=== PATIENT | female | born 1955 | race Caucasian/White ===

== ENCOUNTER → 2016-05-13 | Outpatient (CLI) | payer OTHER ==
[~2016-05-13] MED LIST: /ATOR40TA OR; /ESOM40CA; /MOXI40TA; ACET65TA OR; ALBU0.63 INH; ALBU17IN INH; ALBU2TAB OR; ALBU83IN IN; ALBU83IN INH; AMIT10TA PO; AMIT10TA2 OR; AMIT25TA PO; ASPI1TAB PO; ASPI81TA85 PO; CEPA0.05 PO; CHOL4PW PO; DEXI30CA PO; DILA2TAB; FAMO40TA3 PO; FLAG250T; FLAG500T; IBUP600T; LIPI20TA PO; NICO21DI4 TD; OTC SINUS MED PO; PLAV75TA2 OR; PLAV75TA38 PO; PRED10TA PO; PREV15CA OR; RANI15TA PO; TYLE325T5 PO; XYZA5TAB2 PO; XYZASOL2; XYZASOL2 PO; ZOFR20TA PO; [UNRECOGNIZED DRUG - CODE] PO; [UNRECOGNIZED DRUG - CODE] XX; [UNRECOGNIZED DRUG - OTHER] PO; dexilant PO
--- NOTE | 2016-05-13 09:00 | REP ---
Chest x-ray: Two views. History: COPD. Comparison chest x-ray is from July 01, 2014. Findings: The lungs are slightly hyperinflated but clear. Pleural angles are sharp. Heart size is normal. There are degenerative changes in the thoracic spine. Pulmonary vasculature is not increased. Impression: Mild hyperinflation otherwise no acute disease. Signed by Gunnar Guillaume MD 05/13/2016 12:22 P
[2016-05-13 12:34] LABS: BASO % 0.4 % (0.0-1.0); EOS # 0.3 K/mm3 (0.0-0.50); EOS % 4.3 % (0.0-3.0); LARGE UNSTAINED CELL # 0.1 K/mm3 (0.0-0.4); LARGE UNSTAINED CELL % 1.3 % (0.0-4.0); LYMPH # 2.3 K/mm3 (1.5-4.5); LYMPH % 30.7 % (24.0-44.0); MEAN CORPUSCULAR HEMOGLOBIN 29.7 pg (27.0-33.0); MEAN CORPUSCULAR HGB CONC 32.3 g/dl (32.0-36.5); MEAN CORPUSCULAR VOLUME 91.9 fl (80.0-96.0); MONO # 0.4 K/mm3 (0.0-0.8); MONO % 6.1 % (0.0-5.0); NEUTROPHILS # 4.1 K/mm3 (1.8-7.7); NEUTROPHILS % 57.3 % (36.0-66.0); PLATELET COUNT, AUTOMATED 296 k/mm3 (150-450); RED CELL DISTRIBUTION WIDTH 13.3 % (11.5-14.5); WHITE BLOOD COUNT 7.2 K/mm3 (4.0-10.0)
[2016-05-13 12:58] LABS: VITAMIN B12 LEVEL 618 PG/ML
[2016-05-13 12:59] LABS: FOLATE 15.2 NG/ML
[2016-05-13 13:09] LABS: ALBUMIN 3.9 GM/DL (3.2-5.2); ALBUMIN/GLOBULIN RATIO 1.05 (1.00-1.93); ALKALINE PHOSPHATASE 204 U/L (45-117); ALT/SGPT 33 U/L (12-78); ANION GAP 9 MEQ/L (8-16); AST/SGOT 21 U/L (15-37); BILIRUBIN,TOTAL 0.4 MG/DL (0.2-1.0); BLOOD UREA NITROGEN 18 MG/DL (7-18); CARBON DIOXIDE LEVEL 29 MEQ/L (21-32); CHLORIDE LEVEL 107 MEQ/L (98-107); CHOLESTEROL LEVEL 170 MG/DL (<200); CREATININE FOR GFR 0.89 MG/DL (0.55-1.02); GLOMERULAR FILTRATION RATE > 60.0 (>45); GLUCOSE, FASTING 91 MG/DL (80-110); MAGNESIUM LEVEL 2.1 MG/DL (1.8-2.4); PHOSPHORUS LEVEL 3.8 MG/DL (2.5-4.9); POTASSIUM SERUM 4.3 MEQ/L (3.5-5.1); SODIUM LEVEL 145 MEQ/L (136-145); TOTAL PROTEIN 7.6 GM/DL (6.4-8.2); TRIGLYCERIDES LEVEL 132 MG/DL (<150)
== END ==
LOC: M ADAMS 08:05
PROVIDERS: ATTEND Physician Assistant Medical
DX: E78.2 Mixed hyperlipidemia (principal); R53.83 Other fatigue; J44.9 Chronic obstructive pulmonary disease, unspecified

== ENCOUNTER → 2016-05-24 | Outpatient (CLI) | payer OTHER ==
--- NOTE | 2016-05-24 11:10 | REP ---
MRI BRAIN WITHOUT CONTRAST: HISTORY: Left side weakness. COMPARISON: 11/12/2011. Areas of increased signal intensity on T2-weighted images are present in the periventricular and subcortical white matter and candis. This represents small vessel ischemic disease. There is no intraparenchymal hemorrhage, infarct, mass or midline shift. The ventricular system is normal in appearance. There is no extracerebral collection. Mucosal thickening is present in the ethmoid and right maxillary sinuses. IMPRESSION: Small vessel ischemic disease. Signed by José Thayer MD 05/24/2016 11:12 A
== END ==
LOC: M RAD 09:31
PROVIDERS: ATTEND Physician Assistant Medical
DX: I63.9 Cerebral infarction, unspecified (principal)

== ENCOUNTER → 2016-07-12 | Outpatient (REF) | payer OTHER ==
[2016-07-12 19:01] LABS: ANION GAP 8 MEQ/L (8-16); BLOOD UREA NITROGEN 13 MG/DL (7-18); CALCIUM LEVEL 8.8 MG/DL (8.8-10.2); CARBON DIOXIDE LEVEL 28 MEQ/L (21-32); CHLORIDE LEVEL 108 MEQ/L (98-107); CREATININE FOR GFR 0.83 MG/DL (0.55-1.02); GLOMERULAR FILTRATION RATE > 60.0 (>45); GLUCOSE, FASTING 99 MG/DL (80-110); POTASSIUM SERUM 4.6 MEQ/L (3.5-5.1); SODIUM LEVEL 144 MEQ/L (136-145)
== END ==
LOC: M LAB REF 16:02
PROVIDERS: ATTEND Physician Assistant Medical
DX: L04.0 Acute lymphadenitis of face, head and neck (principal)

== ENCOUNTER → 2016-07-20 | Outpatient (CLI) | payer OTHER ==
[~2016-07-20] MED LIST changes: +ISOVUE-370 76% 100ML VIAL (Q9967) As Ordered ONE
--- NOTE | 2016-07-20 09:19 | REP ---
CT NECK WITH CONTRAST: HISTORY: Acute lymphadenitis. CONTRAST: Isovue 370, 75 mL. COMPARISON: 05/03/2014 The naso-, mariela- and hypopharynx, larynx, and subglottic trachea are normal in appearance. The salivary glands are normal. A 7 mm calcification is present in the right thyroid lobe. The left thyroid lobe is normal in appearance. Small lymph nodes less than 1 cm in size are present in the internal jugular chains, posterior triangles, submandibular, submental and supraclavicular areas. Atherosclerotic calcification is present at the carotid bifurcations. Degenerative change is present in the cervical spine. The lung apices are clear. Mucosal thickening is present in the right ethmoid and maxillary sinuses. IMPRESSION: There is no neck mass or adenopathy. Signed by José Thayer MD 07/20/2016 09:23 A
== END ==
LOC: M RAD 07:34
PROVIDERS: ATTEND Physician Assistant Medical
DX: I88.9 Nonspecific lymphadenitis, unspecified (principal)

== ENCOUNTER → 2016-07-22 | Outpatient (CLI) | payer OTHER ==
[~2016-07-22] MED LIST changes: -ISOVUE-370 76% 100ML VIAL (Q9967) As Ordered ONE
--- NOTE | 2016-07-22 07:59 | REP ---
Clinical: Solitary thyroid nodule. Technique: Real time alex scale and color evaluation using linear high frequency transducer. Findings: The thyroid gland is relatively normal in contour, size, and parenchymal echogenicity. Right lobe measures 3.8 x 1.1 x 1.1 cm and includes 7 mm calcified nodule. Left lobe measures 3.3 x 1.4 x 1.2 cm without cyst or nodule. Impression: 7 mm calcified nodule in the right thyroid lobe. Signed by Jose Gonzalez MD 07/22/2016 07:50 A
== END ==
LOC: M RAD 07:01
PROVIDERS: ATTEND Physician Assistant Medical
DX: E04.1 Nontoxic single thyroid nodule (principal)

== ENCOUNTER → 2016-08-09 | Outpatient (REF) | payer OTHER | LOC: M LABDRAW1 13:10 | PROVIDERS: ATTEND Internal Medicine Endocrinology, Diabetes & Metabolism | DX: E04.1 Nontoxic single thyroid nodule (principal) ==

== ENCOUNTER → 2016-10-18 | Outpatient (CLI) | payer OTHER ==
[~2016-10-18] MED LIST changes: -DEXI30CA PO; +DEXI30CA2 PO; +PLAV1TAB2 PO; -PLAV75TA38 PO
--- NOTE | 2016-10-18 19:13 | REP ---
PA and lateral chest: Comparisons 07/01/2014. The lung garcia are clear. The cardiac size is normal The ken, mediastinum, and bony thorax are unremarkable. Impression: Negative PA and lateral chest. . There is no interval change. Signed by Harvey Zuluaga MD 10/18/2016 07:05 P
== END ==
LOC: M RAD 17:09
PROVIDERS: ATTEND Physician Assistant Medical
DX: J06.9 Acute upper respiratory infection, unspecified (principal)

== ENCOUNTER → 2017-07-30 | Outpatient (REF) | payer OTHER ==
[2017-07-30 17:41] LABS: ALBUMIN 3.8 GM/DL (3.2-5.2); ALBUMIN/GLOBULIN RATIO 1.12 (1.00-1.93); ALKALINE PHOSPHATASE 163 U/L (45-117); ALT/SGPT 30 U/L (12-78); ANION GAP 5 MEQ/L (8-16); AST/SGOT 13 U/L (7-37); BILIRUBIN,TOTAL 0.3 MG/DL (0.2-1.0); BLOOD UREA NITROGEN 22 MG/DL (7-18); C REACTIVE PROTEIN QUANTITATIV 1.12 MG/DL (0.00-0.30); CALCIUM LEVEL 9.1 MG/DL (8.8-10.2); CARBON DIOXIDE LEVEL 30 MEQ/L (21-32); CHLORIDE LEVEL 106 MEQ/L (98-107); CHOLESTEROL LEVEL 257 MG/DL (<200); CHOLESTEROL RISK RATIO 3.724 (<5); CPK CREATINE PHOSPHOKINASE 67 U/L (26-192); CREATININE FOR GFR 0.76 MG/DL (0.55-1.30); GLOMERULAR FILTRATION RATE > 60.0 (>45); GLUCOSE, FASTING 95 MG/DL (70-100); HDL CHOLESTEROL 69 MG/DL (>40); LDL CHOLESTEROL 161.8 MG/DL (<100); NON-HDL-C 188 MG/DL; POTASSIUM SERUM 4.6 MEQ/L (3.5-5.1); SODIUM LEVEL 141 MEQ/L (136-145); TOTAL PROTEIN 7.2 GM/DL (6.4-8.2); TRIGLYCERIDES LEVEL 131 MG/DL (<150)
[2017-07-30 18:30] LABS: ERYTHROCYTE SEDIMENTATION RATE 8 mm/hr (0-30)
== END ==
LOC: M LABDRWAD 14:44
DX: M62.82 Rhabdomyolysis (principal); Z72.0 Tobacco use
CPT/HCPCS: 82550

== ENCOUNTER → 2017-10-03 | Outpatient (REF) | payer OTHER ==
[2017-10-03 12:31] LABS: BASO # 0.1 10^3/uL (0.0-0.2); BASO % 0.9 % (0.0-1.0); EOS # 0.2 10^3/uL (0.0-0.50); EOS % 3.9 % (0.0-3.0); HEMATOCRIT 44.6 % (36.0-47.0); HEMOGLOBIN 14.7 g/dl (12.0-15.5); IMMATURE GRANULOCYTE % 0.2 % (0-3.0); LYMPH # 2.2 10^3/uL (1.5-4.5); LYMPH % 38.1 % (24.0-44.0); MEAN CORPUSCULAR HEMOGLOBIN 29.9 pg (27.0-33.0); MEAN CORPUSCULAR VOLUME 90.8 fl (80.0-96.0); MONO # 0.5 10^3/uL (0.0-0.8); MONO % 8.2 % (0.0-5.0); NEUTROPHILS # 2.9 10^3/uL (1.8-7.7); NEUTROPHILS % 48.7 % (36.0-66.0); PLATELET COUNT, AUTOMATED 292 10^3/uL (150-450); RED BLOOD COUNT 4.91 10^6/uL (4.00-5.40); RED CELL DISTRIBUTION WIDTH 14.4 % (11.5-14.5); WHITE BLOOD COUNT 5.9 10^3/uL (4.0-10.0)
[2017-10-03 12:45] LABS: ALBUMIN 3.8 GM/DL (3.2-5.2); ALBUMIN/GLOBULIN RATIO 1.23 (1.00-1.93); ALKALINE PHOSPHATASE 156 U/L (45-117); ALT/SGPT 31 U/L (12-78); ANION GAP 9 MEQ/L (8-16); AST/SGOT 18 U/L (7-37); BILIRUBIN,TOTAL 0.3 MG/DL (0.2-1.0); BLOOD UREA NITROGEN 18 MG/DL (7-18); CALCIUM LEVEL 8.9 MG/DL (8.8-10.2); CARBON DIOXIDE LEVEL 28 MEQ/L (21-32); CHLORIDE LEVEL 108 MEQ/L (98-107); CHOLESTEROL LEVEL 212 MG/DL (<200); CHOLESTEROL RISK RATIO 3.719 (<5); CPK CREATINE PHOSPHOKINASE 149 U/L (26-192); CREATININE FOR GFR 0.85 MG/DL (0.55-1.30); GLOMERULAR FILTRATION RATE > 60.0 (>45); GLUCOSE, FASTING 92 MG/DL (70-100); HDL CHOLESTEROL 57 MG/DL (>40); LDL CHOLESTEROL 130.8 MG/DL (<100); NON-HDL-C 155 MG/DL; POTASSIUM SERUM 4.1 MEQ/L (3.5-5.1); SODIUM LEVEL 145 MEQ/L (136-145); TOTAL PROTEIN 6.9 GM/DL (6.4-8.2); TRIGLYCERIDES LEVEL 121 MG/DL (<150)
== END ==
LOC: M LABDRWAD 12:12
DX: G45.9 Transient cerebral ischemic attack, unspecified (principal)

== ENCOUNTER → 2017-12-10 | Outpatient (REF) | payer OTHER ==
[2017-12-10 17:20] LABS: ALBUMIN 4.2 GM/DL (3.2-5.2); ALBUMIN/GLOBULIN RATIO 1.35 (1.00-1.93); ALKALINE PHOSPHATASE 162 U/L (45-117); ALT/SGPT 32 U/L (12-78); ANION GAP 8 MEQ/L (8-16); AST/SGOT 16 U/L (7-37); BILIRUBIN,TOTAL 0.4 MG/DL (0.2-1.0); BLOOD UREA NITROGEN 15 MG/DL (7-18); CALCIUM LEVEL 9.6 MG/DL (8.8-10.2); CARBON DIOXIDE LEVEL 30 MEQ/L (21-32); CHLORIDE LEVEL 105 MEQ/L (98-107); CHOLESTEROL LEVEL 227 MG/DL (<200); CHOLESTEROL RISK RATIO 4.053 (<5); CPK CREATINE PHOSPHOKINASE 294 U/L (26-192); CREATININE FOR GFR 0.78 MG/DL (0.55-1.30); GLOMERULAR FILTRATION RATE > 60.0 (>45); GLUCOSE, FASTING 94 MG/DL (70-100); HDL CHOLESTEROL 56 MG/DL (>40); LDL CHOLESTEROL 151.6 MG/DL (<100); NON-HDL-C 171 MG/DL; POTASSIUM SERUM 4.2 MEQ/L (3.5-5.1); SODIUM LEVEL 143 MEQ/L (136-145); TOTAL PROTEIN 7.3 GM/DL (6.4-8.2); TRIGLYCERIDES LEVEL 97 MG/DL (<150)
== END ==
LOC: M SFHCADAM 10:22
DX: R25.2 Cramp and spasm (principal); E78.5 Hyperlipidemia, unspecified

== ENCOUNTER → 2018-04-14 | Outpatient (REF) | payer OTHER ==
[~2018-04-14] MED LIST changes: +AZIT500T2 PO; +CETI10TA PO; +CLAR5TAB7 PO; +DEXI60CA2 PO; +PRED10TA2 PO; +ZITHTAB PO; -ZOFR20TA PO; +ZOFR4TAB16 PO
[2018-04-14 17:32] LABS: ALBUMIN 3.9 GM/DL (3.2-5.2); ALT/SGPT 27 U/L (12-78); BILIRUBIN,TOTAL 0.4 MG/DL (0.2-1.0); BLOOD UREA NITROGEN 9 MG/DL (7-18); C REACTIVE PROTEIN QUANTITATIV 7.57 MG/DL (0.00-0.30); CALCIUM LEVEL 9.3 MG/DL (8.8-10.2); CARBON DIOXIDE LEVEL 28 MEQ/L (21-32); CHLORIDE LEVEL 104 MEQ/L (98-107); CPK CREATINE PHOSPHOKINASE 301 U/L (26-192); CREATININE FOR GFR 0.64 MG/DL (0.55-1.30); GLOMERULAR FILTRATION RATE > 60.0 (>45); GLUCOSE, FASTING 88 MG/DL (70-100); POTASSIUM SERUM 4.6 MEQ/L (3.5-5.1); RHEUMATOID FACTOR QUANT < 10.0 IU/ML (<15.0); SODIUM LEVEL 140 MEQ/L (136-145); TOTAL PROTEIN 7.4 GM/DL (6.4-8.2)
== END ==
LOC: M SFHCADAM 11:03
PROVIDERS: ATTEND Family Medicine
DX: R74.8 Abnormal levels of other serum enzymes (principal)

== ENCOUNTER → 2018-04-17 | Outpatient (CLI) | payer OTHER ==
--- NOTE | 2018-04-17 09:51 | REP ---
Chest x-ray: Two views. History: Wheezing. Comparison study: July 12, 2017. Findings: The lungs are well inflated and clear. The pleural angles are sharp. Heart size is normal. There are degenerative changes in the thoracic spine. Pulmonary vasculature is not increased. Impression: No acute disease. Electronically Signed by Gunnar Guillaume MD 04/17/2018 09:43 A
== END ==
LOC: M ADAMS 09:14
PROVIDERS: ATTEND Family Medicine
DX: R06.2 Wheezing (principal)

== ENCOUNTER → 2018-05-20 | Outpatient (CLI) | payer MEDICARE, MEDICAID ==
[2018-05-20 18:59] LABS: BASO % 0.5 % (0.0-1.0); EOS # 0.3 10^3/uL (0.0-0.50); EOS % 3.7 % (0.0-3.0); HEMATOCRIT 50.7 % (36.0-47.0); HEMOGLOBIN 16.4 g/dl (12.0-15.5); LYMPH % 23.9 % (24.0-44.0); MEAN CORPUSCULAR HEMOGLOBIN 29.7 pg (27.0-33.0); MEAN CORPUSCULAR HGB CONC 32.3 g/dl (32.0-36.5); MEAN CORPUSCULAR VOLUME 91.7 fl (80.0-96.0); MONO # 0.6 10^3/uL (0.0-0.8); MONO % 7.6 % (0.0-5.0); NEUTROPHILS # 5.3 10^3/uL (1.8-7.7); NEUTROPHILS % 63.9 % (36.0-66.0); PLATELET COUNT, AUTOMATED 290 10^3/uL (150-450); RED BLOOD COUNT 5.53 10^6/uL (4.00-5.40); WHITE BLOOD COUNT 8.3 10^3/uL (4.0-10.0)
== END ==
LOC: M LABDRWAD 12:29
PROVIDERS: ATTEND Physician Assistant
DX: R59.0 Localized enlarged lymph nodes (principal); J02.9 Acute pharyngitis, unspecified

== ENCOUNTER 2018-07-30 03:26 | Inpatient (IN) | payer MEDICARE, MEDICAID ==
[~2018-07-30] VITALS: Ht 170.2 cm; Wt 70.9 kg
[~2018-07-30 03:26] MED LIST changes: -/ATOR40TA OR; -/ESOM40CA; -/MOXI40TA; -ASPI1TAB PO; +ASPI81TA26 PO; +AVEL1TAB2; +LIPI1TAB2 OR; +NEXI1CAP3; +PRED-351 PO; -PRED10TA PO; +[UNRECOGNIZED DRUG - CODE] PO; -[UNRECOGNIZED DRUG - CODE] PO; +[UNRECOGNIZED DRUG - CODE] XX; -[UNRECOGNIZED DRUG - CODE] XX
[2018-07-30 04:03] LABS: BASO % 0.3 % (0.0-1.0); EOS # 0.4 10^3/uL (0.0-0.50); EOS % 3.7 % (0.0-3.0); HEMATOCRIT 44.7 % (36.0-47.0); HEMOGLOBIN 14.3 g/dl (12.0-15.5); LYMPH # 1.9 10^3/uL (1.5-4.5); LYMPH % 18.5 % (24.0-44.0); MEAN CORPUSCULAR HEMOGLOBIN 29.3 pg (27.0-33.0); MEAN CORPUSCULAR VOLUME 91.6 fl (80.0-96.0); MONO # 0.7 10^3/uL (0.0-0.8); NEUTROPHILS # 7.3 10^3/uL (1.8-7.7); NEUTROPHILS % 70.1 % (36.0-66.0); PLATELET COUNT, AUTOMATED 265 10^3/uL (150-450); RED BLOOD COUNT 4.88 10^6/uL (4.00-5.40); WHITE BLOOD COUNT 10.4 10^3/uL (4.0-10.0)
[2018-07-30] MEDS ORDERED: dexameTHASONE 20 MG/5 ML VIAL (J1100) IV ONE ×2 (04:15→04:45)
[2018-07-30 04:24] LABS: BLOOD UREA NITROGEN 18 MG/DL (7-18); CALCIUM LEVEL 8.2 MG/DL (8.8-10.2); CARBON DIOXIDE LEVEL 28 MEQ/L (21-32); CHLORIDE LEVEL 109 MEQ/L (98-107); CREATININE FOR GFR 0.75 MG/DL (0.55-1.30); GLOMERULAR FILTRATION RATE > 60.0 (>45); GLUCOSE, FASTING 105 MG/DL (70-100); POTASSIUM SERUM 3.8 MEQ/L (3.5-5.1); SODIUM LEVEL 143 MEQ/L (136-145)
[2018-07-30] MEDS ORDERED: dexameTHASONE 20 MG/5 ML VIAL (J1100) As Ordered ONE (04:46)
[2018-07-30] MEDS: IPRATROPIUM 0.5MG/ALBUTEROL 2.5MG INH SOL UD 3ML (DUONEB)(J7620) NEB SCH ×6 (04:48→20:48)
[2018-07-30 05:08] LABS: ABG BASE EXCESS -0.5 (-2.0-2.0); ABG HCO3 25.3 MEQ/L (22.0-26.0); ABG O2 SATURATION 89.7 % (95.0-99.0); ABG PARTIAL PRESSURE CO2 46.2 mmHg (35.0-45.0); ABG PARTIAL PRESSURE O2 58.5 mmHg (75.0-100.0); ABG STANDARD HCO3 23.8 MEQ/L (22.0-26.0); ABG TOTAL CO2 26.8 MEQ/L (23.0-31.0); ABG pH (ARTERIAL) 7.357 UNITS (7.350-7.450)
[2018-07-30] MEDS ORDERED: ACET-683 PO (05:23)
[2018-07-30] MEDS ORDERED: VENTAER INH (05:23)
[2018-07-30] MEDS ORDERED: LIDO4PAD TOP (05:23)
[2018-07-30] MEDS ORDERED: ALBUTEROL SULFATE 2.5 MG/0.5 ML INH NEB SOLN NEB PRN (06:15)
[2018-07-30] MEDS ORDERED: AZITHROMYCIN 250 MG TAB PO SCH (06:15)
[2018-07-30] MEDS ORDERED: LIDOCAINE 5% OINT 30 GM TOP PRN (06:30)
--- NOTE | 2018-07-30 08:05 | REP ---
Chest one-view HISTORY: Cough Comparison: 04/17/2018 The lungs are clear. The heart is normal in size. The pulmonary vasculature is normal in appearance. Impression: No acute disease. Electronically Signed by José Thayer MD 07/30/2018 07:56 A
[2018-07-30] MEDS: PANTOPRAZOLE 40MG TAB (PROTONIX) PO SCH ×3 (08:33→09:00)
[2018-07-30] MEDS: HEPARIN SOD (PORCINE) 5000 UNITS/ML VIAL SC SCH ×3 (08:34→23:05)
[2018-07-30 10:00] VITALS: BP 108/61
--- NOTE | 2018-07-30 10:20 | ECGEPIP ---
Stationary ECG Study [facility] - ED Test Date: 2018-07-30 Pat Name: CINTIA HODGE Department: Room: [place] [address] Gender: F Set Decorator: BRITTA : 1955 Requested By: OSMIN RAMIREZ Order Number: [id number] Reading MD: Ashley Dhillon Measurements Intervals Haines Rate: 94 P: 84 OR: 128 QRS: 41 QRSD: 85 T: 57 QT: 356 QTc: 446 Interpretive Statements SINUS RHYTHM NSTTW ABNORMALITY Electronically Signed On 07-30-2018 10:20:36 EDT by Ashley Dhillon
[2018-07-30] MEDS: methylPREDNISolone INJ 125 MG/2 ML VIAL (J2930) IV SCH ×2 (12:59→20:01)
[2018-07-30 14:00] VITALS: BP 137/71
--- NOTE | 2018-07-30 14:56 | IPNPDOC ---
Subjective Date Seen The patient was seen on 07/30/18. N.B. I am writing this progress not without the benefit of an H&P available, nor any checkout from the admitting physician. I have reviewed her orders, and interviewed the patient for the information in this note. (traveling representative) Subjective Chief Complaint/HPI Difficulty breathing Events since last encounter Ana appears to be admitted for a COPD exacerbation. She reports she continues to be quite short of breath when she gets up and moves around, for example to go to the bathroom. She also reports that she gets significant lower extremity cramps at nighttime she has an albuterol nebulizer treatment. This is to whether she is at home or here. She reports that Lidoderm patches have seemed to help mitigate the symptoms in the past. General: Reports: Normal Appetite Constitutional: Denies: Chills, Fever Pulmonary: Reports: Dyspnea, Cough; Denies: Pleuritic Chest Pain Cardiovascular: Denies: Chest Pain, Palpitations Psych: Reports: Mood Normal Objective Physical Examination General Exam: Positive: Alert, Cooperative (sitting at the side of her bed talking to her daughter when I entered the room), No Acute Distress Eye Exam: Positive: Conjunctiva & lids normal; Negative: Sclera icteric ENT Exam: Positive: Mucous membr. moist/pink Neck Exam: Negative: JVD, Lymphadenopathy Chest Exam: Positive: Wheezing (mild but noted in all lung garcia), Diminished Heart Exam: Positive: Rate Normal, Normal S1, Normal S2; Negative: Murmurs Abdomen Exam: Positive: Normal bowel sounds, Soft; Negative: Tenderness Extremity Exam: Negative: Edema Psych Exam: Positive: Mood NL, Oriented x 3 A-FIB/CHADSVASC A-FIB History Current/History of A-Fib/PAF?: No Assessment /Plan Problems (1) COPD exacerbation Status: Acute Discussed With: Patient Problem Specific Plan: Monitor Clinically Problem Text: I reviewed the natural history of COPD exacerbations with her. I set the stage that she will not likely be ready for discharge until the end of the week. At this point I think she is on a reasonable regimen. The only thing I'll change is stopping the azithromycin, since I see no real evidence of a bacterial infection. I have ordered pro-calcitonin level to help clarify this. (2) Asthma Status: Acute Discussed With: Patient Problem Specific Plan: Monitor Clinically Problem Text: She has a known history of reactive airway disease. She reports that she has recently needed her home nebulized albuterol more than usual. I explained to her albuterol transiently lowers potassium levels; I strongly suspect this is the etiology of her lower extremity cramps. I will add on low- dose potassium supplementation to see if it mitigate this without making her hyperkalemic. Additionally I'll start Lidoderm patches his these have seemed to help in the past. (3) Seasonal allergies Status: Chronic Problem Text: Continue current regimen including Zyrtec. (4) GERD (gastroesophageal reflux disease) Status: Chronic Problem Specific Plan: Monitor Clinically Problem Text: Continue current dose of PPI. We will change this to IV in order to avoid the yellow dye in the tablets that we have as she has an allergy to yellow dye. Plan/VTE VTE Prophylaxis Ordered?: Yes (subcutaneous heparin) VS, I&O, 24H, Fishbone Vital Signs/I&O Vital Signs Date Time Temp Pulse Resp B/P (MAP) Pulse Ox O2 Delivery O2 Flow Rate FiO2 07/30/18 14:00 97.6 109 19 137/71 (93) 90 4.0 07/30/18 09:21 Nasal Cannula Laboratory Data 24H LABS Laboratory Tests 2 07/30/18 03:54: Immature Granulocyte % (Auto) 0.4, White Blood Count 10.4H, Red Blood Count 4.88, Hemoglobin 14.3, Hematocrit 44.7, Mean Corpuscular Volume 91.6, Mean Corpuscular Hemoglobin 29.3, Mean Corpuscular Hemoglobin Concent 32.0, Red Cell Distribution Width 14.1, Platelet Count 265, Neutrophils (%) (Auto) 70.1H, Lymphocytes (%) (Auto) 18.5L, Monocytes (%) (Auto) 7.0H, Eosinophils (%) (Auto) 3.7H, Basophils (%) (Auto) 0.3, Neutrophils # (Auto) 7.3, Lymphocytes # (Auto) 1.9, Monocytes # (Auto) 0.7, Eosinophils # (Auto) 0.4, Basophils # (Auto) 0.0, Nucleated Red Blood Cells % (auto) 0.0, Anion Gap 6L, Glomerular Filtration Rate > 60.0, Lactic Acid Level 1.0, Blood Urea Nitrogen 18, Creatinine 0.75, Sodium Level 143, Potassium Level 3.8, Chloride Level 109H, Carbon Dioxide Level 28, Calcium Level 8.2L 07/30/18 04:55: Blood Gas Bicarbonate Standard 23.8, Arterial Blood pH 7.357, Arterial Blood Partial Pressure CO2 46.2H, Arterial Blood Partial Pressure O2 58.5L, Arterial Blood Total CO2 26.8, Arterial Blood HCO3 25.3, Arterial Blood Base Excess -0.5, Arterial Blood Oxygen Saturation 89.7L CBC/BMP Laboratory Tests 07/30/18 03:54 Red Blood Count 4.88, Mean Corpuscular Volume 91.6, Mean Corpuscular Hemoglobin 29.3, Mean Corpuscular Hemoglobin Concent 32.0, Red Cell Distribution Width 14.1, Neutrophils (%) (Auto) 70.1 H, Lymphocytes (%) (Auto) 18.5 L, Monocytes (%) (Auto) 7.0 H, Eosinophils (%) (Auto) 3.7 H, Basophils (%) (Auto) 0.3, Neutrophils # (Auto) 7.3, Lymphocytes # (Auto) 1.9, Monocytes # (Auto) 0.7, E osinophils # (Auto) 0.4, Basophils # (Auto) 0.0, Calcium Level 8.2 L Microbiology Microbiology 07/30/18 Blood Culture, Received Pending 07/30/18 Blood Culture, Received Pending Dylan Patino MD Jul 30, 2018 14:56
[2018-07-30] MEDS: PANTOPRAZOLE 40MG INJ (PROTONIX) (C9113) IV SCH (16:14)
[2018-07-30] MEDS: CETIRIZINE (ZyrTEC) 10 MG TAB PO SCH (20:01)
[2018-07-30] MEDS: CLOPIDOGREL 75 MG TAB PO SCH (20:01)
[2018-07-30] MEDS: LIDOCAINE 5% (LIDODERM) PATCH TD PRN (21:12)
[2018-07-30] MEDS: guaiFENesin SYRUP 200 MG/10 ML UDC PO PRN (21:12)
[2018-07-30] MEDS: **NOTE PATIENT COMMENT** MISC XX SCH (21:12)
[2018-07-30 22:00] VITALS: BP 144/85
[2018-07-30] MEDS: ACETAMINOPHEN TAB 650MG DOSE (2X325MG) PO PRN (23:05)
[2018-07-31] MEDS: IPRATROPIUM 0.5MG/ALBUTEROL 2.5MG INH SOL UD 3ML (DUONEB)(J7620) NEB SCH ×4 (01:42→21:24)
[2018-07-31] MEDS: methylPREDNISolone INJ 125 MG/2 ML VIAL (J2930) IV SCH ×3 (04:34→20:50)
[2018-07-31] MEDS: guaiFENesin SYRUP 200 MG/10 ML UDC PO PRN ×2 (04:34→20:50)
[2018-07-31 06:00] VITALS: BP 127/56
[2018-07-31 06:07] LABS: HEMATOCRIT 42.9 % (36.0-47.0); HEMOGLOBIN 13.4 g/dl (12.0-15.5); MEAN CORPUSCULAR HEMOGLOBIN 28.8 pg (27.0-33.0); MEAN CORPUSCULAR HGB CONC 31.2 g/dl (32.0-36.5); MEAN CORPUSCULAR VOLUME 92.1 fl (80.0-96.0); PLATELET COUNT, AUTOMATED 280 10^3/uL (150-450); RED BLOOD COUNT 4.66 10^6/uL (4.00-5.40); WHITE BLOOD COUNT 12.5 10^3/uL (4.0-10.0)
[2018-07-31 06:30] LABS: ALBUMIN 3.6 GM/DL (3.2-5.2); ALT/SGPT 21 U/L (12-78); BILIRUBIN,TOTAL 0.2 MG/DL (0.2-1.0); BLOOD UREA NITROGEN 18 MG/DL (7-18); CALCIUM LEVEL 8.8 MG/DL (8.8-10.2); CARBON DIOXIDE LEVEL 29 MEQ/L (21-32); CHLORIDE LEVEL 109 MEQ/L (98-107); GLOMERULAR FILTRATION RATE > 60.0 (>45); GLUCOSE, FASTING 130 MG/DL (70-100); POTASSIUM SERUM 4.3 MEQ/L (3.5-5.1); SODIUM LEVEL 142 MEQ/L (136-145); TOTAL PROTEIN 6.9 GM/DL (6.4-8.2)
[2018-07-31] MEDS: PANTOPRAZOLE 40MG INJ (PROTONIX) (C9113) IV SCH (08:12)
[2018-07-31] MEDS: POTASSIUM CHLORIDE 10 MEQ SR TABLET PO SCH (08:12)
[2018-07-31] MEDS: HEPARIN SOD (PORCINE) 5000 UNITS/ML VIAL SC SCH ×3 (08:12→23:37)
[2018-07-31] MEDS: ACETAMINOPHEN TAB 650MG DOSE (2X325MG) PO PRN ×2 (08:22→23:37)
--- NOTE | 2018-07-31 08:51 | HPE ---
DATE OF ADMISSION: 07/30/2018 CHIEF COMPLAINT: Shortness of breath. HISTORY OF PRESENTING ILLNESS: A 63-year-old female with history of chronic obstructive pulmonary disease (COPD) was brought to emergency department complaining of worsening shortness of breath, cough, whitish sputum for the 2 days. No specific aggravating or relieving factor. In the emergency department, patient was found with vitals of temperature 98.6, heart rate 102, respiratory rate 20, blood pressure 118/66, saturating 85% on room air improved with 4 liters of supplemental oxygen to 94%. A chest x-ray did not show any acute pathology. Patient was given intravenous (IV) Decadron, three DuoNebs without any relief. Hospitalist service was consulted to admit the patient for further management. Patient was and examined at bedside. Family members at bedside. Patient was not able to speak in full sentences, using accessory muscles of respiration. Patient complained of shortness of breath, cough, and whitish sputum. PAST MEDICAL HISTORY: COPD, gastroesophageal reflux disease (GERD), seasonal allergies, hyperlipidemia, history of CVA with no residual deficit, history of Clostridium (C) difficile infection in past. PAST SURGICAL HISTORY: (C) section, left oophorectomy, left shoulder lipoma biopsy, esophageal/vocal cyst removal, appendectomy, right shoulder rotator cuff repair. ALLERGIES: Multiple allergies: PENICILLIN unknown reaction, CEPHALOSPORIN unknown reaction MORPHINE causes hives, CLINDAMYCIN causes throat closing, ERYTHROMYCIN unknown reaction, SULFA DRUGS unknown reaction, TETRACYCLINE unknown reaction. HOME MEDICATIONS: Reviewed. Please refer to permanent medical record. SOCIAL HISTORY: Active smoker, occasional alcohol intake, denied illicit drug abuse, independent for activities of daily living. FAMILY HISTORY: Reviewed. Noncontributory. REVIEW OF SYSTEMS: 10-point review of system was performed and it was negative except as per history of presenting illness (HPI). PHYSICAL EXAMINATION: GENERAL: Cooperative, in mild respiratory distress. HEENT: Head atraumtic. Bilateral pupils round, reacting to light and accommodation. Oral mucosa moist. NECK: Supple. RESPIRATORY SYSTEM: Bilaterally decreased breath sounds, diffuse rhonchi, not able to speak in full sentences, using accessory muscle of respiration. CARDIOVASCULAR SYSTEM: Regular rate and rhythm. EXTREMITIES: No peripheral edema. SKIN: No rash. ABDOMEN: Soft, nontender. Normal bowel sounds. CENTRAL NERVOUS SYSTEM: No focal deficit. PSYCHIATRIC: Mood normal. Labs and vital signs and imaging studies reviewed. White count 10.4, hemoglobin 14.3, platelets 265. BUN 18, creatinine 0.75. Chest x-ray: No acute pathology. ABG is pH 7.357, pCO2 46.2, pO2 58.5. ASSESSMENT: 63-year-old, active smoker, female complaining of worsening shortness of breath, cough, whitish sputum for past few days. Patient stated that she was exposed to cats at her daughter's house. IMPRESSION: Acute hypoxic respiratory failure secondary to COPD exacerbation. PLAN: 1. Acute hypoxic respiratory failure secondary to COPD exacerbation: IV Solu-Medrol, oral azithromycin, DuoNebs, supplemental oxygen. Will continue to monitor respiratory status closely. 2. COPD exacerbation: IV Solu-Medrol, oral azithromycin. 3. Nicotine dependence: Patient was counseled about smoking cessation. 4. History of CVA: We will continue home medication Plavix. 5. Seasonal allergies: We will continue oral cetirizine.
[2018-07-31] MEDS ORDERED: FLUBLOK(EGG FREE)(QUAD)INFLUENZA VACC 0.5ML SYRINGE (90682)18YRS&OLDER IM ONE (09:00)
--- NOTE | 2018-07-31 10:49 | IPNPDOC ---
Subjective Date Seen The patient was seen on 07/31/18. Subjective Chief Complaint/HPI Pt this morning without new concerns. She reports that she thinks her breathing is the same or worse than yesterday. + dry cough. Would like a nicotine patch. General: Denies: Fatigue Constitutional: Denies: Chills, Fever Pulmonary: Reports: Dyspnea, Cough Cardiovascular: Denies: Chest Pain, Palpitations Gastrointestinal: Denies: Nausea, Vomiting, Diarrhea Psych: Reports: Mood Normal Objective Physical Examination General Exam: Positive: Alert, No Acute Distress ENT Exam: Positive: Mucous membr. moist/pink Chest Exam: Positive: Wheezing (mild but noted in all lung garcia), Diminished Heart Exam: Positive: Rate Normal, Normal S1, Normal S2; Negative: Murmurs Abdomen Exam: Positive: Normal bowel sounds, Soft; Negative: Tenderness Extremity Exam: Negative: Edema Psych Exam: Positive: Mood NL, Oriented x 3 A-FIB/CHADSVASC A-FIB History Current/History of A-Fib/PAF?: No Assessment /Plan Assessment 07/31: She complains of irritability and insomnia; discussed that these were likely secondary to her steroids. She reports that she is breathing better than previously, and I decreased her Solumedrol. Offered a Benadryl, but she states that it doesn't help her sleep. -- CDT Problems (1) COPD exacerbation Status: Acute Discussed With: Patient Problem Specific Plan: Monitor Clinically Problem Text: 07/31 Cont with nebs, O2, Solumedrol 80 Q8H. 07/30 I reviewed the natural history of COPD exacerbations with her. I set the stage that she will not likely be ready for discharge until the end of the week. At this point I think she is on a reasonable regimen. The only thing I'll change is stopping the azithromycin, since I see no real evidence of a bacterial infection. I have ordered pro-calcitonin level to help clarify this. (2) Asthma Status: Acute Discussed With: Patient Problem Specific Plan: Monitor Clinically Problem Text: She has a known history of reactive airway disease. She reports that she has recently needed her home nebulized albuterol more than usual. I explained to her albuterol transiently lowers potassium levels; I strongly suspect this is the etiology of her lower extremity cramps. I will add on low- dose potassium supplementation to see if it mitigate this without making her hyperkalemic. Additionally I'll start Lidoderm patches his these have seemed to help in the past. (3) Seasonal allergies Status: Chronic Problem Text: Continue current regimen including Zyrtec. (4) GERD (gastroesophageal reflux disease) Status: Chronic Problem Specific Plan: Monitor Clinically Problem Text: Continue current dose of PPI. We will change this to IV in order to avoid the yellow dye in the tablets that we have as she has an allergy to yellow dye. Plan/VTE VTE Prophylaxis Ordered?: Yes (subcutaneous heparin) VS, I&O, 24H, Fishbone Vital Signs/I&O Vital Signs Date Time Temp Pulse Resp B/P (MAP) Pulse Ox O2 Delivery O2 Flow Rate FiO2 07/31/18 08:00 4.0 07/31/18 06:00 97.5 99 18 127/56 (79) 96 07/30/18 09:21 Nasal Cannula I&O- Last 24 Hours up to 6 AM 07/31/18 06:00 Intake Total 1920 ml Balance 1920 ml Laboratory Data 24H LABS Laboratory Tests 2 07/31/18 05:30: Nucleated Red Blood Cells % (auto) 0.0, Anion Gap 4L, Glomerular Filtration Rate > 60.0, Blood Urea Nitrogen 18, Creatinine 0.60, Sodium Level 142, Potassium Level 4.3, Chloride Level 109H, Carbon Dioxide Level 29, Calcium Level 8.8, As partate Amino Transf (AST/SGOT) 10, Alanine Aminotransferase (ALT/SGPT) 21, Alkaline Phosphatase 146H, Total Bilirubin 0.2, Total Protein 6.9, Albumin 3.6, Albumin/Globulin Ratio 1.09 CBC/BMP Laboratory Tests 07/31/18 05:30 Red Blood Count 4.66, Mean Corpuscular Volume 92.1, Mean Corpuscular Hemoglobin 28.8, Mean Corpuscular Hemoglobin Concent 31.2 L, Red Cell Distribution Width 14.5, Calcium Level 8.8, Aspartate Amino Transf (AST/SGOT) 10, Alanine Aminotransferase (ALT/SGPT) 21, Alkaline Phosphatase 146 H, Total Bilirubin 0.2, Total Protein 6.9, Albumin 3.6 Microbiology Microbiology 07/30/18 Blood Culture - Preliminary, Resulted No growth after 24 hours . All specim... 07/30/18 Blood Culture - Preliminary, Resulted No growth after 24 hours . All specim... KEHINDE FELTON PA-C Jul 31, 2018 10:49 BHAVIK HERNÁNDEZ DO Jul 31, 2018 22:55
[2018-07-31] MEDS: NICOTINE 14 MG/24 HR TRANSDERMAL TD SCH (11:02)
[2018-07-31 14:00] VITALS: BP 104/64
[2018-07-31] MEDS: CETIRIZINE (ZyrTEC) 10 MG TAB PO SCH (20:50)
[2018-07-31] MEDS: CLOPIDOGREL 75 MG TAB PO SCH (20:50)
[2018-07-31] MEDS: LIDOCAINE 5% (LIDODERM) PATCH TD PRN (20:50)
[2018-07-31] MEDS: **NOTE PATIENT COMMENT** MISC XX SCH (20:57)
[2018-07-31 22:00] VITALS: BP 135/79
[2018-08-01] MEDS: IPRATROPIUM 0.5MG/ALBUTEROL 2.5MG INH SOL UD 3ML (DUONEB)(J7620) NEB SCH ×4 (02:00→19:53)
[2018-08-01] MEDS: methylPREDNISolone INJ 125 MG/2 ML VIAL (J2930) IV SCH ×3 (03:56→20:40)
[2018-08-01 06:00] VITALS: BP 119/61
[2018-08-01 08:00] VITALS: BP 138/78
[2018-08-01] MEDS: PANTOPRAZOLE 40MG INJ (PROTONIX) (C9113) IV SCH (08:23)
[2018-08-01] MEDS: HEPARIN SOD (PORCINE) 5000 UNITS/ML VIAL SC SCH ×2 (08:23→15:50)
[2018-08-01] MEDS: NICOTINE 14 MG/24 HR TRANSDERMAL TD SCH (08:24)
[2018-08-01] MEDS: POTASSIUM CHLORIDE 10 MEQ SR TABLET PO SCH (08:24)
[2018-08-01] MEDS: guaiFENesin SYRUP 200 MG/10 ML UDC PO PRN ×2 (10:22→20:40)
[2018-08-01 14:00] VITALS: BP 123/57
[2018-08-01] MEDS: ACETAMINOPHEN TAB 650MG DOSE (2X325MG) PO PRN (15:51)
[2018-08-01] MEDS: CLOPIDOGREL 75 MG TAB PO SCH (20:40)
[2018-08-01] MEDS: LIDOCAINE 5% (LIDODERM) PATCH TD PRN (20:40)
[2018-08-01] MEDS: CETIRIZINE (ZyrTEC) 10 MG TAB PO SCH (20:40)
[2018-08-01] MEDS: **NOTE PATIENT COMMENT** MISC XX SCH (20:44)
[2018-08-01 22:00] VITALS: BP 110/64
[2018-08-02] MEDS: HEPARIN SOD (PORCINE) 5000 UNITS/ML VIAL SC SCH ×3 (00:01→15:29)
[2018-08-02] MEDS: IPRATROPIUM 0.5MG/ALBUTEROL 2.5MG INH SOL UD 3ML (DUONEB)(J7620) NEB SCH ×4 (01:47→20:08)
[2018-08-02] MEDS: methylPREDNISolone INJ 125 MG/2 ML VIAL (J2930) IV SCH (03:30)
[2018-08-02 06:00] VITALS: BP 116/66
[2018-08-02] MEDS: PANTOPRAZOLE 40MG INJ (PROTONIX) (C9113) IV SCH (08:31)
[2018-08-02] MEDS: POTASSIUM CHLORIDE 10 MEQ SR TABLET PO SCH (08:31)
[2018-08-02] MEDS: NICOTINE 14 MG/24 HR TRANSDERMAL TD SCH (08:32)
[2018-08-02] MEDS: guaiFENesin SYRUP 200 MG/10 ML UDC PO PRN (09:56)
--- NOTE | 2018-08-02 11:15 | IPNPDOC ---
Subjective Date Seen The patient was seen on 08/02/18. Subjective Chief Complaint/HPI Patient sitting comfortably as I entered the room. She states she is feeling much better. She has not needed her oxygen since this morning. Constitutional: Denies: Chills, Fever Pulmonary: Reports: Dyspnea (improving ); Denies: Cough, Pleuritic Chest Pain Cardiovascular: Denies: Chest Pain, Palpitations, Orthopnea Gastrointestinal: Denies: Nausea, Vomiting, Abdominal Pain Psych: Reports: Mood Normal Objective Physical Examination General Exam: Positive: Alert, No Acute Distress ENT Exam: Positive: Mucous membr. moist/pink Chest Exam: Positive: Diminished; Negative: Rhonchi, Wheezing Heart Exam: Positive: Rate Normal, Normal S1, Normal S2; Negative: Murmurs Abdomen Exam: Positive: Normal bowel sounds, Soft; Negative: Tenderness Extremity Exam: Negative: Edema Psych Exam: Positive: Mood NL, Oriented x 3 A-FIB/CHADSVASC A-FIB History Current/History of A-Fib/PAF?: No Assessment /Plan Assessment 08/02: Clinically improving, on PO steroids, anticipate that she may be dischargeable with a steroid taper tomorrow. -- CDT Problems (1) COPD exacerbation Status: Acute Discussed With: Patient Problem Specific Plan: Monitor Clinically Problem Text: 08/02/18: Patient improving. I will transition her from Solumedrol 60 mg IV q 8 hours to po Prednisone 60 mg po bid. If patient continues to do well we can d/c her tomorrow 07/31 Cont with nebs, O2, Solumedrol 80 Q8H. 07/30 I reviewed the natural history of COPD exacerbations with her. I set the stage that she will not likely be ready for discharge until the end of the week. At this point I think she is on a reasonable regimen. The only thing I'll change is stopping the azithromycin, since I see no real evidence of a bacterial infection. I have ordered pro-calcitonin level to help clarify this. (2) Asthma Status: Acute Discussed With: Patient Problem Specific Plan: Monitor Clinically Problem Text: She has a known history of reactive airway disease. She reports that she has recently needed her home nebulized albuterol more than usual. I explained to her albuterol transiently lowers potassium levels; I strongly suspect this is the etiology of her lower extremity cramps. I will add on low- dose potassium supplementation to see if it mitigate this without making her hyperkalemic. Additionally I'll start Lidoderm patches his these have seemed to help in the past. (3) Seasonal allergies Status: Chronic Problem Text: Continue current regimen including Zyrtec. (4) GERD (gastroesophageal reflux disease) Status: Chronic Problem Specific Plan: Monitor Clinically Problem Text: Continue current dose of PPI. We will change this to IV in order to avoid the yellow dye in the tablets that we have as she has an allergy to yellow dye. Plan/VTE VTE Prophylaxis Ordered?: Yes (subcutaneous heparin) VS, I&O, 24H, Fishbone Vital Signs/I&O Vital Signs Date Time Temp Pulse Resp B/P (MAP) Pulse Ox O2 Delivery O2 Flow Rate FiO2 08/02/18 06:00 97.4 80 18 116/66 (83) 91 08/01/18 22:00 2.0 07/30/18 09:21 Nasal Cannula I&O- Last 24 Hours up to 6 AM 08/02/18 06:00 Intake Total 1770 ml Output Total 0 ml Balance 1770 ml Laboratory Data Microbiology Microbiology 07/30/18 Blood Culture - Preliminary, Resulted No Growth after 72 hours. All specime... 07/30/18 Blood Culture - Preliminary, Resulted No Growth after 72 hours. All specime... WAYNE SHRESTHA August 02, 2018 11:15 BHAVIK HERNÁNDEZ DO August 03, 2018 00:52
[2018-08-02 11:35] LABS: BASO % 0.1 % (0.0-1.0); HEMATOCRIT 48.4 % (36.0-47.0); HEMOGLOBIN 15.7 g/dl (12.0-15.5); LYMPH # 0.9 10^3/uL (1.5-4.5); LYMPH % 8.6 % (24.0-44.0); MEAN CORPUSCULAR HEMOGLOBIN 29.7 pg (27.0-33.0); MEAN CORPUSCULAR HGB CONC 32.4 g/dl (32.0-36.5); MEAN CORPUSCULAR VOLUME 91.5 fl (80.0-96.0); MONO # 0.7 10^3/uL (0.0-0.8); MONO % 6.7 % (0.0-5.0); NEUTROPHILS # 9.2 10^3/uL (1.8-7.7); NEUTROPHILS % 83.7 % (36.0-66.0); PLATELET COUNT, AUTOMATED 325 10^3/uL (150-450); RED BLOOD COUNT 5.29 10^6/uL (4.00-5.40)
[2018-08-02 11:59] LABS: BLOOD UREA NITROGEN 20 MG/DL (7-18); CALCIUM LEVEL 8.7 MG/DL (8.8-10.2); CARBON DIOXIDE LEVEL 33 MEQ/L (21-32); CHLORIDE LEVEL 106 MEQ/L (98-107); CREATININE FOR GFR 0.95 MG/DL (0.55-1.30); GLOMERULAR FILTRATION RATE > 60.0 (>45); GLUCOSE, FASTING 97 MG/DL (70-100); POTASSIUM SERUM 4.3 MEQ/L (3.5-5.1); SODIUM LEVEL 142 MEQ/L (136-145)
[2018-08-02 14:00] VITALS: BP 124/60
[2018-08-02] MEDS: ACETAMINOPHEN TAB 650MG DOSE (2X325MG) PO PRN (14:49)
[2018-08-02] MEDS ORDERED: SODIUM CHLORIDE 0.9% NASAL GEL 15GM (AYR) PRN (18:15)
[2018-08-02] MEDS: CLOPIDOGREL 75 MG TAB PO SCH (20:26)
[2018-08-02] MEDS: CETIRIZINE (ZyrTEC) 10 MG TAB PO SCH (20:26)
[2018-08-02] MEDS: predniSONE 20 MG TAB PO SCH (20:26)
[2018-08-02] MEDS: LIDOCAINE 5% (LIDODERM) PATCH TD PRN (20:37)
[2018-08-02] MEDS: **NOTE PATIENT COMMENT** MISC XX SCH (21:00)
[2018-08-02 22:00] VITALS: BP 131/64
[2018-08-03] MEDS: HEPARIN SOD (PORCINE) 5000 UNITS/ML VIAL SC SCH ×2 (00:15→08:19)
[2018-08-03] MEDS: IPRATROPIUM 0.5MG/ALBUTEROL 2.5MG INH SOL UD 3ML (DUONEB)(J7620) NEB SCH ×2 (02:50→07:58)
[2018-08-03 06:00] VITALS: BP 131/64
[2018-08-03] MEDS: POTASSIUM CHLORIDE 10 MEQ SR TABLET PO SCH (08:18)
[2018-08-03] MEDS: predniSONE 20 MG TAB PO SCH (08:18)
[2018-08-03] MEDS: PANTOPRAZOLE 40MG INJ (PROTONIX) (C9113) IV SCH (08:19)
[2018-08-03] MEDS: NICOTINE 14 MG/24 HR TRANSDERMAL TD SCH (08:19)
[2018-08-03] MEDS ORDERED: PRED20TA PO (10:52)
[2018-08-03] MEDS ORDERED: IPRA0.00 NEB (10:52)
--- NOTE | 2018-08-03 13:33 | DS.PDOC ---
Discharge Summary General Date of Admission Jul 30, 2018 at 05:04 Date of Discharge 08/03/18 Primary Care Physician: BHAVIK HERNÁNDEZ DO Attending Physician: BHAVIK HERNÁNDEZ DO Discharge Summary PROCEDURES PERFORMED DURING STAY: [None]. ADMITTING DIAGNOSES: 1. COPD exacerbation 2. Asthma 3. Allergies 4. GERD COMPLICATIONS/CHIEF COMPLAINT: Copd Exacerbation. HISTORY OF PRESENT ILLNESS: A 63-year-old female with history of chronic obstructive pulmonary disease (COPD) was brought to emergency department complaining of worsening shortness of breath, cough, whitish sputum for 2 days. No specific aggravating or relieving factor. [facility] was found with vitals of temperature 98.6, heart rate 102, respiratory rate 20, blood pressure 118/66, saturating 85% on room air improved with 4 liters of supplemental oxygen to 94%. A chest x-ray did not show any acute pathology. Patient was given intravenous (IV) Decadron, three DuoNebs without any relief. Patient was admitted for further management HOSPITAL COURSE: (1) COPD exacerbation: Patient was started on IV Solu-Medrol, oral azithromycin, DuoNebs, supplemental oxygen. Azithromycin was discontinued on day two. She progressed well throughout her hospital course. She was d/c on home O2 and a taper dose or prednisone. She was maintained on her home nebs and discharged wi DuoNeb. (2) Asthma: She has a known history of reactive airway disease. Patient was treated with oral K+ d/t potential of albuterol causing transiently lowers potassium levels. She was also started Lidoderm patches for leg pain as it seemed to help her symptoms in the past. (3) Seasonal allergies: Maintained home allergy medications. (4) GERD (gastroesophageal reflux disease): Maintained on PPI. DISCHARGE MEDICATIONS: Please see below. ALLERGIES: Please see below. PHYSICAL EXAMINATION ON DISCHARGE: VITAL SIGNS: Please see below. GENERAL: AOx3, NAD HEENT: unremarkable NECK: soft, no lymphadenopathy CARDIOVASCULAR EXAMINATION:RRR RESPIRATORY EXAMINATION: CTA, no wheezing ABDOMINAL EXAMINATION: soft, non-tender, nondistended EXTREMITIES: no edema LABORATORY DATA: Please see below. IMAGING: Chest -Xary 07/30: The lungs are clear. The heart is normal in size. The pulmonary vasculature is normal in appearance. Impression: No acute disease. PROGNOSIS: Good ACTIVITY: As tolerated DIET: Regular DISCHARGE PLAN: Home DISCHARGE INSTRUCTIONS: 1. F/U with PCP in one week DISCHARGE CONDITION: Stable Vital Signs/I&Os Vital Signs Date Time Temp Pulse Resp B/P (MAP) Pulse Ox O2 Delivery O2 Flow Rate FiO2 08/03/18 06:00 97.4 99 20 131/64 (86) 08/02/18 22:00 90 08/02/18 09:00 1.0 07/30/18 09:21 Nasal Cannula I&O- Last 24 Hours up to 6 AM 08/03/18 06:00 Intake Total 1950 ml Output Total 0 ml Balance 1950 ml Laboratory Data Labs 24H Laboratory Tests 2 08/02/18 11:21: Immature Granulocyte % (Auto) 0.9, White Blood Count 11.0H, Red Blood Count 5.29, Hemoglobin 15.7H, Hematocrit 48.4H, Mean Corpuscular Volume 91.5, Mean Corpuscular Hemoglobin 29.7, Mean Corpuscular Hemoglobin Concent 32.4, Red Cell Distribution Width 14.5, Platelet Count 325, Neutrophils (%) (Auto) 83.7H, Lymphocytes (%) (Auto) 8.6L, Monocytes (%) (Auto) 6.7H, Eosinophils (%) (Auto) 0.0, Basophils (%) (Auto) 0.1, Neutrophils # (Auto) 9.2H, Lymphocytes # (Auto) 0.9L, Monocytes # (Auto) 0.7, Eosinophils # (Auto) 0.0, Basophils # (Auto) 0.0, Nucleated Red Blood Cells % (auto) 0.0, Anion Gap 3L, Glomerular Filtration Rate > 60.0, Blood Urea Nitrogen 20H, Creatinine 0.95#, Sodium Level 142, Potassium Level 4.3, Chloride Level 106, Carbon Dioxide Level 33H, Calcium Level 8.7L CBC/BMP Laboratory Tests 08/02/18 11:21 Red Blood Count 5.29, Mean Corpuscular Volume 91.5, Mean Corpuscular Hemoglobin 29.7, Mean Corpuscular Hemoglobin Concent 32.4, Red Cell Distribution Width 14.5, Neutrophils (%) (Auto) 83.7 H, Lymphocytes (%) (Auto) 8.6 L, Monocytes (%) (Auto) 6.7 H, Eosinophils (%) (Auto) 0.0, Basophils (%) (Auto) 0.1, Neutrophils # (Auto) 9.2 H, Lymphocytes # (Auto) 0.9 L, Monocytes # (Auto) 0.7, Eosinophils # (Auto) 0.0, Basophils # (Auto) 0.0, Calcium Level 8.7 L Microbiology Microbiology 07/30/18 Blood Culture - Preliminary, Resulted No Growth after 72 hours. All specime... 07/30/18 Blood Culture - Preliminary, Resulted No Growth after 72 hours. All specime... Discharge Medications Scheduled Amitriptyline HCl (Amitriptyline HCl) 10 Mg Tab, 20 MG PO QHS, (Reported) Cetirizine HCl (Cetirizine HCl) 10 Mg Tab, 10 MG PO QHS, (Reported) Clopidogrel Bisulfate (Plavix) 75 Mg Tab, 75 MG PO QHS, (Reported) Dexlansoprazole (Dexilant) 60 Mg Cap, 60 MG PO DAILY, (Reported) Ipratropium/Albuterol Sulfate (Iprat-Albut 0.5-3(2.5) mg/3 ml) 3 Ml Ampul.neb, 3 ML NEB RQ6H Prednisone (Prednisone) 20 Mg Tablet, 60 MG PO Q12H Taper 60 mg i po bid x 3 days, 40 mg po bid x 3 days, 20 mg po bid x 3 days, 10mg po bid x 3 days, 10mg i po qday x 3 days Scheduled PRN Acetaminophen (Acetaminophen) 500 Mg Tablet, 500 MG PO Q4H PRN for PAIN / FEVER, (Reported) Albuterol Sulf (Albuterol Sulfate) 2.5 Mg/3 Ml Nebu, 2.5 MG INH Q4H PRN for SHORTNESS OF BREATH, (Reported) Albuterol Sulfate (Ventolin Hfa) 18 Gm Hfa.aer.ad, 2 PUFF INH Q4H PRN for wheezing, (Reported) Lidocaine (Lidocare) 4% Adh..patch, 1 PATCH TOP QHS PRN for LEG CRAMPS, (Reported) APPLIES TO LEGS Allergies Coded Allergies: clindamycin (Verified Allergy, Severe, THROAT CLOSING, 07/30/18) codeine (Verified Allergy, Severe, COMA, 07/30/18) yellow dye (Verified Allergy, Severe, FACIAL AND THROAT SWELLING, 07/30/18) Aminoglycosides (Verified Allergy, Mild, HIVES AND SWELLING, 07/30/18) cyclobenzaprine (Verified Allergy, Mild, HIVES AND SOB, 07/30/18) hydrocortisone (Verified Allergy, Mild, HIVES AND SWELLING, 07/30/18) neomycin (Verified Allergy, Mild, HIVES AND SWELLING, 07/30/18) polymyxin B (Verified Allergy, Mild, HIVES AND SWELLING, 07/30/18) Cephalosporins (Verified Allergy, Unknown, 07/30/18) Penicillins (Verified Allergy, Unknown, 07/30/18) HIVES AND SWELLING Sulfa (Sulfonamide Antibiotics) (Verified Allergy, Unknown, 07/30/18) HIVES AND SWELLING erythromycin base (Verified Allergy, Unknown, 07/30/18) HIVES AND SHORTNESS OF BREATH morphine (Verified Allergy, Unknown, 07/30/18) tetracycline (Verified Allergy, Unknown, 07/30/18) aspirin (Verified Adverse Reaction, Unknown, UPSET STOMACHE, 07/30/18) WAYNE SHRESTHA AIR HOLE DRILLER August 03, 2018 10:53
== END 2018-08-03 14:00 | disposition home or self-care (01) | DRG 192 ==
LOC: M ED 03:26 → EDBD 03:26 → M ED INP 05:04 → M MSPAV 10:01
PROVIDERS: ADMIT Internal Medicine; ATTEND Family Medicine
DX: J44.1 Chronic obstructive pulmonary disease with (acute) exacerbation (principal); K21.9 Gastro-esophageal reflux disease without esophagitis; J45.909 Unspecified asthma, uncomplicated; F17.200 Nicotine dependence, unspecified, uncomplicated; E78.5 Hyperlipidemia, unspecified; Z86.73 Personal history of transient ischemic attack (TIA), and cerebral infarction without residual deficits; Z88.0 Allergy status to penicillin; Z88.1 Allergy status to other antibiotic agents; Z88.5 Allergy status to narcotic agent; Z88.2 Allergy status to sulfonamides; Z79.899 Other long term (current) drug therapy

== ENCOUNTER 2018-08-04 23:45 | Emergency (ER) | payer MEDICARE, MEDICAID ==
[~2018-08-04] VITALS: Ht 170.2 cm; Wt 69.1 kg
[~2018-08-04 23:45] MED LIST changes: +ACET-683 PO; +IPRA0.00 NEB; +LIDO4PAD TOP; +PRED20TA PO; +VENTAER INH
[2018-08-05 01:15] LABS: BASO % 0.2 % (0.0-1.0); HEMATOCRIT 45.8 % (36.0-47.0); HEMOGLOBIN 15.2 g/dl (12.0-15.5); LYMPH # 1.3 10^3/uL (1.5-4.5); LYMPH % 9.1 % (24.0-44.0); MEAN CORPUSCULAR HEMOGLOBIN 29.7 pg (27.0-33.0); MEAN CORPUSCULAR HGB CONC 33.2 g/dl (32.0-36.5); MEAN CORPUSCULAR VOLUME 89.5 fl (80.0-96.0); MONO # 1.2 10^3/uL (0.0-0.8); MONO % 8.2 % (0.0-5.0); NEUTROPHILS # 11.6 10^3/uL (1.8-7.7); NEUTROPHILS % 81.3 % (36.0-66.0); PLATELET COUNT, AUTOMATED 302 10^3/uL (150-450); RED BLOOD COUNT 5.12 10^6/uL (4.00-5.40); WHITE BLOOD COUNT 14.2 10^3/uL (4.0-10.0)
[2018-08-05 01:48] LABS: BLOOD UREA NITROGEN 32 MG/DL (7-18); CALCIUM LEVEL 8.8 MG/DL (8.8-10.2); CARBON DIOXIDE LEVEL 28 MEQ/L (21-32); CHLORIDE LEVEL 107 MEQ/L (98-107); CPK CREATINE PHOSPHOKINASE 71 U/L (26-192); GLOMERULAR FILTRATION RATE > 60.0 (>45); GLUCOSE, FASTING 125 MG/DL (70-100); MB/CK RELATIVE INDEX 4.37 (< OR =4); POTASSIUM SERUM 4.5 MEQ/L (3.5-5.1); SODIUM LEVEL 140 MEQ/L (136-145); TROPONIN I < 0.02 NG/ML (< 0.10)
[2018-08-05 05:55] LABS: CPK CREATINE PHOSPHOKINASE 86 U/L (26-192); MB/CK RELATIVE INDEX 3.37 (< OR =4); TROPONIN I < 0.02 NG/ML (< 0.10)
[2018-08-05 07:20] VITALS: BP 127/77
--- NOTE | 2018-08-06 06:31 | REP ---
CHEST, TWO VIEWS: Two views of the chest are performed and compared to a prior study of 07/30/2018. There is blurring of the left hemidiaphragm which may represent some mild atelectasis or infiltration. Right lung is clear. Heart is normal in size. There is calcification of the thoracic aorta. The mediastinal silhouette is unchanged. There are degenerative changes of the spine. IMPRESSION: Possible mild atelectasis or infiltrate along the left diaphragm. Electronically Signed by Harvey Phillips MD 08/06/2018 11:24 A
--- NOTE | 2018-08-06 20:55 | ECGEPIP ---
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
--- NOTE | 2018-08-06 20:58 | ECGEPIP ---
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
--- NOTE | 2018-08-07 15:02 | ED PDOC ---
Post-Departure Follow-Up dr ursula aguilar faxed formal report of cxr for fu Hunter Hernandez MD August 07, 2018 15:02
== END 2018-08-05 07:15 | disposition home or self-care (01) ==
LOC: EDBD 23:45 → M ED 23:45
DX: R07.89 Other chest pain (principal); I25.10 Atherosclerotic heart disease of native coronary artery without angina pectoris; E78.5 Hyperlipidemia, unspecified

== ENCOUNTER → 2018-08-23 | Outpatient (CLI) | payer MEDICARE, MEDICAID ==
--- NOTE | 2018-08-23 18:14 | REP ---
Clinical: Left shoulder pain. Technique: Internal rotation, external rotation, and Y view of the left shoulder. Findings: Age-related osteopenia. Subtle cortical irregularity and spurring at the acromioclavicular joint is appreciated. Glenohumeral joint appears relatively intact and normal for age. Subacromial space is normal. No acute fracture or dislocation. No periarticular calcifications or loose bodies identified. Impression: Age-related osteopenia and mild arthritic degenerative change at the acromioclavicular joint Electronically Signed by Jose Gonzalez MD 08/23/2018 06:06 P
== END ==
LOC: M ADAMS 17:55
PROVIDERS: ATTEND Family Medicine
DX: M19.012 Primary osteoarthritis, left shoulder (principal); M85.812 Other specified disorders of bone density and structure, left shoulder; M25.512 Pain in left shoulder
CPT/HCPCS: 73030; G0463

== ENCOUNTER → 2018-08-30 | Outpatient (CLI) | payer MEDICARE, MEDICAID ==
--- NOTE | 2018-08-30 15:54 | REP ---
Clinical: Left neck mass. Technique: Real time alex scale and color ultrasound examination using linear high frequency transducer. Findings: Directed ultrasound examination of the left supraclavicular region at the site of palpable mass demonstrates 3.8 x 1.0 x 6.7 cm avascular isoechoic lesion in the subcutaneous tissue possibly representing lipoma. Impression: Avascular lesion likely representing lipoma. Electronically Signed by Jose Gonzalez MD 08/30/2018 03:45 P
== END ==
LOC: M RAD 14:56
PROVIDERS: ATTEND Family Medicine
DX: R22.1 Localized swelling, mass and lump, neck (principal)

== ENCOUNTER 2019-01-09 10:09 | Emergency (ER) | payer MEDICARE, MEDICAID ==
[~2019-01-09] VITALS: Ht 170.2 cm; Wt 69.5 kg
[2019-01-09 10:10] VITALS: BP 117/76
== END 2019-01-09 10:53 | disposition home or self-care (01) ==
LOC: M ED 10:09
DX: S29.012A Strain of muscle and tendon of back wall of thorax, initial encounter (principal); Y93.E5 Activity, floor mopping and cleaning; X50.0XXA Overexertion from strenuous movement or load, initial encounter; F17.200 Nicotine dependence, unspecified, uncomplicated; Z79.51 Long term (current) use of inhaled steroids; Z79.899 Other long term (current) drug therapy; Z88.0 Allergy status to penicillin; Z88.1 Allergy status to other antibiotic agents; Z88.2 Allergy status to sulfonamides; Z88.5 Allergy status to narcotic agent; Z88.6 Allergy status to analgesic agent; Z88.8 Allergy status to other drugs, medicaments and biological substances

== ENCOUNTER → 2019-01-25 | Outpatient (CLI) | payer MEDICARE, MEDICAID ==
[~2019-01-25] MED LIST changes: -AZIT500T2 PO; +AZIT500T5 PO
--- NOTE | 2019-01-26 13:12 | REP ---
Clinical: Chronic obstructive pulmonary disease with acute exacerbation. Technique: PA and lateral. Comparison: 08/05/2018. Findings: Mediastinum and cardiac silhouette are normal. Lung garcia demonstrate chronic changes consistent with a history of COPD. No obvious focal consolidation, effusion, or pneumothorax. Skeletal structures intact. Impression: Chronic-appearing changes consistent with COPD. No obvious acute consolidation or effusion. Electronically Signed by Jose Gonzalez MD 01/26/2019 01:04 P
== END ==
LOC: M ADAMS 17:14
PROVIDERS: ATTEND Physician Assistant
DX: J44.1 Chronic obstructive pulmonary disease with (acute) exacerbation (principal)

== ENCOUNTER → 2019-04-18 | Outpatient (REF) | payer MEDICARE, MEDICAID ==
[2019-04-18 19:26] LABS: BASO % 0.5 % (0.0-1.0); EOS # 0.5 10^3/uL (0.0-0.5); EOS % 5.8 % (0.0-3.0); HEMATOCRIT 52.1 % (36.0-47.0); HEMOGLOBIN 16.1 g/dl (12.0-15.5); LYMPH # 3.2 10^3/uL (1.5-5.0); LYMPH % 37.4 % (24.0-44.0); MEAN CORPUSCULAR HGB CONC 30.9 g/dl (32.0-36.5); MEAN CORPUSCULAR VOLUME 93.7 fl (80.0-96.0); MONO # 0.6 10^3/uL (0.0-0.8); MONO % 7.6 % (0.0-5.0); NEUTROPHILS # 4.1 10^3/uL (1.5-8.5); NEUTROPHILS % 48.6 % (36.0-66.0); PLATELET COUNT, AUTOMATED 331 10^3/uL (150-450); RED BLOOD COUNT 5.56 10^6/uL (4.00-5.40); WHITE BLOOD COUNT 8.5 10^3/uL (4.0-10.0)
[2019-04-18 19:54] LABS: ALBUMIN 4.1 GM/DL (3.2-5.2); ALT/SGPT 28 U/L (12-78); BILIRUBIN,TOTAL 0.4 MG/DL (0.2-1.0); BLOOD UREA NITROGEN 12 MG/DL (7-18); CALCIUM LEVEL 9.6 MG/DL (8.8-10.2); CARBON DIOXIDE LEVEL 29 MEQ/L (21-32); CHLORIDE LEVEL 106 MEQ/L (98-107); CPK CREATINE PHOSPHOKINASE 749 U/L (26-192); CREATININE FOR GFR 0.75 MG/DL (0.55-1.30); GLOMERULAR FILTRATION RATE > 60.0 (>45); GLUCOSE, FASTING 104 MG/DL (70-100); POTASSIUM SERUM 4.7 MEQ/L (3.5-5.1); SODIUM LEVEL 143 MEQ/L (136-145); TOTAL PROTEIN 7.6 GM/DL (6.4-8.2)
== END ==
LOC: M SFHCADAM 18:00
PROVIDERS: ATTEND Family Medicine
DX: J01.10 Acute frontal sinusitis, unspecified (principal); M79.10 Myalgia, unspecified site; J44.9 Chronic obstructive pulmonary disease, unspecified
CPT/HCPCS: 80053; 82550; 85025; G0463

== ENCOUNTER → 2019-05-06 | Outpatient (REF) | payer MEDICARE, MEDICAID | LOC: M LAB REF 15:56 | PROVIDERS: ATTEND Physician Assistant | DX: J44.0 Chronic obstructive pulmonary disease with (acute) lower respiratory infection (principal) ==

== ENCOUNTER 2019-06-30 12:26 | Emergency (ER) | payer MEDICARE, MEDICAID ==
[2019-06-30] MEDS ORDERED: COMBIVENT RESPIMAT 100-20MCG INHALER 4GM INH SCH (12:45)
[2019-06-30 13:02] LABS: BASO % 0.1 % (0.0-1.0); EOS % 0.2 % (0.0-3.0); HEMATOCRIT 48.8 % (36.0-47.0); HEMOGLOBIN 15.5 g/dl (12.0-15.5); LYMPH # 1.3 10^3/uL (1.5-5.0); LYMPH % 14.1 % (24.0-44.0); MEAN CORPUSCULAR HEMOGLOBIN 28.9 pg (27.0-33.0); MEAN CORPUSCULAR HGB CONC 31.8 g/dl (32.0-36.5); MEAN CORPUSCULAR VOLUME 90.9 fl (80.0-96.0); MONO # 0.5 10^3/uL (0.0-0.8); MONO % 5.6 % (0.0-5.0); NEUTROPHILS # 7.5 10^3/uL (1.5-8.5); NEUTROPHILS % 79.5 % (36.0-66.0); PLATELET COUNT, AUTOMATED 311 10^3/uL (150-450); RED BLOOD COUNT 5.37 10^6/uL (4.00-5.40); WHITE BLOOD COUNT 9.4 10^3/uL (4.0-10.0)
[2019-06-30 13:12] LABS: ABG BASE EXCESS 3.9 (-2.0-2.0); ABG HCO3 29.9 MEQ/L (22.0-26.0); ABG O2 SATURATION 94.1 % (95.0-99.0); ABG PARTIAL PRESSURE CO2 49.9 mmHg (35.0-45.0); ABG PARTIAL PRESSURE O2 72.7 mmHg (75.0-100.0); ABG STANDARD HCO3 27.9 MEQ/L (22.0-26.0); ABG TOTAL CO2 31.5 MEQ/L (23.0-31.0); ABG pH (ARTERIAL) 7.396 UNITS (7.350-7.450)
[2019-06-30 13:26] LABS: BLOOD UREA NITROGEN 19 MG/DL (7-18); CARBON DIOXIDE LEVEL 32 MEQ/L (21-32); CHLORIDE LEVEL 108 MEQ/L (98-107); CK-MB VALUE MASS 3.1 NG/ML (<3.6); CPK CREATINE PHOSPHOKINASE 90 U/L (26-192); CREATININE FOR GFR 0.77 MG/DL (0.55-1.30); GLOMERULAR FILTRATION RATE > 60.0 (>45); GLUCOSE, FASTING 86 MG/DL (70-100); MB/CK RELATIVE INDEX 3.44 (< OR =4); NT-PRO BNP 86 PG/ML (<125); POTASSIUM SERUM 4.3 MEQ/L (3.5-5.1); SODIUM LEVEL 144 MEQ/L (136-145); TROPONIN I < 0.02 NG/ML (< 0.10)
[2019-06-30 13:42] LABS: MONO SCRN NEGATIVE (NEGATIVE)
--- NOTE | 2019-06-30 13:59 | REP ---
Clinical: Hypoxemia with history of COPD disease . Comparison: 01/25/2019 . Findings: The mediastinum and cardiac silhouette are stable and within normal limits for portable technique. The lung garcia demonstrate chronic-appearing stable changes without acute consolidation, effusion, or pneumothorax. Skeletal structures are intact. Impression: No acute cardiopulmonary process appreciated. Electronically Signed by Jose Gonzalez MD 06/30/2019 01:51 P
[2019-06-30] MEDS ORDERED: methylPREDNISolone INJ 125 MG/2 ML VIAL (J2930) IV ONE (14:45)
[2019-06-30] MEDS ORDERED: PRED20TA PO (14:52)
[2019-06-30] MEDS ORDERED: [UNRECOGNIZED DRUG - OTHER] ×2 (14:57→16:49)
[2019-06-30 15:07] VITALS: BP 149/69
--- NOTE | 2019-07-01 16:08 | ECGEPIP ---
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
== END 2019-06-30 15:08 | disposition home or self-care (01) ==
LOC: M ED 12:26
DX: J44.1 Chronic obstructive pulmonary disease with (acute) exacerbation (principal); B34.8 Other viral infections of unspecified site; J45.909 Unspecified asthma, uncomplicated; K21.9 Gastro-esophageal reflux disease without esophagitis; E78.5 Hyperlipidemia, unspecified; R91.1 Solitary pulmonary nodule; Z79.899 Other long term (current) drug therapy; Z79.01 Long term (current) use of anticoagulants; Z88.0 Allergy status to penicillin; Z88.1 Allergy status to other antibiotic agents; Z88.2 Allergy status to sulfonamides; Z88.5 Allergy status to narcotic agent; Z88.8 Allergy status to other drugs, medicaments and biological substances
CPT/HCPCS: 36415; 36600; 71045; 80048; 82550; 82553; 82803; 83880; 84484; 85025; 86308; 87486; 87581; 87633; 87798; 87880; 93005; 94640; 96374; 99284; J2930

== ENCOUNTER → 2019-10-03 | Outpatient (CLI) | payer MEDICARE, MEDICAID ==
[~2019-10-03] MED LIST changes: +[UNRECOGNIZED DRUG - OTHER]
--- NOTE | 2019-10-03 14:52 | REP ---
Clinical: Lung screening. History smoking. Comparison: 07/12/2017 Technique: Axial low-dose noncontrast images from the thoracic inlet to the upper abdomen using lung screening technique. Findings: The lung garcia are well-aerated. No consolidation, significant nodule or mass lesion is appreciated. No pleural effusion/reaction or pneumothorax. Tracheobronchial tree is patent. Mediastinum demonstrates mild atherosclerotic changes of the coronary arteries without cardiomegaly. Impression: Lung-RADS category I. No significant nodule or suspicious abnormality. Electronically Signed by Jose Gonzalez MD 10/03/2019 02:43 P
== END ==
LOC: M RAD 13:48
PROVIDERS: ATTEND Family Medicine
DX: Z12.2 Encounter for screening for malignant neoplasm of respiratory organs (principal)

== ENCOUNTER → 2019-10-05 | Outpatient (CLI) | payer MEDICARE, OTHER ==
[2019-10-05 16:38] LABS: BASO % 0.7 % (0.0-1.0); EOS # 0.2 10^3/uL (0.0-0.5); EOS % 3.9 % (0.0-3.0); HEMATOCRIT 47.3 % (36.0-47.0); LYMPH % 37.5 % (24.0-44.0); MEAN CORPUSCULAR HEMOGLOBIN 30.1 pg (27.0-33.0); MEAN CORPUSCULAR HGB CONC 31.7 g/dl (32.0-36.5); MONO # 0.4 10^3/uL (0.0-0.8); MONO % 8.1 % (0.0-5.0); NEUTROPHILS # 2.6 10^3/uL (1.5-8.5); NEUTROPHILS % 49.4 % (36.0-66.0); PLATELET COUNT, AUTOMATED 271 10^3/uL (150-450); RED BLOOD COUNT 4.98 10^6/uL (4.00-5.40); WHITE BLOOD COUNT 5.3 10^3/uL (4.0-10.0)
[2019-10-05 16:48] LABS: ALBUMIN 3.7 GM/DL (3.2-5.2); ALT/SGPT 30 U/L (12-78); BILIRUBIN,TOTAL 0.3 MG/DL (0.2-1.0); BLOOD UREA NITROGEN 17 MG/DL (7-18); CALCIUM LEVEL 9.3 MG/DL (8.8-10.2); CARBON DIOXIDE LEVEL 30 MEQ/L (21-32); CHLORIDE LEVEL 107 MEQ/L (98-107); CREATININE FOR GFR 0.73 MG/DL (0.55-1.30); GLOMERULAR FILTRATION RATE > 60.0 (>45); GLUCOSE, FASTING 81 MG/DL (70-100); IMMUNOGLOBULIN E 45.5 IU/ML (<100); IMMUNOGLOBULIN G 744 MG/DL (681-1648); IMMUNOGLOBULIN M 70.8 MG/DL (40-230); POTASSIUM SERUM 4.6 MEQ/L (3.5-5.1); SODIUM LEVEL 143 MEQ/L (136-145)
[2019-10-05 17:12] LABS: ERYTHROCYTE SEDIMENTATION RATE 7 mm/hr (0-30)
[2019-10-12 14:13] LABS: ANTI TETANUS ANTIBODY 1.51 IU/mL (<0.10); STREP PNEUMO TYPE 1 0.4 ug/mL (>1.3); STREP PNEUMO TYPE 12F <0.1 ug/mL (>1.3); STREP PNEUMO TYPE 14 0.7 ug/mL (>1.3); STREP PNEUMO TYPE 18C 0.4 ug/mL (>1.3); STREP PNEUMO TYPE 19A 2.1 ug/mL (>1.3); STREP PNEUMO TYPE 19F 0.5 ug/mL (>1.3); STREP PNEUMO TYPE 23F 0.1 ug/mL (>1.3); STREP PNEUMO TYPE 3 6.5 ug/mL (>1.3); STREP PNEUMO TYPE 4 <0.1 ug/mL (>1.3); STREP PNEUMO TYPE 6B 2.2 ug/mL (>1.3); STREP PNEUMO TYPE 7F <0.1 ug/mL (>1.3); STREP PNEUMO TYPE 8 0.3 ug/mL (>1.3); STREP PNEUMO TYPE 9N 0.1 ug/mL (>1.3); STREP PNEUMO TYPE 9V 0.3 ug/mL (>1.3)
== END ==
LOC: M LABDRWAD 09:14
PROVIDERS: ATTEND Allergy & Immunology Allergy
DX: D84.9 Immunodeficiency, unspecified (principal)

== ENCOUNTER → 2019-12-21 | Outpatient (REF) | payer MEDICARE ==
[~2019-12-21] MED LIST changes: -ASPI81TA85 PO; +ASPI81TA86 PO
[2019-12-27 17:07] LABS: STREP PNEUMO TYPE 12F 0.5 ug/mL (>1.3); STREP PNEUMO TYPE 14 12.5 ug/mL (>1.3); STREP PNEUMO TYPE 18C 15.9 ug/mL (>1.3); STREP PNEUMO TYPE 19A 12.4 ug/mL (>1.3); STREP PNEUMO TYPE 19F 2.9 ug/mL (>1.3); STREP PNEUMO TYPE 23F 2.3 ug/mL (>1.3); STREP PNEUMO TYPE 3 39.8 ug/mL (>1.3); STREP PNEUMO TYPE 4 0.7 ug/mL (>1.3); STREP PNEUMO TYPE 6B 24.3 ug/mL (>1.3); STREP PNEUMO TYPE 7F 0.7 ug/mL (>1.3); STREP PNEUMO TYPE 9N 5.8 ug/mL (>1.3); STREP PNEUMO TYPE 9V 9.5 ug/mL (>1.3)
== END ==
LOC: M LABDRWAD 12:36
PROVIDERS: ATTEND Allergy & Immunology Allergy
DX: D84.9 Immunodeficiency, unspecified (principal)

== ENCOUNTER 2020-04-15 01:58 | Emergency (ER) | payer MEDICARE, MEDICAID ==
[~2020-04-15] VITALS: Ht 170.2 cm; Wt 71.4 kg
[~2020-04-15 01:58] MED LIST changes: -AMIT25TA PO; +AMIT25TA17 PO
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
--- OUTSIDE RECORDS SUMMARY | 2020-04-15 02:03 | CCD | Continuity of Care Document ---
Author Author Ana HENLEY M.D. Organization Unknown Address [address] [place] [address] Phone [phone] Care Team Providers Care Accounts Receivable Coordinator Name Role Phone Naomei Branham DO AUTM Problems Active Problems Provider Date Ischemic stroke Britt Henley M.D. Onset: 04/19/2014 Transient cerebral ischemia Britt Henley M.D. Onset: 04/19 Migraine without aura Britt Henley M.D. Onset: 04/19/2014 Tension-type headache Britt Henley M.D. Onset: 04/19/2014 Insomnia Britt Henley M.D. Onset: 04/19/2014 Neck pain Britt Henley M.D. Onset: 04/19/2014 Chronic back pain Britt Henley M.D. Onset: 04/19/2014 Chronic tension-type headache Britt Henley M.D. Onset: Migraine without aura, not refractory Britt Henley M.D. On set: 03/19/2015 Carotid artery occlusion Britt Henley M.D. Onset: 03/19/20 15 Disorders of initiating and maintaining sleep Jeniffer Mckenzie Onset: 03/19/2015 History of cerebrovascular accident without residual deficit s Britt Henley M.D. Onset: 04/20/2016 Refractory migraine without aura Britt Henley M.D. Onset: 07/07/2016 Cervico-occipital neuralgia Britt Henley M.D. Onset: 01/16 Social History Type Date Description Comments Sex Unknown ETOH Use Denies alcohol use Tobacco Use Start: Unknown Patient has never smoked Recreational Drug Use Never Used Drugs Allergies, Adverse Reactions, Alerts Active Allergies Reaction Severity Comments Date Yellow Dye (non-tartrazine) 04/19/2014 Inactive Allergies NKDA 04/19/2014 Medications Active Medications SIG Qnty Indications Ordering Provide r Date Gabapentin 100mg Capsules 1 by mouth twice a day for 3 days, then 1 po qam and 2 po qhs 90soraya Henley M.D. 01/17/[address] Take One Capsule By Mouth Every Day 30soraya Henley M.D. 02/28/2018 Zyrtec Allergy 10mg Tablets take one tablet by mouth every day as needed for allergies 30wendy Henley M.D. 07/01/2017 Botox 200Unit Solution Rec inject 155 units intramuscularly into head,neck and shoulders for migraines every 3 months (discard unused portion after firs 1units G43.701 Anastasia Mckenzie 07/13/2016 Clopidogrel Bisulfate 75mg Tablets Take One Tablet By Mouth Every Day 30tashahana Henley M.D. 0 09/19/2015 Amitriptyline HCL 10mg Tablets Take Two Tablets By Mouth AT Bedtime 60wendy Henley M.D. Immunizations Description No Information Available Vital Signs Date Vital Result Comment 09/17/2014 8:59am BP Systolic 110 mmHg BP Diastolic 80 mmHg Heart Rate 74 /min Respiratory Rate 16 /min Height 67 inches 5'7" Weight 162.00 lb BMI (Body Mass Index) 25.4 kg/m2 [place] Body Weight 135 lb 04/19/2014 8:51am BP Systolic 125 mmHg BP Diastolic 80 mmHg Heart Rate 74 /min Respiratory Rate 16 /min Height 67 inches 5'7" Weight 162.00 lb BMI (Body Mass Index) 25.4 kg/m2 [place] Body Weight 135 lb Results Description No Information Available Procedures Date Code Description Status 11/23/2019 [address] [place] [facility] [place] ervated By Facial, Trigeminal, Cerv And Acces Completed Medical Devices Description No Information Available Encounters Type Date Location Provider Dx Diagnosis Office Visit 01/17/2020 11:45a [place] G43.719 Chronic migraine w/o aura, intractable, w/o stat migr G44.221 Chronic tension-type headach e, intractable F51.01 Primary insomnia Z86.73 Prsnl hx of TIA (TIA), and c ereb infrc w/o resid deficits I65.21 Occlusion and stenosis of ri ght carotid artery M54.81 Occipital neuralgia M54.2 Cervicalgia Assessments Date Code Description Provider 01/17/2020 G43.719 Chronic migraine wit hout aura, intractable, without status migrainosus Britt Henley M.D. 01/17/2020 G44.221 Chronic tension-type headache, i ntractable Britt Henley M.D. 01/17/2020 F51.01 Primary insomnia Gutierrez Mckenzie 01/17/2020 Z86.73 Personal history of transient is chemic attack (TIA), and cer Britt Henley M.D. 01/17/2020 I65.21 Occlusion and stenosis of right carotid artery Britt Henley M.D. 01/17/2020 M54.81 Occipital neuralgia Britt Henley M.D. 01/17/2020 M54.2 Cervicalgia Britt Henley M.D. 11/23/2019 G43.719 Chronic migraine wit hout aura, intractable, without status migrainosus Britt Henley M.D. Plan of Treatment No Information Available Functional Status Description No Information Available Mental Status Description No Information Available Referrals Description No Information Available
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
--- OUTSIDE RECORDS SUMMARY | 2020-04-15 02:03 | CCD ---
Author Author [employer] [facility] Organization [facility] [employer] ems Address Unknown Phone Unavailable Care Team Providers Care Lead Dental Assistant Name Role Phone Marjorie Bone Unavailable PROBLEMS Type Condition ICD9-CM Code [id number] Code Onset Dates Condition S tatus SNOMED Code Notes Problem History of CVA (cerebrovascular accident) V12.54 Active 321691395 Problem Lumbago 724.2 Active 573948737 Problem Chronic sinusitis 473.9 Active 26817138 Problem Tobacco abuse 305.1 Active 57114475 Problem COPD (chronic obstructive pulmonary disease) 496 Active 86783478 Problem Skin lesion 709.9 Active 25045321 Problem C. difficile colitis A04.7 Active 375182126 Problem Chronic obstructive pulmonary disease, unspecified COPD ty pe J44.9 Active 94404894 Problem Non-seasonal allergic rhinitis, unspecified trigger J30.89 Active 62993842 Problem GERD (gastroesophageal reflux disease) 530.81 A ctive 466816897 Problem Chronic sinusitis, unspecified location J32.9 Active 41299540 Problem Vitamin D insufficiency 268.9 Active 53717207 Problem Cigarette nicotine dependence without complication F17.210 Active 08658907 Problem Hyperlipidemia, unspecified hyperlipidemia type E7 8.5 Active 03766999 Problem Chronic obstructive pulmonary disease with (acute) exa cerbation J44.1 Active 9896729945107 Problem Cigarette nicotine dependence with other nicotin e-induced disorder F17.218 Active 23625643865041227 ALLERGIES Allergen (clinical drug ingredient) Drug/Non Drug Allergy do cumented on EMR Reaction Allergy Type Onset Date Status Sulfa (for allergy use only) Hives Drug Allergy Active tetracycline Tetracycline HCl([facility] Code:[address]-77) Hives Drug Allergy Active ipratropium Ipratropium [place]([facility] Code:[address]-61) trou ble breathing Drug Allergy Active aspirin Aspirin([facility] Code:[address]-16) stomach pain Drug Allergy Active Influenza Vac Recombinant COLMENARES Unknown Drug Allergy Active cephalexin Keflex([facility] Code:[address]-62) Hives Drug Allergy Active yellow dye Hives Non Drug Allergy Active montelukast Singulair([facility] Code:[address]-37) trouble breathing Drug Allergy Active fluticasone / salmeterol Advair Diskus([facility] Code:[address]-3 0) trouble breathing Drug Allergy Active strawberries Hives Non Drug Allergy Active Codeine Phosphate([facility] Code:[address]-54) coma Drug Allergy Active ENCOUNTERS from 1955 to 2020-02-16 Encounter Location Date Provider Diagnosis [facility] [address] [place] [address] Feb, Reg mercedez Bone Chronic obstructive pulmonary disease, unspecified COPD type J44.9 and Chronic sinusitis, unspecified location J32.9 IMMUNIZATIONS Vaccine Route Administration Date Status Pneumococcal [...] Education Language: Question Answer Notes Languages spoken: Russian Catholic: Question Answer Notes Catholic 03 Muslim Drug and Alcohol Question Answer Notes Total [...] FOR REFERRAL No Information VITAL SIGNS Weight 159.4 lbs Feb, Height 5'5 1/2" in Feb, BMI 26.12 kg/m2 Feb, Heart Rate 116 /min Feb, Respiratory Rate 18 /min Feb, Temperature 96.4 degrees Fahrenheit Feb, Oximetry 91 Feb, Blood pressure systolic 120 mm Hg Feb, Blood pressure diastolic 80 mm Hg Feb, MEDICATIONS Medication SIG (Take, Route, Frequency, Duration) [...] Information RESULTS No Results REASON FOR VISIT [phone]-facial swelling around nose from sinus infection dx last week MEDICAL (GENERAL) HISTORY Type Description Date Medical [...] Medical History Abnormal mammogram - followed in [facility] er q 6 months Medical History nicotine [...] No Information ASSESSMENTS Encounter Date Diagnosis Notes Feb, Chronic sinusitis, unspecified location (ICD-10 - J32.9) Feb, Chronic obstructive pulmonar y disease, unspecified COPD type (ICD- 10 - J44.9) PLAN OF TREATMENT Medication Medication Name Sig Start Date Stop Date PredniSONE 20 MG 2 tabs daily x 2 days then 1 tab daily x 2 days then 1/2 tab daily x 2 days Orally as directed for 6 days Feb, Next Appt Details prn Reason: Provider Name:Naomie Whitley, 2020-03-03 08:00:00 AM, [address], [place], [address], Insurance Providers Payer Name Payer Address Payer Phone Insured Name Patient Relati onship to Insured Coverage Start Date Coverage End Date [facility] [address] [facility] [id number] CINTIA HODGE MEDICAID [facility] [address] [facility] [address] CINTIA HODGE
--- OUTSIDE RECORDS SUMMARY | 2020-04-15 02:03 | CCD ---
Author Author [employer] Organization [employer] Address Unknown Phone Unavailable Care Team Providers Care Fish Net Stringer Name Role Phone Naomie Whitley Unavailable PROBLEMS Type Condition ICD9-CM Code [id number] Code Onset Dates Condition S tatus SNOMED Code Notes Problem History of CVA (cerebrovascular accident) V12.54 Active 441618891 Problem Lumbago 724.2 Active 851659562 Problem Chronic sinusitis 473.9 Active 94075445 Problem Tobacco abuse 305.1 Active 33751483 Problem COPD (chronic obstructive pulmonary disease) 496 Active 50548929 Problem Skin lesion 709.9 Active 12644767 Problem C. difficile colitis A04.7 Active 453631364 Problem Chronic obstructive pulmonary disease, unspecified COPD ty pe J44.9 Active 43632195 Problem Non-seasonal allergic rhinitis, unspecified trigger J30.89 Active 81417915 Problem GERD (gastroesophageal reflux disease) 530.81 A ctive 714793447 Problem Chronic sinusitis, unspecified location J32.9 Active 73850720 Problem Vitamin D insufficiency 268.9 Active 86112008 Problem Cigarette nicotine dependence without complication F17.210 Active 95327760 Problem Hyperlipidemia, unspecified hyperlipidemia type E7 8.5 Active 14247264 Problem Chronic obstructive pulmonary disease with (acute) exa cerbation J44.1 Active 7964412950218 Problem Cigarette nicotine dependence with other nicotin e-induced disorder F17.218 Active 26137646787806354 ALLERGIES Allergen (clinical drug ingredient) Drug/Non Drug Allergy do cumented on EMR Reaction Allergy Type Onset Date Status Sulfa (for allergy use only) Hives Drug Allergy Active tetracycline Tetracycline HCl([facility] Code:[address]-81) Hives Drug Allergy Active ipratropium Ipratropium [place]([facility] Code:[address]-64) trou ble breathing Drug Allergy Active aspirin Aspirin([facility] Code:[address]-23) stomach pain Drug Allergy Active Influenza Vac Recombinant COLMENARES Unknown Drug Allergy Active cephalexin Keflex([facility] Code:[address]-50) Hives Drug Allergy Active yellow dye Hives Non Drug Allergy Active montelukast Singulair([facility] Code:[address]-19) trouble breathing Drug Allergy Active fluticasone / salmeterol Advair Diskus([facility] Code:[address]-8 0) trouble breathing Drug Allergy Active strawberries Hives Non Drug Allergy Active Codeine Phosphate([facility] Code:[address]-32) coma Drug Allergy Active ENCOUNTERS from 1955 to 2020-03-05 Encounter Location Date Provider Diagnosis [facility] [address] [place] [address] Feb, Naomie Rufino-Tartell IMMUNIZATIONS Vaccine Route Administration [...] Education Language: Question Answer Notes Languages spoken: Chinese Yazdanism: Question Answer Notes Yazdanism 03 Confucianist Drug and Alcohol Question Answer Notes Total [...] Notes Start Da te End Date Status Claritin 10 MG 1 tablet Orally Once a day for 30 day(s) Active Plavix 75 MG 1 tablet Orally Once a day for 90 Active Nebulizer System All-In-One - as directed _Dx:J44.9 Daily for 30 days Dec, Active Amitriptyline HCl 10 mg 2 tablet at bedtime Orally Once a day Active Albuterol Sulfate (2.5 MG/3ML) 0.083% USE 1 VIAL IN NE BULIZER 4 TIMES DAILY - and as needed Active Tylenol 325 MG 1 tablet as needed Orally every 4 hrs Active Levofloxacin 500 MG 1 tablet Orally Once a day for 7 day(s) Feb, Active ProAir HFA 108 (90 Base) MCG/ACT as directed Inhalatio n four times daily as needed for 30 days Active PredniSONE 20 MG 2 tabs daily x 2 days then 1 tab daily x 2 days then 1/2 tab daily x 2 days Orally as directed for 6 days Feb, Active Dexilant 60 MG 1 capsule Orally Once a day for 30 Active PROCEDURES No Information RESULTS No Results REASON FOR VISIT needs [facility] MEDICAL (GENERAL) HISTORY Type Description Date Medical [...] Medical History Abnormal mammogram - followed in [facility] er q 6 months Medical History [...] Information ASSESSMENTS No Information PLAN OF TREATMENT No Information Insurance Providers Payer Name Payer Address Payer Phone Insured Name Patient Relati onship to Insured Coverage Start Date Coverage End Date MEDICAID [employer] [address] [facility] [id number] CINTIA HODGE [facility] [address] [facility] [id number] CINTIA HODGE self
--- OUTSIDE RECORDS SUMMARY | 2020-04-15 02:04 | CCD | Continuity of Care Document ---
Author Author Ana YANG Organization Unknown Address [address], [place] [address] Phone [phone] Care Team Providers Care Lan Administrator Name Role Phone Rufino-FabianWhitleynataly NGUYEN AUTM [phone] Marjorie Bone PA-C AUTM [phone] Problems Active Problems Provider Date Chronic obstructive lung disease Rian Yang M.D. O nset: 10/01/2019 Adverse effect of penicillins, initial encounter Rian mora M.D. Onset: 10/01/2019 Immunodeficiency disorder Rian Yang M.D. Onset: 0 10/01/2019 Chronic sinusitis Rian Yang M.D. Onset: 020 Allergic rhinitis due to animals Rian Yang M.D. O nset: 11/02/2019 Note: 3+ reaction to cat dander on intr adermal test. Completed 2019. Allergic rhinitis due to house dust mite Rian Yang M.D. Onset: 11/02/2019 Note: 2+ reaction to dust mites on intra dermal test. Completed 2019. Social History Type Date Description Comments Sex Unknown Tobacco Use Start: [birth year]/69 Light tobacco smoker (10 or fewe r cigarettes/day) 8 Cigarettes Per Day Smoking Status Reviewed: 02/04/20 Light tobacco smoker (10 or fewer cigarettes/day) 8 Cigarettes Per Day Allergies, Adverse Reactions, Alerts Active Allergies Reaction Severity Comments Date Sulfonamides 11/25/2018 Codeine Sulfate 11/25/2018 Penicillins 11/25/2018 Morphine 11/25/2018 Tetracyclines 11/25/2018 Yellow Dye Difficulty breathing, Facial swelling, Hives 10/01/2019 Polymyxin B Difficulty breathing, Facial swelling, Hives 10/01/2019 Medications Active Medications SIG Qnty Indications Ordering Provide r Date Symbicort 160-4.5mcg/Act Aerosol take 2 puffs by inhalation route twice per day 30.6gm J44.9 Rian Yang M.D. 02/04/2020 Flonase Allergy Relief 50mcg/Act Suspension 2 sprays each nostril every night 19.8ml J30.81 Rian Yang M.D. 11/02/2019 Amitriptyline HCL 10mg Tablets Take Two Tablets By Mouth AT Bedtime Unknown Dexilant 60mg Capsules DR Take One Capsule By Mouth Every Day Unknown Clopidogrel Bisulfate 75mg Tablets Take One Tablet By Mouth Every Day Unknown Albuterol Sulfate HFA 108(90Base) mcg/Act Aerosol Inhale One puff By Mouth Four Times A Day as Needed Unknown Acetaminophen 325mg Tablets Take 1-2 tablets prn Unknown Cetirizine HCL 10mg Tablets 1 tab by mouth every day as needed itching and sneezing Unknown Gabapentin 100mg Capsules Take 1 Capsule By Mouth Two Times A Day For 3 Days Then 1 Every Morning And 2 Caps AT Bedtime Unknown Immunizations Description No Information Available Vital Signs Date Vital Result Comment 02/04/2020 10:15am Weight 160.12 lb Height 67 inches 5'7" Heart Rate 94 /min Respiratory Rate 18 /min BP Systolic 111 mmHg BP Diastolic 76 mmHg BMI (Body Mass Index) 25.1 kg/m2 11/02/2019 10:36am Weight 150.00 lb Height 67 inches 5'7" Heart Rate 91 /min Respiratory Rate 20 /min BP Systolic 119 mmHg BP Diastolic 81 mmHg BMI (Body Mass Index) 23.5 kg/m2 Results Test Acquired Date Facility Test Result H/L Range Note Pneumococcal Antibody 14 Types (Beninese) 12/21/2019 [facility] Strep Pneumo Type 1 4.0 ug/mL Normal >1.3 Strep Pneumo Type 3 39.8 ug/mL Normal >1.3 Strep Pneumo Type 4 0.7 ug/mL Low >1.3 Strep Pneumo Type 8 3.0 ug/mL Normal >1.3 Strep Pneumo Type 9N 5.8 ug/mL Normal >1.3 Strep Pneumo Type 12F 0.5 ug/mL Low >1.3 Strep Pneumo Type 14 12.5 ug/mL Normal >1.3 Strep Pneumo Type 19F 2.9 ug/mL Normal >1.3 Strep Pneumo Type 23F 2.3 ug/mL Normal >1.3 Strep Pneumo Type 6B 24.3 ug/mL Normal >1.3 Strep Pneumo Type 7F 0.7 ug/mL Low >1.3 Strep Pneumo Type 18C 15.9 ug/mL Normal >1.3 Strep Pneumo Type 19A 12.4 ug/mL Normal >1.3 Strep Pneumo Type 9V 9.5 ug/mL Normal >1.3 1 CBC With Differential 10/05/2019 [facility] White Blood Count 5.3 10 Normal 4.0-10.0 Red Blood Count 4.98 10 Normal 4.00-5.40 Hemoglobin 15.0 g/dL Normal 12.0-15.5 Hematocrit 47.3 % High 36.0-47.0 Mean Corpuscular Volume 95.0 fl Normal 80.0-96.0 Mean Corpuscular Hemoglobin 30.1 pg Normal 27.0-33.0 Mean Corpuscular HGB Conc 31.7 g/dL Low 32.0-36.5 Red Cell Distribution Width 13.8 % Normal 11.5-14.5 Platelet Count, Automated 271 10 Normal 150-450 Neutrophils % 49.4 % Normal 36.0-66.0 Lymph % 37.5 % Normal 24.0-44.0 [place] % 8.1 % High 0.0-5.0 Eos % 3.9 % High 0.0-3.0 Baso % 0.7 % Normal 0.0-1.0 Immature Granulocyte % 0.4 % Normal 0-3.0 Nucleated Red Blood Cell % 0.0 % Normal 0-0 Neutrophils # 2.6 10 Normal 1.5-8.5 Lymph # 2.0 10 Normal 1.5-5.0 [place] # 0.4 10 Normal 0.0-0.8 Eos # 0.2 10 Normal 0.0-0.5 Baso # 0.0 10 Normal 0.0-0.2 Laboratory test finding 10/05/2019 [facility] Erythrocyte Sedimentation Rate 7 mm/hr Normal 0-30 Comprehensive Metabolic Profil 10/05/2019 [facility] Glucose, Fasting 81 mg/dL Normal 70-100 Blood Urea Nitrogen 17 mg/dL Normal 7-18 Creatinine For GFR 0.73 mg/dL Normal 0.55-1.30 Glomerular Filtration Rate > 60.0 Normal >45 2 Sodium Level 143 mEq/L Normal 136-145 Potassium Serum 4.6 mEq/L Normal 3.5-5.1 Chloride Level 107 mEq/L Normal 98-107 Carbon Dioxide Level 30 mEq/L Normal 21-32 Anion Gap 6 mEq/L Low 8-16 Calcium Level 9.3 mg/dL Normal 8.8-10.2 Ast/Sgot 23 U/L Normal 7-37 Alt/SGPT 30 U/L Normal 12-78 Alkaline Phosphatase 133 U/L High 45-117 Bilirubin,Total 0.3 mg/dL Normal 0.2-1.0 Total Protein 7.0 GM/DL Normal 6.4-8.2 Albumin 3.7 GM/DL Normal 3.2-5.2 Albumin/Globulin Ratio 1.1 Low 1.2-2.2 Immunoglobulin G,A,M 10/05/2019 [facility] Immunoglobulin A 172.0 mg/dL Normal 70-400 Immunoglobulin G 744 mg/dL Normal 681-1648 Immunoglobulin M 70.8 mg/dL Normal 40-230 Laboratory test finding 10/05/2019 [facility] Immunoglobulin E 45.5 IU/mL Normal <100 Anti Tetanus Antibody 1.51 IU/mL Normal <0.10 3 Rubella Immune Status IMMUNE Normal Immune 4 Pneumococcal Antibody 14 Types (Beninese) 10/05/2019 [facility] Strep Pneumo Type 1 0.4 ug/mL Low >1.3 Strep Pneumo Type 3 6.5 ug/mL Normal >1.3 Strep Pneumo Type 4 <0.1 ug/mL Low >1.3 Strep Pneumo Type 8 0.3 ug/mL Low >1.3 Strep Pneumo Type 9N 0.1 ug/mL Low >1.3 Strep Pneumo Type 12F <0.1 ug/mL Low >1.3 Strep Pneumo Type 14 0.7 ug/mL Low >1.3 Strep Pneumo Type 19F 0.5 ug/mL Low >1.3 Strep Pneumo Type 23F 0.1 ug/mL Low >1.3 Strep Pneumo Type 6B 2.2 ug/mL Normal >1.3 Strep Pneumo Type 7F <0.1 ug/mL Low >1.3 Strep Pneumo Type 18C 0.4 ug/mL Low >1.3 Strep Pneumo Type 19A 2.1 ug/mL Normal >1.3 Strep Pneumo Type 9V 0.3 ug/mL Low >1.3 5 1 *This test was developed and its performance characteristics determined by [facility]. It has not been cleared or approved by the U.S. Food and Drug Administration. Performed at: [facility], [facility] [id number] Fluid Designer: Jessica Nolan PhD, Phone: [phone] 2 Units are mL/min/1.73 m2 Chronic Kidney Disease Staging per NKF: Stage I & II GFR >=60 Normal to Mildly Decreased Stage III GFR 30-59 Moderately Decreased Stage IV GFR 15-29 Severely Decreased Stage V GFR <15 Very Little GFR Left ESRD GFR <15 on MAINTENANCE SHOP WELDER 3 Interpretation: Non-Protective <0.10 Protective >=0.10 Results for this test are for research purposes only by the assay's song and dance performer. The performance characteristics of this product have not been established. Results should not be used as a diagnostic procedure without confirmation of the diagnosis by another medically established diagnostic product or procedure. Performed at: [facility] [address] [facility] [address] [facility], [facility] [id number] Fluid Designer: Jessica Nolan PhD, Phone: [phone] Performed at: [address] [id number] Fluid Designer: Rickie Barker MD, Phone: [phone] 4 THE RUBELLA RESULT WAS OBTAI SANDRA WITH THE CENTAUR RUBELLA IGG ASSAY. IgG VALUES FROM ANOTHER MANUFACTURERS' METHOD MAY NOT BE USED INTERCHANGEABLY. MAGNITUDE OF LEVEL CANNOT BE CORRELATED TO AN ENDPOINT TITER. SUSCEPTIBLE 0.00-5.00 IU/ML EQUIVOCAL 5.01-9.99 IU/ML IMMUNE > 10.00 IU/ML 5 *This test was developed and its performance characteristics determined by [facility]. It has not been cleared or approved by the U.S. Food and Drug Administration. Procedures Date Code Description Status 02/04/2020 95679 Bronchodilation Resp onsiveness Spirometry Pre/Post Bronchodil Adm Completed 11/02/2019 69539 Allergy Tests Intrad ermal W/ Allergenic Extr Immediate Reaction Completed 11/02/2019 17659 Allergy Tests Percutaneous W/ Al lergenic Extracts Completed 10/01/2019 86917 Allergy Tests Intrad ermal W/ Allergenic Extr Immediate Reaction Completed 10/01/2019 74049 Allergy Tests Percutaneous W/ Al lergenic Extracts Completed Medical Devices Description No Information Available Encounters Type Date Location Provider Dx Diagnosis Office Visit 02/04/2020 10:15a Main Office Rian Yang M.D. J30.81 Allergic rhinitis due to animal (cat) (dog) hair and dander J30.89 Other allergic rhinitis J44.9 Chronic obstructive pulmonar y disease, unspecified Assessments Date Code Description Provider 02/04/2020 J30.81 Allergic rhinitis due to animals Rian Yang M.D. 02/04/2020 J30.89 Allergic rhinitis due to house d ust mite Rian Yang M.D. 02/04/2020 J44.9 Chronic obstructive pulmonary di sease, unspecified Rian Yang M.D. Plan of Treatment Future Appointment(s):* 08/04/2020 8:45 am - Rian Yang M.D. at Main Office 02/04/2020 - Rian Yang M.D.* J30.81 Allergic rhinitis due to animals * Recommendations:* Effective allergy avoidance measures in regards to allergy to pets were reviewed. I suggested that she should be more consistent with using Flonase Sensimist every night (skipping doses). The patient may use oral antihistamine when needed to suppress eye itching, itchy nose and sneezing. * J30.89 Allergic rhinitis due to house dust mite* Recommendations:* I reviewed effective allergy avoidance measures for dust mites. See recommendations above. * J44.9 Chronic obstructive pulmonary disease, unspecified* New Medication:* Symbicort 160-4.5 mcg/Act - take 2 puffs by inhalation route twice per day * Recommendations:* Sample of Symbicort was provided to her. Should report response to her primary care provider and to M1A1 Tank Crewman during consult. Should follow up with pulmonology as planned. * All * Follow up:* 6 months. Sooner if needed. Functional Status Description No Information Available Mental Status Description No Information Available Referrals Description No Information Available
--- OUTSIDE RECORDS SUMMARY | 2020-04-15 02:04 | CCD ---
Author Author [facility] Organization [facility] Address Unknown Phone Unavailable Care Team Providers Care Inside Sales Account Executive Name Role Phone Naomie Whitley Unavailable PROBLEMS Type Condition ICD9-CM Code VJJ37-ES Code Onset Dates Condition S tatus SNOMED Code Notes Problem Chronic sinusitis 473.9 Active 87056595 Problem History of CVA (cerebrovascular accident) V12.54 Active 223253945 Problem COPD (chronic obstructive pulmonary disease) 496 Active 04756525 Problem Lumbago 724.2 Active 853984967 Problem GERD (gastroesophageal reflux disease) 530.81 A ctive 053064084 Problem Skin lesion 709.9 Active 98196159 Problem C. difficile colitis A04.7 Active 139534985 Problem Cigarette nicotine dependence with other nicotin e-induced disorder F17.218 Active 69748390253712400 Problem Vitamin D insufficiency 268.9 Active 20104965 Problem Non-seasonal allergic rhinitis, unspecified trigger J30.89 Active 33941922 Problem Tobacco abuse 305.1 Active 40763676 Problem Chronic obstructive pulmonary disease, unspecified COPD ty pe J44.9 Active 35592480 Problem Cigarette nicotine dependence without complication F17.210 Active 35087326 Problem Hyperlipidemia, unspecified hyperlipidemia type E7 8.5 Active 53928649 Problem Chronic obstructive pulmonary disease with (acute) exa cerbation J44.1 Active 4851313627016 ALLERGIES Allergen (clinical drug ingredient) Drug/Non Drug Allergy do cumented on EMR Reaction Allergy Type Onset Date Status Sulfa (for allergy use only) Hives Drug Allergy Active tetracycline Tetracycline HCl([facility] Code:[address]-27) Hives Drug Allergy Active ipratropium Ipratropium [place]([facility] Code:[address]-74) trou ble breathing Drug Allergy Active aspirin Aspirin([facility] Code:[address]-27) stomach pain Drug Allergy Active Influenza Vac Recombinant COLMENARES Unknown Drug Allergy Active cephalexin Keflex([facility] Code:[address]-06) Hives Drug Allergy Active yellow dye Hives Non Drug Allergy Active montelukast Singulair([facility] Code:[address]-08) trouble breathing Drug Allergy Active fluticasone / salmeterol Advair Diskus([facility] Code:[address]-0 0) trouble breathing Drug Allergy Active strawberries Hives Non Drug Allergy Active Codeine Phosphate([facility] Code:[address]-57) coma Drug Allergy Active ENCOUNTERS from 1955 to 2020-02-02 Encounter Location Date Provider Diagnosis [address] [place] [address] 30 Jan Naomie Rufino-Tartell IMMUNIZATIONS Vaccine Route Administration Date [...] Education Language: Question Answer Notes Languages spoken: Armenian Synagogue: Question Answer Notes Synagogue 03 Zoroastrianism Drug and Alcohol Question Answer Notes Total [...] Daily fo r 30 days Dec, Active Claritin 10 MG 1 tablet Orally Once a day for 30 day(s) Active Tylenol 325 MG 1 tablet as needed Orally every 4 hrs Active Amitriptyline HCl 10 mg 2 tablet at bedtime Orally Once a day Active Plavix 75 MG 1 tablet Orally Once a day for 90 Active Albuterol Sulfate (2.5 MG/3ML) 0.083% USE 1 VIAL IN NE BULIZER 4 TIMES DAILY - and as needed Active PROCEDURES No Information RESULTS No Results REASON FOR VISIT Pulmonary Doctor MEDICAL (GENERAL) HISTORY Type Description Date Medical [...] Medical History Abnormal mammogram - followed in [facility] er q 6 months Medical [...] Information ASSESSMENTS No Information PLAN OF TREATMENT Next Appt Details Provider Name:Naomie Whitley, 2020-03-03 08:00:00 AM, [address], [place], [address], Insurance Providers Payer Name Payer Address Payer Phone Insured Name Patient Relati onship to Insured Coverage Start Date Coverage End Date [facility] [address] [facility] [id number] CINTIA HODGE [employer] MEDICAID [employer] [address] [facility] [id number] CINTIA HODGE self
--- OUTSIDE RECORDS SUMMARY | 2020-04-15 02:04 | CCD | Continuity of Care Document ---
Author Author Ana HENLEY M.D. Organization Unknown Address [address] [place] [address] Phone [phone] Care Team Providers Care Construction Laborer Name Role Phone Naomie Branham DO AUTM Problems Active Problems Provider [...] 1 po qam and 2 po qhs angela Henley M.D. 01/17/[address] 1 po qday 90soraya Henley M.D. 02/28/2018 Zyrtec Allergy 10mg Tablets take one tablet by mouth every day as needed for allergies 30tashahana Henley M.D. 07/01/2017 Botox 200Unit Solution Rec Inject 155 Units Intramuscularly Into Head,Neck And Shoulders For Migraines Every 3 Months (Discard Unused Portion After Firs 1units G43.701 Anastasia Mckenzie 07/13/2016 Clopidogrel Bisulfate 75mg Tablets Take One Tablet By Mouth Every Day 30tashahana Henley M.D. 0 09/19/2015 Amitriptyline HCL 10mg Tablets take two tablets by mouth at bedtime 60tashahana Henley M.D. Immunizations Description No Information Available Vital Signs Date Vital Result Comment 09/17/2014 8:59am BP Systolic 110 mmHg BP Diastolic 80 mmHg Heart Rate 74 /min Respiratory Rate 16 /min Height 67 inches 5'7" Weight 162.00 lb BMI (Body Mass Index) 25.4 kg/m2 [place] Body Weight 135 lb 04/19/2014 8:51am BP Systolic 125 mmHg BP Diastolic 80 mmHg Heart Rate 74 /min Respiratory Rate 16 /min Height 67 inches 5'7" Weight 162.00 lb BMI (Body Mass Index) 25.4 kg/m2 [place] Body Weight 135 lb Results Description No Information Available Procedures Date Code Description Status 11/23/2019 61417 [place] ervated By Facial, Trigeminal, Cerv And Acces Completed 08/23/2019 48622 [place] ervated By Facial, Trigeminal, Cerv And Acces Completed Medical Devices Description No Information Available Encounters Type Date Location Provider Dx Diagnosis Office Visit 01/17/2020 11:45a Main office - [place] Jeniffer Mckenzie G43.719 Chronic migraine w/o aura, intractable, w/o [...] intractable, without status migrainosus Britt Henley M.D. 08/23/2019 G43.719 Chronic migraine wit hout aura, intractable, without status migrainosus Britt Henley M.D. Plan of Treatment Future Appointment(s):* 02/22/2020 2:30 pm - Britt Henley M.D. at Main office - [place] Functional Status Description No Information Available Mental Status Description No Information Available Referrals Description No Information Available
--- OUTSIDE RECORDS SUMMARY | 2020-04-15 02:04 | CCD | Continuity of Care Document ---
Author Author Ana YANG Organization Unknown Address [address], [place] [address] Phone [phone] Care Team Providers Care Apprentice Electrician Name Role Phone Rufino-FabianWhitleynaatly NGUYEN AUTM Marjorie Bone PA-C AUTM [phone] Problems Active Problems Provider Date Chronic obstructive [...] SIG Qnty Indications Ordering Provide r Date Flonase Allergy Relief 50mcg/Act Suspension 2 sprays [...] Note Pneumococcal Antibody 14 Types (Beninese) 12/21/2019 [facility] Strep Pneumo Type 1 4.0 ug/mL Normal [...] Normal >1.3 1 CBC With Differential 10/05/2019 [facility] White Blood Count 5.3 10 Normal 4.0-10.0 [...] 36.0-66.0 Lymph % 37.5 % Normal 24.0-44.0 [place] % 8.1 % High 0.0-5.0 Eos % 3.9 % High 0.0-3.0 Baso % 0.7 % Normal 0.0-1.0 Immature Granulocyte % 0.4 % Normal 0-3.0 Nucleated Red Blood Cell % 0.0 % Normal 0-0 Neutrophils # 2.6 10 Normal 1.5-8.5 Lymph # 2.0 10 Normal 1.5-5.0 [place] # 0.4 10 Normal 0.0-0.8 Eos # 0.2 10 Normal 0.0-0.5 Baso # 0.0 10 Normal 0.0-0.2 Laboratory test finding 10/05/2019 [facility] Erythrocyte Sedimentation Rate 7 mm/hr Normal 0-30 Comprehensive Metabolic Profil 10/05/2019 [facility] Glucose, Fasting 81 mg/dL Normal 70-100 Blood [...] Ratio 1.1 Low 1.2-2.2 Immunoglobulin G,A,M 10/05/2019 [facility] Immunoglobulin A 172.0 mg/dL Normal 70-400 Immunoglobulin G 744 mg/dL Normal 681-1648 Immunoglobulin M 70.8 mg/dL Normal 40-230 Laboratory test finding 10/05/2019 [facility] Immunoglobulin E 45.5 IU/mL Normal <100 Anti Tetanus Antibody 1.51 IU/mL Normal <0.10 3 Rubella Immune Status IMMUNE Normal Immune 4 Pneumococcal Antibody 14 Types (Beninese) 10/05/2019 [facility] Strep Pneumo Type 1 0.4 ug/mL Low [...] developed and its performance characteristics determined by [employer]. It has not been cleared or approved by the U.S. Food and Drug Administration. Performed at: [facility] [address] [place] [address] [facility] [id number] Bottle Washer: Jessica Nolan PhD, Phone: [phone] 2 Units are mL/min/1.73 m2 Chronic Kidney Disease Staging per NKF: Stage I & II GFR >=60 Normal to Mildly Decreased Stage III GFR 30-59 Moderately Decreased Stage IV GFR 15-29 Severely Decreased Stage V GFR <15 Very Little GFR Left ESRD GFR <15 on SHOE IRONER 3 Interpretation: Non-Protective <0.10 Protective >=0.10 Results for this test are for research purposes only by the assay's stationary engineer apprentice. The performance characteristics of this product have not been established. Results should not be used as a diagnostic procedure without confirmation of the diagnosis by another medically established diagnostic product or procedure. Performed at: [facility] [address] [place] [address] [facility] [id number] Bottle Washer: Jessica Nolan PhD, Phone: [phone] Performed at: [address] [id number] Bottle Washer: Rickie Barker MD, Phone: [phone] 4 THE RUBELLA RESULT WAS OBTAI SANDRA WITH THE CENTAUR RUBELLA IGG ASSAY. IgG VALUES FROM ANOTHER MANUFACTURERS' METHOD MAY NOT BE USED INTERCHANGEABLY. MAGNITUDE OF LEVEL CANNOT BE CORRELATED TO AN ENDPOINT TITER. SUSCEPTIBLE 0.00-5.00 IU/ML EQUIVOCAL 5.01-9.99 IU/ML IMMUNE > 10.00 IU/ML 5 *This test was developed and its performance characteristics determined by [facility]. It has not been cleared or approved by the U.S. Food and Drug Administration. Procedures Date Code Description Status 02/04/2020 76845 Bronchodilation Resp onsiveness Spirometry Pre/Post Bronchodil Adm Completed 11/02/2019 53106 Allergy Tests Intrad ermal W/ Allergenic Extr Immediate Reaction Completed 11/02/2019 18479 Allergy Tests Percutaneous W/ Al lergenic Extracts Completed 10/01/2019 62114 Allergy Tests Intrad ermal W/ Allergenic Extr Immediate Reaction Completed 10/01/2019 79813 Allergy Tests Percutaneous W/ Al lergenic Extracts [...] unspecified Rian Yang M.D. Plan of Treatment 02/04/2020 - Rian Yang M.D.* J30.81 Allergic [...] * J44.9 Chronic obstructive pulmonary disease, unspecified* Recommendations:* Sample of Symbicort was provided to her. Should report response to her primary care provider and to Heavy Equipment Diesel Mechanic during consult. * All * Follow up:* 6 months. Sooner if needed. Functional Status Description No Information Available Mental Status Description No Information Available Referrals Description No Information Available
--- OUTSIDE RECORDS SUMMARY | 2020-04-15 02:05 | CCD ---
Author Author [facility] Organization [facility] Address Unknown Phone Unavailable Care Team Providers Care Helpdesk Specialist Name Role Phone NOEMI YANG MD Unavailable Unavailable NOEMI YANG MD Unavailable Unavailable NOEMI YANG MD Unavailable Unavailable NOEMI YANG MD Unavailable Unavailable NOEMI YANG MD Unavailable Unavailable NOEMI YANG MD Unavailable Unavailable NOEMI YANG MD Unavailable Unavailable NOEMI YANG MD Unavailable Unavailable NOEMI YANG MD Unavailable Unavailable NOEMI YANG MD Unavailable Unavailable NOEMI YANG MD Unavailable Unavailable NOEMI YANG MD Unavailable Unavailable NOEMI YANG MD Unavailable Unavailable NOEMI YANG MD Unavailable Unavailable NOEMI YANG MD Unavailable Unavailable NOEMI YANG MD Unavailable Unavailable NOEMI YANG MD Unavailable Unavailable NOEMI YANG MD Unavailable Unavailable NOEMI YANG MD Unavailable Unavailable NOEMI YANG MD Unavailable Unavailable NOEMI YANG MD Unavailable Unavailable NOEMI YANG MD Unavailable Unavailable NOEMI YANG MD Unavailable Unavailable NOEMI YANG MD Unavailable Unavailable CHROSTNOEMI SANTIAGO MD Unavailable Unavailable CHROSTOWSKI, NOEMI MD Unavailable Unavailable CHROSTOWSKI, NOEMI MD Unavailable Unavailable CHROSTOWSKI, NOEMI MD Unavailable Unavailable CHROSTOWSKI, NOEMI MD Unavailable Unavailable CHROSTOWSKI, NOEMI MD Unavailable Unavailable CHROSTOWSKI, NOEMI MD Unavailable Unavailable CHROSTOWSKI, NOEMI MD Unavailable Unavailable CHROSTOWSKI, NOEMI MD Unavailable Unavailable CHROSTOWSKI, NOEMI MD Unavailable Unavailable CHROSTOWSKI, NOEMI MD Unavailable Unavailable CHROSTOWSKI, NOEMI MD Unavailable Unavailable CHROSTOWSKI, NOEMI MD Unavailable Unavailable CHROSTOWSKI, NOEMI MD Unavailable Unavailable CHROSTOWSKI, NOEMI MD Unavailable Unavailable CHROSTOWSKI, NOEMI MD Unavailable Unavailable RING, K MARVA PA Unavailable Unavailable RING, K MARVA PA Unavailable Unavailable RING, K MARVA PA Unavailable Unavailable RING, K MARVA PA Unavailable Unavailable RING, K MARVA PA Unavailable Unavailable RING, K MARVA PA Unavailable Unavailable RING, K MARVA PA Unavailable Unavailable RING, K MARVA PA Unavailable Unavailable RING, K MARVA PA Unavailable Unavailable RING, K MARVA PA Unavailable Unavailable RING, K MARVA PA Unavailable Unavailable RING, K MARVA PA Unavailable Unavailable RING, K MARVA PA Unavailable Unavailable RING, K MARVA PA Unavailable Unavailable RING, K MARVA PA Unavailable Unavailable RING, K MARVA PA Unavailable Unavailable RING, K MARVA PA Unavailable Unavailable RING, K MARVA PA Unavailable Unavailable RING, K MARVA PA Unavailable Unavailable RING, K MARVA PA Unavailable Unavailable Britt Henley MD Unavailable Unavailable Britt Henley MD Unavailable Unavailable Britt Henley MD Unavailable Unavailable Britt Henley MD Unavailable Unavailable Britt Henley MD Unavailable Unavailable Britt Henley MD Unavailable Unavailable Britt Henley MD Unavailable Unavailable Britt Henley MD Unavailable Unavailable Britt Henley MD Unavailable Unavailable Britt Henley MD Unavailable Unavailable Britt Henley MD Unavailable Unavailable Britt Henley MD Unavailable Unavailable Britt Henley MD Unavailable Unavailable Britt Henley MD Unavailable Unavailable Britt Henley MD Unavailable Unavailable Britt Henley MD Unavailable Unavailable Britt Henley MD Unavailable Unavailable Britt Henley MD Unavailable Unavailable Britt Henley MD Unavailable Unavailable Britt Henley MD Unavailable Unavailable Britt Henley MD Unavailable Unavailable Britt Henley MD Unavailable Unavailable Ali, Britt MD Unavailable Unavailable Ali, Britt MD Unavailable Unavailable Ali, Britt MD Unavailable Unavailable Ali, Britt MD Unavailable Unavailable Ali, Britt MD Unavailable Unavailable Ali, Britt MD Unavailable Unavailable Ali, Britt MD Unavailable Unavailable Ali, Britt MD Unavailable Unavailable Ali, Britt MD Unavailable Unavailable Ali, Britt MD Unavailable Unavailable Ali, Britt MD Unavailable Unavailable Ali, Britt MD Unavailable Unavailable Ali, Britt MD Unavailable Unavailable Ali, Britt MD Unavailable Unavailable Ali, Britt MD Unavailable Unavailable Ali, Britt MD Unavailable Unavailable Ali, Britt MD Unavailable Unavailable Ali, Britt MD Unavailable Unavailable Ali, Britt MD Unavailable Unavailable Ali, Britt MD Unavailable Unavailable Ali, Britt MD Unavailable Unavailable Ali, Britt MD Unavailable Unavailable Ali, Britt MD Unavailable Unavailable Ali, Britt MD Unavailable Unavailable Ali, Britt MD Unavailable Unavailable Ali, Britt MD Unavailable Unavailable Ali, Britt MD Unavailable Unavailable Ali, Britt MD Unavailable Unavailable Ali, Britt MD Unavailable Unavailable Ali, Britt MD Unavailable Unavailable Truong, Dixie Loli PA Unavailable Unavailable Truong, Dixie Loli PA Unavailable Unavailable Truong, Dixie Loli PA Unavailable Unavailable Truong, Dixie Loli PA Unavailable Unavailable Truong, Dixie Loli PA Unavailable Unavailable Truong, Dixie Loli PA Unavailable Unavailable Truong, Dixie Loli PA Unavailable Unavailable Truong, Dixie Loli PA Unavailable Unavailable Truong, Dixie Loli PA Unavailable Unavailable Truong, Dixie Loli PA Unavailable Unavailable Re-disclosure Warning The records that you are about to access may contain information from federally-assisted alcohol or drug abuse programs. If such information is present, then the following federally mandated warning applies: This information has been disclosed to you from records protected by federal confidentiality rules (42 CFR part 2). The federal rules prohibit you from making any further disclosure of this information unless further disclosure is expressly permitted by the written consent of the person to whom it pertains or as otherwise permitted by 42 CFR part 2. A general authorization for the release of medical or other information is NOT sufficient for this purpose. The Federal rules restrict any use of the information to criminally investigate or prosecute any alcohol or drug abuse patient.The records that you are about to access may contain highly sensitive health information, the redisclosure of which is protected by Article 27-F of the [facility] Public Health law. If you continue you may have access to information: Regarding HIV / AIDS; Provided by facilities licensed or operated by the [facility] Office of Mental Health; or Provided by the [facility] Office for People With Developmental Disabilities. If such information is present, then the following [facility] mandated warning applies: This information has been disclosed to you from confidential records which are protected by state law. State law prohibits you from making any further disclosure of this information without the specific written consent of the person to whom it pertains, or as otherwise permitted by law. Any unauthorized further disclosure in violation of state law may result in a fine or fci sentence or both. A general authorization for the release of medical or other information is NOT sufficient authorization for further disc losure. Allergies and Adverse Reactions Type Description Substance Reaction Status Data Source(s ) Drug allergy Codeine Phosphate Drug allergy coma Active eCW 1 ([facility]) Drug allergy Singulair montelukast trouble breathing Active eCW 1 ([facility]) Drug allergy Keflex Cephalexin Hives Active eCW1 ([facility]) aspirin Aspirin Aspirin stomach pain Active eCW1 ([facility]) Drug allergy Ipratropium [place] Ipratropium trouble breathing Activ e eCW1 ([facility]) tetracycline Tetracycline HCl Tetracycline Hives Active eCW1 ([facility]) strawberries strawberries strawberries Hives Active eCW1 ([facility]) yellow dye yellow dye yellow dye Hives Active eCW1 ([facility]) strawberries strawberries strawberries Hives Active eCW1 ([facility]) yellow dye yellow dye yellow dye Hives Active eCW1 ([facility]) strawberries strawberries strawberries Hives Active eCW1 ([facility]) yellow dye yellow dye yellow dye Hives Active eCW1 ([facility]) strawberries strawberries strawberries Hives Active eCW1 ([facility]) yellow dye yellow dye yellow dye Hives Active eCW1 ([facility]) Family History Family Member Name Family Member Gender Family Member Status Date o f Status Description Data Source(s) Unknown Unknown Problem MEDENT ([facility]) Unknown Male Problem MEDENT ([facility]) () - at age 80 Unknown Unknown Problem MEDENT ([facility] ) Unknown Unknown Problem MEDENT ([facility] ) Unknown Unknown Problem MEDENT ([facility] ) 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 Unknown [address] [facility] [place] [address] 02/25/2020 12:00:00 AM EST [facility]CW1 [facility] Unknown [address] [facility] [place] [address] 02/22/2020 12:00:00 AM EST eCW1 [facility]) Unknown [address] [facility] [place] [address] 02/11/2020 12:00:00 AM EST eCW1 [facility]) Outpatient [address] [facility] [place] [address] 02/08/2020 12:00:00 AM EST [facility] Unknown [address] [facility] [place] [address] 02/07/2020 12:00:00 AM EST eCW1 [facility]) Outpatient Attender: NOEMI YANG MD Main Office 02/04/2020 09:15:00 AM EST MEDENT ([facility]) Unknown [address] [facility] [place] [address] 02/04/2020 12:00:00 AM EST [facility]CW1 [facility] Outpatient [address] [facility] [place] [address] 02/01/2020 12:00:00 AM EDT eCW1 [facility]) Unknown [address] [facility] [place] [address] 02/01/2020 12:00:00 AM EDT eCW1 ([facility]) Outpatient Attender: Britt Henley MD Main office - [place] 01/17/2020 11:45:00 AM EDT MEDENT ([facility]) Outpatient Attender: Loli Guzman devonte 01/04/2020 03:00:00 PM EDT MEDENT ([facility] [address] [facility] [place] [address] 11/14/2019 12:00:00 AM EDT eCW1 ([facility]) Outpatient Attender: NOEMI YANG MD Main Office 11/02/2019 10:30:00 AM EDT MEDENT ([facility]) Outpatient Attender: NOEMI YANG MD Main Office 10/29/2019 09:45:00 AM EDT MEDENT ([facility]) Outpatient Attender: NOEMI YANG MD Main Office 10/01/2019 08:45:00 AM EDT MEDENT ([facility]) Outpatient [address] [facility] [place] [address] 09/05/2019 12:00:00 AM EDT eCW1 ([facility]) [facility] [address] [facility] [place] [address] 08/29/2019 12:00:00 AM EDT eCW1 ([facility]) [facility] [address] [facility] [place] [address] 07/25/2019 12:00:00 AM EDT eCW1 ([facility]) [facility] [address] [facility] [place] [address] 07/19/2019 12:00:00 AM EDT eCW1 ([facility]) Outpatient Attender: Britt Henley MD Main office - [place] 07/18/2019 11:45:00 AM EDT MEDENT ([facility]) [facility] [address] [facility] [place] [address] 07/02/2019 12:00:00 AM EDT [facility]CW1 [facility] [place] [address] [place] [address], [place] [address] 06/29/2019 12:00:00 AM EDT eCW1 ([facility]) [facility] [place] [address] [place] [address], [place] [address] 06/14/2019 12:00:00 AM EDT eCW1 ([facility]) [facility] Rosen [address] [place] [address], [place] [address] 06/06/2019 12:00:00 AM EST eCW1 ([facility]) [facility] Rosen [address] [place] [address] [place] [address] 05/28/2019 12:00:00 AM EST eCW1 ([facility]) [facility] [place] [address] [place] [address] [place] [address] 05/09/2019 12:00:00 AM EST eCW1 ([facility]) Outpatient Attender: MARVA Waddell 05/05/2019 03:00:00 PM EST MEDENT ([facility]) [facility] [place] [address] [place] [address], [place] [address] 04/24/2019 12:00:00 AM EST eCW1 ([facility]) [facility] [place] [address] [place] [address] N [place] [address] 04/19/2019 12:00:00 AM EST eCW1 ([facility]) [facility] [place] [address] [place] [address] [place] [address] 04/18/2019 12:00:00 AM EST eCW1 ([facility]) [facility] Rosen [address] [place] [address] [place] [address] 03/23/2019 12:00:00 AM EST eCW1 ([facility]) [facility] [place] [address] [place] [address] [place] [address] 02/15/2019 12:00:00 AM EST eCW1 ([facility]) Immunizations Vaccine Date Status Description Data Source(s) pneumococcal polysaccharide PPV23 11/14/2019 10:14:00 AM EDT comple claudia eCW1 ([facility]) pneumococcal polysaccharide PPV23 11/14/2019 10:14:00 AM EDT comple claudia eCW1 ([facility]) pneumococcal polysaccharide PPV23 11/14/2019 10:14:00 AM EDT comple claudia eCW1 ([facility]) pneumococcal polysaccharide PPV23 11/14/2019 10:14:00 AM EDT comple claudia eCW1 ([facility]) pneumococcal polysaccharide PPV23 11/14/2019 10:14:00 AM EDT comple claudia eCW1 ([facility]) pneumococcal polysaccharide PPV23 11/14/2019 10:14:00 AM EDT comple claudia eCW1 ([facility]) pneumococcal polysaccharide PPV23 11/14/2019 10:14:00 AM EDT comple cluadia eCW1 ([facility]) pneumococcal polysaccharide PPV23 11/14/2019 10:14:00 AM EDT comple claudia eCW1 ([facility]) pneumococcal polysaccharide PPV23 11/14/2019 10:14:00 AM EDT comple claudia eCW1 ([facility]) Medications Medication Brand Name Start Date Product Form Dose Route Admi nistrative Instructions Pharmacy Instructions Status Indications Reaction Description Data Source(s) 160-4.5 mcg/actuation 03/06/2020 12:00:00 AM EST HFA aerosol inhaler 30 INHALE 2 PUFFS BY MOUTH TWO TIMES A DAY INHALE 2 PUFFS BY MOUTH TWO TIMES A DAY SOLD: 03/07/2020 [facility] Prednisone 20 MG Oral Tablet PredniSONE 20 MG PredniSONE 20 MG 02/08/2020 12:00:00 AM EST active PredniSO NE 20 MG eCW1 ([facility]) Prednisone 20 MG Oral Tablet PredniSONE 20 MG PredniSONE 20 MG 02/08/2020 12:00:00 AM EST active PredniSO NE 20 MG eCW1 ([facility]) Prednisone 20 MG Oral Tablet PredniSONE 20 MG PredniSONE 20 MG 02/08/2020 12:00:00 AM EST active PredniSO NE 20 MG eCW1 ([facility]) Prednisone 20 MG Oral Tablet PredniSONE 20 MG PredniSONE 20 MG 02/08/2020 12:00:00 AM EST active PredniSO NE 20 MG eCW1 ([facility]) Prednisone 20 MG Oral Tablet PredniSONE 20 MG PredniSONE 20 MG 02/08/2020 12:00:00 AM EST active PredniSO NE 20 MG eCW1 ([facility]) 20 mg 02/08/2020 12:00:00 AM EST tablet 7 TAKE 2 TABLETS BY MOUTH ONCE DAILY FOR 2 DAYS THEN 1 TABLET ONCE DAILY FOR 2 DAYS THEN 1/2 TABLET ONCE DAILY FOR 2 DAYS DIRECTED FOR 6 DAYS TAKE 2 TABLETS BY MOUTH ONCE DAILY FOR 2 DAYS THEN 1 TABLET ONCE DAILY FOR 2 DAYS THEN 1/2 TABLET ONCE DAILY FOR 2 DAYS DIRECTED FOR 6 DAYS SOLD: 02/08/2020 [facility] Prednisone 20 MG Oral Tablet PredniSONE 20 MG PredniSONE 20 MG 02/08/2020 12:00:00 AM EST active PredniSO NE 20 MG eCW1 ([facility]) 10 mg 02/07/2020 12:00:00 AM EST tablet 60 TAKE TWO TABLETS BY MOUTH AT BEDTIME TAKE TWO TABLETS BY MOUTH AT BEDTIME SOLD: 02/08/2020 [facility] 60 mg 02/07/2020 12:00:00 AM EST capsule,biphase delayed releas 30 TAKE ONE CAPSULE BY MOUTH EVERY DAY TAKE ONE CAPSULE BY MOUTH EVERY DAY SOLD: 03/07/2020 [facility] 60 mg 02/07/2020 12:00:00 AM EST capsule,biphase delayed releas 30 TAKE ONE CAPSULE BY MOUTH EVERY DAY TAKE ONE CAPSULE BY MOUTH EVERY DAY SOLD: 04/06/2020 [facility] 60 mg 02/07/2020 12:00:00 AM EST capsule,biphase delayed releas 30 TAKE ONE CAPSULE BY MOUTH EVERY DAY TAKE ONE CAPSULE BY MOUTH EVERY DAY SOLD: 02/08/2020 [facility] 10 mg 02/07/2020 12:00:00 AM EST tablet 60 TAKE TWO TABLETS BY MOUTH AT BEDTIME TAKE TWO TABLETS BY MOUTH AT BEDTIME SOLD: 04/06/2020 [facility] 10 mg 02/07/2020 12:00:00 AM EST tablet 60 TAKE TWO TABLETS BY MOUTH AT BEDTIME TAKE TWO TABLETS BY MOUTH AT BEDTIME SOLD: 03/07/2020 [facility] 60 ACTUAT Budesonide 0.16 MG/ACTUAT / fo rmoterol fumarate 0.0045 MG/ACTUAT Metered Dose Inhaler [Symbicort] Symbicort 02/04/2020 12:00:00 AM EST RESPIRATORY active MEDENT ( [facility]) Levofloxacin 500 MG Oral Tablet Levofloxacin 500 MG 02/04/2020 1 2:00:00 AM EST 1.0 {tablet} active Levofloxaci n 500 MG eCW1 ([facility]) Levofloxacin 500 MG Oral Tablet Levofloxacin 500 MG 02/04/2020 1 2:00:00 AM EST 1.0 {tablet} active Levofloxaci n 500 MG eCW1 ([facility]) Levofloxacin 500 MG Oral Tablet Levofloxacin 500 MG 02/04/2020 1 2:00:00 AM EST 1.0 {tablet} active Levofloxaci n 500 MG eCW1 ([facility]) Levofloxacin 500 MG Oral Tablet Levofloxacin 500 MG 02/04/2020 1 2:00:00 AM EST 1.0 {tablet} active Levofloxaci n 500 MG eCW1 ([facility]) Levofloxacin 500 MG Oral Tablet Levofloxacin 500 MG 02/04/2020 1 2:00:00 AM EST 1.0 {tablet} active Levofloxaci n 500 MG eCW1 ([facility]) 500 mg 02/04/2020 12:00:00 AM EST tablet 7 TAKE ONE TABLET BY MOUTH ONCE A DAY FOR 7 DAYS TAKE ONE TABLET BY MOUTH ONCE A DAY FOR 7 DAYS SOLD: 020 [facility] Levofloxacin 500 MG Oral Tablet Levofloxacin 500 MG 02/04/2020 1 2:00:00 AM EST 1.0 {tablet} active Levofloxaci n 500 MG eCW1 ([facility]) Levofloxacin 500 MG Oral Tablet Levofloxacin 500 MG 02/04/2020 1 2:00:00 AM EST 1.0 {tablet} active Levofloxaci n 500 MG eCW1 ([facility]) Levofloxacin 500 MG Oral Tablet Levofloxacin 500 MG 02/04/2020 1 2:00:00 AM EST 1.0 {tablet} active Levofloxaci n 500 MG eCW1 ([facility]) 100 mg 01/18/2020 12:00:00 AM EDT capsule 90 TAKE 1 CAPSULE BY MOUTH TWO TIMES A DAY FOR 3 DAYS THEN 1 EVERY MORNING AND 2 CAPS AT BEDTIME TAKE 1 CAPSULE BY MOUTH TWO TIMES A DAY FOR 3 DAYS THEN 1 EVERY MORNING AND 2 CAPS AT BEDTIME SOLD: 01/19/2020 [facility] 100 mg 01/18/2020 12:00:00 AM EDT capsule 90 TAKE 1 CAPSULE BY MOUTH TWO TIMES A DAY FOR 3 DAYS THEN 1 EVERY MORNING AND 2 CAPS AT BEDTIME TAKE 1 CAPSULE BY MOUTH TWO TIMES A DAY FOR 3 DAYS THEN 1 EVERY MORNING AND 2 CAPS AT BEDTIME SOLD: 03/07/2020 [facility] gabapentin 100 MG Oral Capsule Gabapentin 01/17/2020 12:00:00 AM EDT ORAL active MEDENT ([facility]) Tolnaftate 10 MG/ML Topical Cream Tolnaftate 01/04/2020 12:00:00 AM EDT active [facility] 0.02 % 12/17/2019 12:00:00 AM EDT solution 62 INHALE 1 VIAL VIA NEBULIZER EVERY 6 HOURS NEEDED INHALE 1 VIAL VIA NEBULIZER EVERY 6 HOURS NEEDED SOLD: 02/20/2020 [facility] 0.02 % 12/17/2019 12:00:00 AM EDT solution 62 INHALE 1 VIAL VIA NEBULIZER EVERY 6 HOURS NEEDED INHALE 1 VIAL VIA NEBULIZER EVERY 6 HOURS NEEDED SOLD: 02/20/2020 [facility] 0.02 % 12/17/2019 12:00:00 AM EDT solution 62 INHALE 1 VIAL VIA NEBULIZER EVERY 6 HOURS NEEDED INHALE 1 VIAL VIA NEBULIZER EVERY 6 HOURS NEEDED SOLD: 12/18/2019 [facility] 10 mg 12/10/2019 12:00:00 AM EDT tablet 60 TAKE TWO TABLETS BY MOUTH AT BEDTIME TAKE TWO TABLETS BY MOUTH AT BEDTIME SOLD: 01/12/2020 [facility] 10 mg 12/10/2019 12:00:00 AM EDT tablet 60 TAKE TWO TABLETS BY MOUTH AT BEDTIME TAKE TWO TABLETS BY MOUTH AT BEDTIME SOLD: 12/13/2019 [facility] 45-21 mcg/actuation 12/10/2019 12:00:00 AM EDT HFA aerosol i nhaler 12 INHALE 2 PUFFS BY MOUTH TWO TIMES A DAY INHALE 2 PUFFS BY MOUTH TWO TIMES A DAY SOLD: 12/13/2019 [facility] Flonase Allergy Relief Flonase Allergy Relief 11/02/2019 12:00:00 AM E DT active MEDENT ([facility] 75 mg 10/05/2019 12:00:00 AM EDT tablet 30 TAKE ONE TABLET BY MOUTH EVERY DAY TAKE ONE TABLET BY MOUTH EVERY DAY SOLD: 10/14/2019 [facility] 75 mg 10/05/2019 12:00:00 AM EDT tablet 30 TAKE ONE TABLET BY MOUTH EVERY DAY TAKE ONE TABLET BY MOUTH EVERY DAY SOLD: 11/14/2019 [facility] 75 mg 10/05/2019 12:00:00 AM EDT tablet 30 TAKE ONE TABLET BY MOUTH EVERY DAY TAKE ONE TABLET BY MOUTH EVERY DAY SOLD: 12/13/2019 [facility] 75 mg 09/08/2019 12:00:00 AM EDT tablet 30 TAKE ONE TABLET BY MOUTH EVERY DAY TAKE ONE TABLET BY MOUTH EVERY DAY SOLD: 09/09/2019 [facility] 75 mg 09/08/2019 12:00:00 AM EDT tablet 30 TAKE ONE TABLET BY MOUTH EVERY DAY TAKE ONE TABLET BY MOUTH EVERY DAY SOLD: 01/12/2020 [facility] 75 mg 09/08/2019 12:00:00 AM EDT tablet 30 TAKE ONE TABLET BY MOUTH EVERY DAY TAKE ONE TABLET BY MOUTH EVERY DAY SOLD: 02/08/2020 [facility] 75 mg 09/08/2019 12:00:00 AM EDT tablet 30 TAKE ONE TABLET BY MOUTH EVERY DAY TAKE ONE TABLET BY MOUTH EVERY DAY SOLD: 03/07/2020 [facility] 75 mg 09/08/2019 12:00:00 AM EDT tablet 30 TAKE ONE TABLET BY MOUTH EVERY DAY TAKE ONE TABLET BY MOUTH EVERY DAY SOLD: 04/06/2020 [facility] 90 mcg/actuation 09/05/2019 12:00:00 AM EDT HFA aerosol inha ler 8 INHALE ONE PUFF BY MOUTH FOUR TIMES A DAY NEEDED INHALE ONE PUFF BY MOUTH FOUR TIMES A DAY NEEDED SOLD: 09/09/2019 [facility] 750 mg 09/05/2019 12:00:00 AM EDT tablet 5 TAKE ONE TABLET BY MOUTH EVERY DAY FOR 5 DAYS TAKE ONE TABLET BY MOUTH EVERY DAY FOR 5 DAYS SOLD: 09/09/2019 [facility] 90 mcg/actuation 09/05/2019 12:00:00 AM EDT HFA aerosol inha ler 8 INHALE ONE PUFF BY MOUTH FOUR TIMES A DAY NEEDED INHALE ONE PUFF BY MOUTH FOUR TIMES A DAY NEEDED SOLD: 01/12/2020 [facility] 90 mcg/actuation 09/05/2019 12:00:00 AM EDT HFA aerosol inha ler 8 INHALE ONE PUFF BY MOUTH FOUR TIMES A DAY NEEDED INHALE ONE PUFF BY MOUTH FOUR TIMES A DAY NEEDED SOLD: 10/14/2019 [facility] 180 MG [facility] 180 MG 09/05/2019 12:00:00 A M EDT 1.0 {tablet_as_needed} active Natacha Aller gy 180 MG eCW1 ([facility]) 90 mcg/actuation 09/05/2019 12:00:00 AM EDT HFA aerosol inha ler 8 INHALE ONE PUFF BY MOUTH FOUR TIMES A DAY NEEDED INHALE ONE PUFF BY MOUTH FOUR TIMES A DAY NEEDED SOLD: 03/07/2020 [facility] 1 % 08/30/2019 12:00:00 AM EDT gel 100 APPLY TO BACK AND HIPS FOUR TIMES A DAY APPLY TO BACK AND HIPS FOUR TIMES A DAY SOLD: 09/02/2019 [facility] Diclofenac Sodium 0.01 MG/MG Topical Gel Diclofenac So dium 1 % Diclofenac Sodium 1 % 08/30/2019 12:00:00 AM EDT active Diclofenac Sodium 1 % eCW1 ([facility]) 137 mcg (0.1 %) 08/30/2019 12:00:00 AM EDT aerosol,spray 30 SPRAY ONE SPRAY IN EACH NOSTRIL TWICE A DAY SPRAY ONE SPRAY IN EACH NOSTRIL TWICE A DAY SOLD: 09/02/2019 [facility] Diclofenac Sodium 0.01 MG/MG Topical Gel Diclofenac So dium 1 % Diclofenac Sodium 1 % 08/30/2019 12:00:00 AM EDT active to back and hips eCW1 ([facility]) Azelastine HCl 0.1 % Azelastine HCl 0.1 % 08/29/2019 12:00:00 AM EDT active 1 puff in each nostril eCW1 ([facility] [facility] Azelastine HCl 0.1 % Azelastine HCl 0.1 % 08/29/2019 12:00:00 AM ED T 1.0 {puff_in_each_nostril} suspended Azelast ine HCl 0.1 % eCW1 ([facility]) 60 mg 08/08/2019 12:00:00 AM EDT capsule,biphase delayed releas 30 TAKE ONE CAPSULE BY MOUTH EVERY DAY TAKE ONE CAPSULE BY MOUTH EVERY DAY SOLD: 08/14/2019 [facility] 60 mg 08/08/2019 12:00:00 AM EDT capsule,biphase delayed releas 30 TAKE ONE CAPSULE BY MOUTH EVERY DAY TAKE ONE CAPSULE BY MOUTH EVERY DAY SOLD: 01/12/2020 [facility] 60 mg 08/08/2019 12:00:00 AM EDT capsule,biphase delayed releas 30 TAKE ONE CAPSULE BY MOUTH EVERY DAY TAKE ONE CAPSULE BY MOUTH EVERY DAY SOLD: 10/14/2019 [facility] 60 mg 08/08/2019 12:00:00 AM EDT capsule,biphase delayed releas 30 TAKE ONE CAPSULE BY MOUTH EVERY DAY TAKE ONE CAPSULE BY MOUTH EVERY DAY SOLD: 12/13/2019 [facility] 60 mg 08/08/2019 12:00:00 AM EDT capsule,biphase delayed releas 30 TAKE ONE CAPSULE BY MOUTH EVERY DAY TAKE ONE CAPSULE BY MOUTH EVERY DAY SOLD: 09/09/2019 [facility] 60 mg 08/08/2019 12:00:00 AM EDT capsule,biphase delayed releas 30 TAKE ONE CAPSULE BY MOUTH EVERY DAY TAKE ONE CAPSULE BY MOUTH EVERY DAY SOLD: 11/14/2019 [facility] Nicotine 2 MG Chewing Gum [Nicorette] Nicorette 2 MG Nicoret te 2 MG 07/19/2019 12:00:00 AM EDT active Nicorett e 2 MG eCW1 ([facility]) Nicotine 2 MG Chewing Gum [Nicorette] Nicorette 2 MG Nicoret te 2 MG 07/19/2019 12:00:00 AM EDT active 1 piece for 30 minute as needed eCW1 ([facility]) 20 mg 06/30/2019 12:00:00 AM EDT tablet 20 TAKE 3 TABLETS BY MOUTH DAILY ON DAYS 1-3, THEN TAKE 2 DAILY ON DAYS 4-7, THEN TAKE 1 DAILY ON DAYS 8-10 TAKE 3 TABLETS BY MOUTH DAILY ON DAYS 1-3, THEN TAKE 2 DAILY ON DAYS 4-7, THEN TAKE 1 DAILY ON DAYS 8-10 SOLD: 07/03/2019 [facility] 750 mg 06/20/2019 12:00:00 AM EDT tablet 14 TAKE ONE TABLET BY MOUTH EVERY DAY TAKE ONE TABLET BY MOUTH EVERY DAY SOLD: 06/20/2019 [facility] 5 mg 06/20/2019 12:00:00 AM EDT tablet 120 TAKE FOUR TABLETS BY MOUTH THREE TIMES A DAY WITH FOOD TAKE FOUR TABLETS BY MOUTH THREE TIMES A DAY WITH FOOD SOLD: 06/20/2019 [facility] 10 mg 06/09/2019 12:00:00 AM EST tablet 60 TAKE TWO TABLETS BY MOUTH AT BEDTIME TAKE TWO TABLETS BY MOUTH AT BEDTIME SOLD: 09/09/2019 [facility] 75 mg 06/09/2019 12:00:00 AM EST tablet 30 TAKE ONE TABLET BY MOUTH EVERY DAY TAKE ONE TABLET BY MOUTH EVERY DAY SOLD: 07/13/2019 [facility] 10 mg 06/09/2019 12:00:00 AM EST tablet 60 TAKE TWO TABLETS BY MOUTH AT BEDTIME TAKE TWO TABLETS BY MOUTH AT BEDTIME SOLD: 07/13/2019 [facility] 10 mg 06/09/2019 12:00:00 AM EST tablet 60 TAKE TWO TABLETS BY MOUTH AT BEDTIME TAKE TWO TABLETS BY MOUTH AT BEDTIME SOLD: 11/14/2019 [facility] 75 mg 06/09/2019 12:00:00 AM EST tablet 30 TAKE ONE TABLET BY MOUTH EVERY DAY TAKE ONE TABLET BY MOUTH EVERY DAY SOLD: 06/14/2019 [facility] 10 mg 06/09/2019 12:00:00 AM EST tablet 60 TAKE TWO TABLETS BY MOUTH AT BEDTIME TAKE TWO TABLETS BY MOUTH AT BEDTIME SOLD: 10/14/2019 [facility] 10 mg 06/09/2019 12:00:00 AM EST tablet 60 TAKE TWO TABLETS BY MOUTH AT BEDTIME TAKE TWO TABLETS BY MOUTH AT BEDTIME SOLD: 08/14/2019 [facility] 75 mg 06/09/2019 12:00:00 AM EST tablet 30 TAKE ONE TABLET BY MOUTH EVERY DAY TAKE ONE TABLET BY MOUTH EVERY DAY SOLD: 08/14/2019 [facility] 10 mg 06/09/2019 12:00:00 AM EST tablet 60 TAKE TWO TABLETS BY MOUTH AT BEDTIME TAKE TWO TABLETS BY MOUTH AT BEDTIME SOLD: 06/14/2019 [facility] 90 mcg/actuation 05/14/2019 12:00:00 AM EST HFA aerosol inha ler 8 INHALE FOUR TIMES A DAY NEEDED DIRECTED INHALE FOUR TIMES A DAY NEEDED DIRECTED SOLD: 05/27/2019 [facility] 750 mg 05/07/2019 12:00:00 AM EST tablet 5 TAKE ONE TABLET BY MOUTH EVERY DAY FOR 5 DAYS TAKE ONE TABLET BY MOUTH EVERY DAY FOR 5 DAYS SOLD: 05/07/2019 [facility] 10 mg 05/06/2019 12:00:00 AM EST tablet 16 TAKE FOUR TABLETS BY MOUTH EVERY DAY FOR 4 DAYS TAKE FOUR TABLETS BY MOUTH EVERY DAY FOR 4 DAYS SOLD: 2019 [facility] Prednisone 20 MG Oral Tablet Prednisone 05/05/2019 12:00:00 AM EST ORAL active MEDENT ([facility]) Clarithromycin 500 MG Oral Tablet Clarithromycin 05/05/2019 12:00:00 AM EST ORAL active MEDENT ([facility]) 20 mg 05/05/2019 12:00:00 AM EST tablet 8 TAKE ONE TABLET BY MOUTH TWO TIMES A DAY FOR 4 DAYS TAKE ONE TABLET BY MOUTH TWO TIMES A DAY FOR 4 DAYS SO LD: 05/06/2019 [facility] 500 mg 05/05/2019 12:00:00 AM EST tablet 14 TAKE ONE TABLET BY MOUTH EVERY 12 HOURS FOR 7 DAYS TAKE ONE TABLET BY MOUTH EVERY 12 HOURS FOR 7 DAYS ER[facility] 250-50 mcg/dose 04/20/2019 12:00:00 AM EST blister with jayla ce 60 INHALE ONE PUFF BY MOUTH TWICE A DAY INHALE ONE PUFF BY MOUTH TWICE A DAY SOLD: 04/25/2019 [facility] Levofloxacin 750 MG Oral Tablet [Levaquin] Levaquin 750 MG L evaquin 750 MG 04/18/2019 12:00:00 AM EST suspended 1 tablet eCW1 ([facility]) 60 ACTUAT Fluticasone propionate 0.25 MG /ACTUAT / salmeterol 0.05 MG/ACTUAT Dry Powder Inhaler [Advair] Advair Diskus 250-50 MCG/DOSE Advair Diskus 250-50 MCG/DOSE 04/18/2019 12:00:00 AM EST suspended 1 puff eCW1 ([facility]) 60 ACTUAT Fluticasone propionate 0.25 MG /ACTUAT / salmeterol 0.05 MG/ACTUAT Dry Powder Inhaler [Advair] Advair Diskus 250-50 MCG/DOSE Advair Diskus 250-50 MCG/DOSE 04/18/2019 12:00:00 AM EST 1.0 {puff} activ e Advair Diskus 250-50 MCG/DOSE eCW1 ([facility]) Levofloxacin 750 MG Oral Tablet [Levaquin] Levaquin 750 MG L evaquin 750 MG 04/18/2019 12:00:00 AM EST suspended 1 tablet eCW1 ([facility]) 60 ACTUAT Fluticasone propionate 0.25 MG /ACTUAT / salmeterol 0.05 MG/ACTUAT Dry Powder Inhaler [Advair] Advair Diskus 250-50 MCG/DOSE Advair Diskus 250-50 MCG/DOSE 04/18/2019 12:00:00 AM EST active 1 puff eCW1 ([facility]) Levofloxacin 750 MG Oral Tablet [Levaquin] Levaquin 750 MG L evaquin 750 MG 04/18/2019 12:00:00 AM EST active 1 tablet eCW1 ([facility]) 750 mg 04/18/2019 12:00:00 AM EST tablet 5 TAKE ONE TABLET BY MOUTH EVERY DAY FOR 5 DAYS TAKE ONE TABLET BY MOUTH EVERY DAY FOR 5 DAYS SOLD: 04/18/2019 [facility] Levofloxacin 750 MG Oral Tablet [Levaquin] Levaquin 750 MG L evaquin 750 MG 04/18/2019 12:00:00 AM EST 1.0 {tablet} active Levaquin 750 MG eCW1 ([facility]) 60 ACTUAT Fluticasone propionate 0.25 MG /ACTUAT / salmeterol 0.05 MG/ACTUAT Dry Powder Inhaler [Advair] Advair Diskus 250-50 MCG/DOSE Advair Diskus 250-50 MCG/DOSE 04/18/2019 12:00:00 AM EST suspended 1 puff eCW1 ([facility]) 10 mg 03/09/2019 12:00:00 AM EST tablet 60 TAKE TWO TABLETS BY MOUTH AT BEDTIME TAKE TWO TABLETS BY MOUTH AT BEDTIME SOLD: 04/14/2019 [facility] 10 mg 03/09/2019 12:00:00 AM EST tablet 60 TAKE TWO TABLETS BY MOUTH AT BEDTIME TAKE TWO TABLETS BY MOUTH AT BEDTIME SOLD: 05/14/2019 [facility] 75 mg 03/09/2019 12:00:00 AM EST tablet 30 TAKE ONE TABLET BY MOUTH EVERY DAY TAKE ONE TABLET BY MOUTH EVERY DAY SOLD: 05/14/2019 [facility] 75 mg 03/09/2019 12:00:00 AM EST tablet 30 TAKE ONE TABLET BY MOUTH EVERY DAY TAKE ONE TABLET BY MOUTH EVERY DAY SOLD: 03/14/2019 [facility] 75 mg 03/09/2019 12:00:00 AM EST tablet 30 TAKE ONE TABLET BY MOUTH EVERY DAY TAKE ONE TABLET BY MOUTH EVERY DAY SOLD: 04/14/2019 [facility] 10 mg 03/09/2019 12:00:00 AM EST tablet 60 TAKE TWO TABLETS BY MOUTH AT BEDTIME TAKE TWO TABLETS BY MOUTH AT BEDTIME SOLD: 03/14/2019 [facility] 60 mg 02/08/2019 12:00:00 AM EST capsule,biphase delayed releas 30 TAKE ONE CAPSULE BY MOUTH EVERY DAY TAKE ONE CAPSULE BY MOUTH EVERY DAY SOLD: 04/14/2019 [facility] 60 mg 02/08/2019 12:00:00 AM EST capsule,biphase delayed releas 30 TAKE ONE CAPSULE BY MOUTH EVERY DAY TAKE ONE CAPSULE BY MOUTH EVERY DAY SOLD: 06/14/2019 [facility] 60 mg 02/08/2019 12:00:00 AM EST capsule,biphase delayed releas 30 TAKE ONE CAPSULE BY MOUTH EVERY DAY TAKE ONE CAPSULE BY MOUTH EVERY DAY SOLD: 03/14/2019 [facility] 60 mg 02/08/2019 12:00:00 AM EST capsule,biphase delayed releas 30 TAKE ONE CAPSULE BY MOUTH EVERY DAY TAKE ONE CAPSULE BY MOUTH EVERY DAY SOLD: 02/12/2019 [facility] 60 mg 02/08/2019 12:00:00 AM EST capsule,biphase delayed releas 30 TAKE ONE CAPSULE BY MOUTH EVERY DAY TAKE ONE CAPSULE BY MOUTH EVERY DAY SOLD: 05/14/2019 [facility] 60 mg 02/08/2019 12:00:00 AM EST capsule,biphase delayed releas 30 TAKE ONE CAPSULE BY MOUTH EVERY DAY TAKE ONE CAPSULE BY MOUTH EVERY DAY SOLD: 07/13/2019 [facility] 75 mg 06/03/2018 12:00:00 AM EST tablet 30 TAKE ONE TABLET BY MOUTH EVERY DAY TAKE ONE TABLET BY MOUTH EVERY DAY SOLD: 02/12/2019 [facility] 10 mg 04/04/2018 12:00:00 AM EST tablet 60 TAKE TWO TABLETS BY MOUTH AT BEDTIME TAKE TWO TABLETS BY MOUTH AT BEDTIME SOLD: 02/12/2019 [facility] Insurance Providers Payer name Policy type / Coverage type Policy ID Covered libertarian ID Covered libertarian's relationship to samuel Policy Samuel Plan Information [facility] [id number] SP [id number] MEDICARE COMPLETE [id number] SP [id number] EMEDNY [id number] SP [id number] [facility](MCAID) O [id number] S [id number] MEDICAID M [id number] S [id number] [facility] [id number] SP [id number] MEDICARE [id number] SP [id number] MEDICAID [id number] SP [id number] MEDICARE C [id number] S [id number] [facility] [id number] [facility] [id number] [facility]-Medicaid [id number] [facility]-Medicaid [id number] [facility]-Medicaid [id number] [facility] [id number] [facility]-Medicaid [id number] ANSI-Medicaid [id number] ANSI-Medicare Part B [id number] ANSI-Medicare Part B [id number] ANSI-Medicaid [id number] ANSI-Medicaid [id number] ANSI-Medicare Part B [id number] ANSI-Medicare Part B [id number] ANSI-Medicaid [id number] ANSI-Medicare Part B [id number] ANSI-Medicaid [id number] ANSI-Medicaid [id number] ANSI-Medicaid [id number] ANSI-Medicaid [id number] ANSI-Medicaid [id number] [facility] [id number] ANSI-Medicaid [id number] ANSI-Medicaid [id number] ANSI-Medicaid [id number] ANSI-Medicaid [id number] ANSI-Medicaid [id number] Medicare Natl Gov't Servi Medicare Primary [id number] Self [id number] [facility] Health Maintenance Organization (HMO) [id number] Self [id number] Medicare Natl Gov't Servi Medicare Primary [id number] Self [id number] [facility] O [id number] S [id number] ANSI-Medicaid [id number] ANSI-Medicaid [id number] Medicaid [place] Medig[place] Part B [id number] Self [id number] o [facility]/Medicaid Health Maintenance Organization (HMO) [id number] Self [id number] [facility] Health Maintenance Organization (HMO) [id number] Self [id number] [facility] Health Maintenance Organization (O) [id number] Self [id number] ANSI-Medicaid [id number] ANSI-Medicaid [id number] ANSI-Medicaid [id number] ANSI-Medicaid [id number] ANSI-Medicaid [id number] [facility] [id number] SP [id number] [facility] Health Maintenance Organization (HMO) [id number] Self [id number] [place] Medig[place] Part [place] [id number] Self [id number] Hmo Blue Option/Medicaid Health Maintenance Organization (HMO) [id number] Self [id number] [place] [id number] Self [id number] Hmo Blue Option/Medicaid Health Maintenance Organization (HMO) [id number] Self [id number] [place] Medigap Part [place] [id number] Self [id number] Hmo Blue Option/Medicaid Health Maintenance Organization (HMO) [id number] Self [id number] UNHC COMMUNITY PLAN MCDHMO [id number] SP [id number] [facility] Community Plan Commercial [id number] Self [id number] United[employer] Care Hmo Commercial [id number] Self [id number] [facility] Commercial [id number] Self [id number] [facility] Hmo Commercial Self UNHC COMMUNITY PLAN MCDHMO [id number] SP [id number] [place] Medigap Part B Self Hmo Blue Option/Medicaid Health Maintenance Organization (HMO) [id number] Self [id number] [facility] Health Maintenance Organization (HMO) [facility] Organization (HMO) Self BLUE CROSS [employer] PLAN [id number] SP [id number] UNHC AMERICHOICE XIX HMO [id number] 18 [id number] BLUE CROSS BLUE SHIELD-O/P [id number] 18 [id number] [employer] BCBS P [id number] S [id number] BLUE CROSS BLUE SHIELD-CLINIC [id number] 18 [id number] EXCELLUS BCBS P UNAVAILABLE S UNAV AILABLE HMO BLUE [id number] SP [id number] P UNAVAILABLE UNAVAILA BLE Problems, Conditions, and Diagnoses Code Display Name Description Problem Type Effective Dates Data Source(s) J32.9 39356466 Chronic sinusitis, unspecified location P balbir 02/08/2020 12:00:00 AM EST eCW1 ([facility]) 94100560 Cervico-occipital neuralgia Cervico-occipital neuralgi a Problem 01/17/2020 12:00:00 AM EDT MEDABDIAS ([facility]) 062999843 Allergic rhinitis due to house dust mite Allergic rhinitis due to house dust mite Problem 11/02/2019 12:00:00 AM EDT MEDENT ([facility]) Note: 2+ reaction to dust mites on intra dermal test. Completed 2019. 76118976 Allergic rhinitis due to animals Allergic rhinit is due to animals Problem 11/02/2019 12:00:00 AM EDT MEDENT ([facility]) Note: 3+ reaction to cat dander on intr adermal test. Completed 2019. 20406678 Chronic sinusitis Chronic sinusitis Problem 10/01/2019 12:00:00 AM EDT MEDENT ([facility]) 926811855 Immunodeficiency disorder Immunodeficiency disorder Pr oblem 10/01/2019 12:00:00 AM EDT MEDENT ([facility] ) Adverse effect of penicillins, initial e ncounter Adverse effect of penicillins, initial encounter Problem 10/01/2019 12:00:00 AM EDT ME DENT ([facility]) 83450310 Chronic obstructive lung disease Chronic obstruc tive lung disease Problem 10/01/2019 12:00:00 AM EDT MED[facility] ([facility]) J30.89 11100789 Non-seasonal allergic rhinitis, unspecifi ed trigger Problem 09/05/2019 12:00:00 AM EDT eCW1 ([facility]) F17.218 [id number] Cigarette nicotine d ependence with other nicotine- induced disorder Problem 07/19/2019 12:00:00 AM EDT eCW1 ([facility]) F17.218 [id number] Cigarette nicotine d ependence with other nicotine- induced disorder Problem 07/19/2019 12:00:00 AM EDT eCW1 ([facility]) Surgeries/Procedures Procedure Description Date Indications Data Source(s) BRNCDILAT RSPSE SPMTRY PRE&POST-BRNCDILAT ADMN 020 12:00:00 AM EST MEDENT ([facility]) CHEMODNRVTJ [facility] INNERVATED FACIAL NRV 11/23/2019 12:00:00 AM EDT MEDENT ([facility]) PERCUTANEOUS TESTS W/ALLERGENIC EXTRACTS 11/02/2019 12 :00:00 AM EDT MEDENT ([facility]) INTRACUTANEOUS TESTS W/ALLERGENIC EXTRACTS 11/02/2019 12:00:00 AM EDT MED[facility] ([facility]) PERCUTANEOUS TESTS W/ALLERGENIC EXTRACTS 10/01/2019 12 :00:00 AM EDT MED[facility] ([facility]) INTRACUTANEOUS TESTS W/ALLERGENIC EXTRACTS 10/01/2019 12:00:00 AM EDT MEDENT ([facility]) CHEMODNRVTOK [facility] INNERVATED FACIAL NRV 08/23/2019 12:00:00 AM EDT MEDENT ([facility] ) Office Visit, Est Pt., Level 2 FC 07/19/2019 12:00:00 AM EDT eCW1 ([facility]) Office Visit, Est Pt., Level 4 PC 07/19/2019 12:00:00 AM EDT eCW1 ([facility]) Office Visit, Est Pt., Level 3 PC 05/28/2019 12:00:00 AM EST eCW1 ([facility]) [facility] 05/24/2019 12:00:00 AM EST MEDENT ([facility]) [facility] 02/16/2019 12:00:00 AM EST MEDENT ([facility] ) Results ID Date Data Source [id number] 12/21/2019 08:37:00 AM EDT [facility] ([facility] Name Value Range Interpretation Code Description Data Aby rce(s) Supporting Document(s) Laboratory test finding (navigational concept) 4.0 ug/mL Normal (applies to non-numeric results) [facility] ([facility]) Laboratory test finding (navigational concept) 0.7 ug/mL Below low normal [facility] ([facility]) Laboratory test finding (navigational concept) 39.8 ug/mL Normal (applies to non-numeric results) [facility] ([facility]) Laboratory test finding (navigational concept) 3.0 ug/mL Normal (applies to non-numeric results) [facility] ([facility]) Laboratory test finding (navigational concept) 5.8 ug/mL Normal (applies to non-numeric results) [facility] ([facility]) Laboratory test finding (navigational concept) 12.5 ug/mL Normal (applies to non-numeric results) [facility] ([facility]) Laboratory test finding (navigational concept) 0.5 ug/mL Below low normal [facility] ([facility]) Laboratory test finding (navigational concept) 2.9 ug/mL Normal (applies to non-numeric results) [facility] ([facility]) Laboratory test finding (navigational concept) 2.3 ug/mL Normal (applies to non-numeric results) [facility] ([facility]) Laboratory test finding (navigational concept) 0.7 ug/mL Below low normal [facility] ([facility]) Laboratory test finding (navigational concept) 24.3 ug/mL Normal (applies to non-numeric results) [facility]) Laboratory test finding (navigational concept) 9.5 ug/mL Normal (applies to non-numeric results) [facility] ([facility]) *This test was developed and its perform ance characteristics determined by [facility]. It has not been cleared or approved by the U.S. Food and Drug Administration. Performed at: [facility] [address] [id number] Food Service Worker: Jessica Nolan PhD, Phone: [phone] Laboratory test finding (navigational concept) 12.4 ug/mL Normal (applies to non-numeric results) [facility] ([facility]) Laboratory test finding (navigational concept) 15.9 ug/mL Normal (applies to non-numeric results) [facility] ([facility]) ID Date Data Source [id number] 10/05/2019 09:18:00 AM EDT MED[facility] ([facility]) Name Value Range Interpretation Code Description Data Aby rce(s) Supporting Document(s) Laboratory test finding (navigational concept) 0.4 ug/mL Below low normal [facility] ([facility]) Laboratory test finding (navigational concept) 0.3 ug/mL Below low normal [facility] ([facility]) Laboratory test finding (navigational concept) Laboratory test r esult Below low normal [facility] ([facility] ) Laboratory test finding (navigational concept) 6.5 ug/mL Normal (applies to non-numeric results) [facility]) Laboratory test finding (navigational concept) Laboratory test r esult Below low normal [facility] ([facility] ) Laboratory test finding (navigational concept) 0.1 ug/mL Below low normal [facility] ([facility]) Laboratory test finding (navigational concept) 0.7 ug/mL Below low normal [facility] ([facility]) Laboratory test finding (navigational concept) 0.5 ug/mL Below low normal [facility] ([facility]) Laboratory test finding (navigational concept) 2.2 ug/mL Normal (applies to non-numeric results) [facility]) Laboratory test finding (navigational concept) Laboratory test r esult Below low normal [facility] ([facility] ) Laboratory test finding (navigational concept) 0.1 ug/mL Below low normal [facility] ([facility]) Laboratory test finding (navigational concept) 0.3 ug/mL Below low normal [facility] ([facility]) *This test was developed and its perform ance characteristics determined by [facility]. It has not been cleared or approved by the U.S. Food and Drug Administration. Laboratory test finding (navigational concept) 2.1 ug/mL Normal (applies to non-numeric results) [facility] ([facility]) Laboratory test finding (navigational concept) 0.4 ug/mL Below low normal [facility] ([facility]) ID Date Data Source [id number] 10/05/2019 09:18:00 AM EDT [facility] ([facility]) Name Value Range Interpretation Code Description Data Aby rce(s) Supporting Document(s) IgE [Mass/volume] in Serum 45.5 IU/ml Normal (applie s to non-numeric results) [facility] ([facility]) Clostridium tetani toxin Ab [Presence] in Serum 1.51 IU/ml Normal (applies to non-numeric results) [facility] ([facility]) <content>Interpretation:</content>
< content>Non-Protective <0.10</content>
<content>Protective >=0.10</content>
<content>Results for this test are for research purposes</content>
<content>only by the assay's glue drier operator. The performance</content>
<content>characteristics of this product have not been</content>
<content>established. Results should not be used as a</c ontent>
<content>diagnostic procedure without confirmation of the</content>
<content>diagnosis by another medically established diagnostic</content>
<content>product or procedure.</content>
<content> Performed at: [facility]</content>
<content>[address], [place] [id number]</content>
<content>Food Service Worker: Jessica Nolan PhD, Phone: [phone]</content>
<content> Performed at: [facility]</content>
<content>[address] [place] [phone]</content>
<content>Food Service Worker: Rickie Barker MD, Phone: [phone]</content>
<content></content> Rubella virus IgG Ab [Units/volume] in Serum or Plasma by Immunoassay Laboratory test result Normal (applies to non-numeric results) [facility] ([facility]) THE RUBELLA RESULT WAS OBTAINED WITH THE CENTAUR RUBELLA IGG ASSAY. IgG VALUES FROM ANOTHER MANUFACTURERS' METHOD MAY NOT BE USED INTERCHANGEABLY. MAGNITUDE OF LEVEL CANNOT BE CORRELATED TO AN ENDPOINT TITER. SUSCEPTIBLE 0.00-5.00 IU/ML EQUIVOCAL 5.01-9.99 IU/ML IMMUNE > 10.00 IU/ML ID Date Data Source [id number] 10/05/2019 09:18:00 AM EDT [facility] ([facility]) Name Value Range Interpretation Code Description Data Aby rce(s) Supporting Document(s) Laboratory test finding (navigational concept) 70.8 mg/dL 4 0-230 Normal (applies to non-numeric results) [facility]) Laboratory test finding (navigational concept) 744 mg/dL 6 81-1648 Normal (applies to non-numeric results) [facility] Laboratory test finding (navigational concept) 172.0 mg/dL 7 0-400 Normal (applies to non-numeric results) [facility] ([facility] ID Date Data Source [id number] 10/05/2019 09:18:00 AM EDT [facility] ([facility]) Name Value Range Interpretation Code Description Data Aby rce(s) Supporting Document(s) Laboratory test finding (navigational concept) 81 mg/dL 7 0-100 Normal (applies to non-numeric results) [facility] ([facility]) Laboratory test finding (navigational concept) 17 mg/dL 7 -18 Normal (applies to non-numeric results) [facility] [place] Laboratory test finding (navigational concept) 0.73 mg/dL 0 .55-1.30 Normal (applies to non-numeric results) [facility] Laboratory test finding (navigational concept) Laboratory test r esult Normal (applies to non-numeric results) [facility] ([facility]) <content>Units are mL/min/1.73 m2</content>
<content></content>
<content>Chronic Kidney Disease Staging per [facility]:</content>
<content></content>
<content>Stage I & II GFR >=60 Normal to Mildly Decreased</content>
<content>Stage III GFR 30- 59 Moderately Decreased</content>
<content>Stage IV GFR 15-29 Severely Decreased</content>
<content>Stage V GFR <15 Very Little GFR Left</content>
<content>ESRD GFR <15 on FINAL INSPECTOR BALANCE WHEEL</content>
<content></content> Laboratory test finding (navigational concept) 4.6 meq/L 3 .5-5.1 Normal (applies to non-numeric results) [facility]) Laboratory test finding (navigational concept) 143 meq/L 1 36-145 Normal (applies to non-numeric results) [facility] Laboratory test finding (navigational concept) 30 meq/L 2 1-32 Normal (applies to non-numeric results) [facility] [place]) Laboratory test finding (navigational concept) 6 meq/L 8-16 Below low normal [facility] ([facility]) Laboratory test finding (navigational concept) 9.3 mg/dL 8 .8-10.2 Normal (applies to non-numeric results) [facility] Laboratory test finding (navigational concept) 107 meq/L 9 8-107 Normal (applies to non-numeric results) [facility] ([facility]) Laboratory test finding (navigational concept) 30 U/L 1 2-78 Normal (applies to non-numeric results) [facility] Laboratory test finding (navigational concept) 133 U/L 45-117 Above high normal [facility] ([facility]) Laboratory test finding (navigational concept) 23 U/L 7 -37 Normal (applies to non-numeric results) [facility] Laboratory test finding (navigational concept) 0.3 mg/dL 0 .2-1.0 Normal (applies to non-numeric results) [facility] Laboratory test finding (navigational concept) 3.7 GM/DL 3 .2-5.2 Normal (applies to non-numeric results) [facility] Laboratory test finding (navigational concept) 1.1 1.2-2.2 Below low normal [facility] ([facility]) Laboratory test finding (navigational concept) 7.0 GM/DL 6 .4-8.2 Normal (applies to non-numeric results) [facility] ID Date Data Source [id number] 10/05/2019 09:18:00 AM EDT [facility] ([facility]) Name Value Range Interpretation Code Description Data Aby rce(s) Supporting Document(s) Erythrocyte sedimentation rate by Westergren method 7 mm/hr 0-30 Normal (applies to non-numeric results) [facility]) ID Date Data Source [id number] 10/05/2019 09:18:00 AM EDT [facility] ([facility]) Name Value Range Interpretation Code Description Data Aby rce(s) Supporting Document(s) Laboratory test finding (navigational concept) 4.98 10 4 .00-5.40 Normal (applies to non-numeric results) [facility] Laboratory test finding (navigational concept) 5.3 10 4 .0-10.0 Normal (applies to non-numeric results) [facility] ([facility]) Laboratory test finding (navigational concept) 15.0 g/dL 1 2.0-15.5 Normal (applies to non-numeric results) [facility] Laboratory test finding (navigational concept) 30.1 pg 2 7.0-33.0 Normal (applies to non-numeric results) [facility] Laboratory test finding (navigational concept) 47.3 % 3 6.0-47.0 Above high normal [facility] ([facility] ) Laboratory test finding (navigational concept) 95.0 fl 8 0.0-96.0 Normal (applies to non-numeric results) [facility] Laboratory test finding (navigational concept) 13.8 % 1 1.5-14.5 Normal (applies to non-numeric results) [facility] ([facility]) Laboratory test finding (navigational concept) 31.7 g/dL 3 2.0-36.5 Below low normal [facility] ([facility] ) Laboratory test finding (navigational concept) 271 10 1 50-450 Normal (applies to non-numeric results) [facility] [place]) Laboratory test finding (navigational concept) 49.4 % 3 6.0-66.0 Normal (applies to non-numeric results) [facility] ([facility]) Laboratory test finding (navigational concept) 8.1 % 0.0-5.0 Above high normal [facility] ([facility]) Laboratory test finding (navigational concept) 3.9 % 0.0-3.0 Above high normal [facility] ([facility]) Laboratory test finding (navigational concept) 37.5 % 2 4.0-44.0 Normal (applies to non-numeric results) [facility] ([facility]) Laboratory test finding (navigational concept) 0.7 % 0 .0-1.0 Normal (applies to non-numeric results) [facility] Laboratory test finding (navigational concept) 0.4 % 0 -3.0 Normal (applies to non-numeric results) [facility] Laboratory test finding (navigational concept) 0.0 % 0 -0 Normal (applies to non- numeric results) [facility] ([facility] ) Laboratory test finding (navigational concept) 2.6 10 1 .5-8.5 Normal (applies to non-numeric results) [facility] [place] Laboratory test finding (navigational concept) 2.0 10 1 .5-5.0 Normal (applies to non-numeric results) [facility] [place] Laboratory test finding (navigational concept) 0.4 10 0 .0-0.8 Normal (applies to non-numeric results) [facility]) Laboratory test finding (navigational concept) 0.2 10 0 .0-0.5 Normal (applies to non-numeric results) [facility]) Laboratory test finding (navigational concept) 0.0 10 0 .0-0.2 Normal (applies to non-numeric results) [facility] [place] Procedure Social History Code Duration Value Status Description Data Source(s ) Smoking 03/03/2020 12:00:00 AM EST Current Smoker completed Curre nt Smoker eCW1 ([facility]) Smoking 02/08/2020 12:00:00 AM EST Current Smoker completed Curre nt Smoker eCW1 ([facility]) Smoking 02/08/2020 12:00:00 AM EST Current Smoker completed Curre nt Smoker eCW1 ([facility]) Smoking 02/08/2020 12:00:00 AM EST Current Smoker completed Curre nt Smoker eCW1 ([facility]) Smoking 02/08/2020 12:00:00 AM EST Current Smoker completed Curre nt Smoker eCW1 ([facility]) Smoking 02/08/2020 12:00:00 AM EST Current Smoker completed Curre nt Smoker eCW1 ([facility]) Smoking 02/01/2020 12:00:00 AM EDT Current Smoker completed Curre nt Smoker eCW1 ([facility]) Smoking 02/01/2020 12:00:00 AM EDT Current Smoker completed Curre nt Smoker eCW1 ([facility]) Smoking 02/01/2020 12:00:00 AM EDT Current Smoker completed Curre nt Smoker eCW1 ([facility]) Smoking 09/05/2019 12:00:00 AM EDT Current Smoker completed Curre nt Smoker eCW1 ([facility]) Vital Signs ID Date Data Source UNK Name Value Range Interpretation Code Description Data Source(s) Diastolic blood pressure 80 mm[Hg] 80 mm[Hg] eCW1 ([facility]) Systolic blood pressure 120 mm[Hg] 120 mm[Hg] e CW1 ([facility]) Body temperature 96.4 [degF] 96.4 [degF] eCW1 ( [facility]) Respiratory rate 18 /min 18 /min eCW1 ([facility]) Heart rate 116 /min 116 /min eCW1 ([facility]) Body mass index (BMI) [Ratio] 26.12 kg/m2 26.12 kg/m2 W1 ([facility]) Body height [in_i] eCW1 ([facility]) Body weight 159.4 [lb_av] 159.4 [lb_av] eCW1 ([facility]) Body mass index (BMI) [Ratio] 25.1 kg/m2 25.1 k g/m2 [facility] ([facility]) Diastolic blood pressure 76 mm[Hg] 76 mm[Hg] [facility] ([facility]) Systolic blood pressure 111 mm[Hg] 111 mm[Hg] M EDENT ([facility]) Respiratory rate 18 /min 18 /min [facility] ( [facility]) Heart rate 94 /min 94 /min [facility] ([facility] Body height 67 [in_i] 67 [in_i] [facility] ([facility] 5'7" Body weight 160.12 [lb_av] 160.12 [lb_av] [facility] Diastolic blood pressure 82 mm[Hg] 82 mm[Hg] eCW1 ([facility]) Systolic blood pressure 130 mm[Hg] 130 mm[Hg] e CW1 ([facility]) Body temperature 97.1 [degF] 97.1 [degF] eCW1 ( [facility]) Respiratory rate 18 /min 18 /min eCW1 ([facility]) Heart rate 102 /min 102 /min eCW1 ([facility]) Body mass index (BMI) [Ratio] 26.28 kg/m2 26.28 kg/m2 W1 ([facility]) Body height [in_i] eCW1 ([facility]) Body weight 160.4 [lb_av] 160.4 [lb_av] eCW1 ([facility]) Body mass index (BMI) [Ratio] 24.3 kg/m2 24.3 k g/m2 [facility] ([facility]) Body height 67 [in_i] 67 [in_i] [facility] ([facility]) 5'7" Body weight 155.00 [lb_av] 155.00 [lb_av] MEDEN T ([facility], [facility]) Body temperature 98.2 [degF] 98.2 [degF] [facility] ([facility]) Oxygen saturation in Arterial blood by Pulse oximetry 92 % 92 % [facility] ([facility], [facility]) Respiratory rate 18 /min 18 /min [facility] ( [facility], [facility]) Heart rate 101 /min 101 /min [facility] ([facility] [place], [facility]) Diastolic blood pressure 76 mm[Hg] 76 mm[Hg] [facility] ([facility] [place], [facility]) Systolic blood pressure 112 mm[Hg] 112 mm[Hg] M EDENT ([facility] [place], [facility]) Body mass index (BMI) [Ratio] 23.5 kg/m2 23.5 k g/m2 [facility] ([facility]) Diastolic blood pressure 81 mm[Hg] 81 mm[Hg] [facility] ([facility]) Systolic blood pressure 119 mm[Hg] 119 mm[Hg] EDENT ([facility]) Respiratory rate 20 /min 20 /min [facility] ( [facility]) Heart rate 91 /min 91 /min [facility] ([facility] Body height 67 [in_i] 67 [in_i] [facility] ([facility] 5'7" Body weight 150.00 [lb_av] 150.00 [lb_av] MED[facility] T ([facility]) Body mass index (BMI) [Ratio] 23.4 kg/m2 23.4 k g/m2 [facility] ([facility]) Diastolic blood pressure 86 mm[Hg] 86 mm[Hg] [facility] ([facility]) Systolic blood pressure 140 mm[Hg] 140 mm[Hg] [facility] ([facility]) Respiratory rate 18 /min 18 /min [facility] ( [facility]) Heart rate 87 /min 87 /min [facility] ([facility] Body height 67 [in_i] 67 [in_i] [facility] ([facility] 5'7" Body weight 149.38 [lb_av] 149.38 [lb_av] [facility] T ([facility]) Body mass index (BMI) [Ratio] 25.7 kg/m2 25.7 k g/m2 [facility] ([facility]) Diastolic blood pressure 82 mm[Hg] 82 mm[Hg] [facility] ([facility]) Systolic blood pressure 139 mm[Hg] 139 mm[Hg] M EDENT ([facility]) Respiratory rate 20 /min 20 /min [facility] ( [facility]) Heart rate 101 /min 101 /min [facility] ([facility] Body height 64.5 [in_i] 64.5 [in_i] [facility] 5'4.50" Body weight 152.00 [lb_av] 152.00 [lb_av] [facility] T ([facility]) Diastolic blood pressure 68 mm[Hg] 68 mm[Hg] eCW1 ([facility]) Systolic blood pressure 108 mm[Hg] 108 mm[Hg] e CW1 ([facility]) Body temperature 97.5 [degF] 97.5 [degF] eCW1 ( [facility]) Respiratory rate 18 /min 18 /min eCW1 ([facility]) Heart rate 106 /min 106 /min eCW1 ([facility]) Body mass index (BMI) [Ratio] 24.61 kg/m2 24.61 kg/m2 W1 ([facility]) Body height [in_i] eCW1 ([facility]) Body weight 150.2 [lb_av] 150.2 [lb_av] eCW1 ([facility]) Diastolic blood pressure 74 mm[Hg] 74 mm[Hg] eCW1 ([facility]) Systolic blood pressure 118 mm[Hg] 118 mm[Hg] e CW1 ([facility]) Body temperature 97.7 [degF] 97.7 [degF] eCW1 ( [facility]) Respiratory rate 18 /min 18 /min eCW1 ([facility]) Heart rate 114 /min 114 /min eCW1 ([facility]) Body mass index (BMI) [Ratio] 23.89 kg/m2 23.89 kg/m2 eCW ([facility]) Body height [in_us] eCW1 ([facility]) Body weight Measured 145.8 [lb_av] 145.8 [lb_av ] eCW1 ([facility]) Diastolic blood pressure 72 mm[Hg] 72 mm[Hg] eCW1 ([facility]) Systolic blood pressure 118 mm[Hg] 118 mm[Hg] e CW1 ([facility]) Body temperature 96.2 [degF] 96.2 [degF] eCW1 ( [facility]) Respiratory rate 18 /min 18 /min eCW1 ([facility]) Heart rate 101 /min 101 /min eCW1 ([facility]) Body mass index (BMI) [Ratio] 24.22 kg/m2 24.22 kg/m2 eCW1 ([facility]) Body height [in_us] eCW1 ([facility]) Body weight Measured 147.8 [lb_av] 147.8 [lb_av ] eCW1 ([facility]) Body mass index (BMI) [Ratio] 24.7 kg/m2 24.7 k g/m2 [facility] ([facility], [facility]) Body height 67 [in_i] 67 [in_i] [facility] ([facility]) 5'7" Body weight 158.00 [lb_av] 158.00 [lb_av] MEDEN T ([facility], [facility]) Body temperature 98.5 [degF] 98.5 [degF] [facility] ([facility]) Oxygen saturation in Arterial blood by Pulse oximetry 92 % 92 % [facility] ([facility], [facility]) Respiratory rate 16 /min 16 /min [facility] ( [facility], [facility]) Heart rate 100 /min 100 /min [facility] ([facility], [facility]) Diastolic blood pressure 98 mm[Hg] 98 mm[Hg] [facility] ([facility], [facility]) Systolic blood pressure 130 mm[Hg] 130 mm[Hg] M EDENT ([facility], [facility]) Diastolic blood pressure 82 mm[Hg] 82 mm[Hg] eCW1 ([facility]) Systolic blood pressure 120 mm[Hg] 120 mm[Hg] e CW1 ([facility]) Body temperature 97.3 [degF] 97.3 [degF] eCW1 ( [facility]) Respiratory rate 18 /min 18 /min eCW1 ([facility]) Heart rate 107 /min 107 /min eCW1 ([facility]) Body mass index (BMI) [Ratio] 24.50 kg/m2 24.50 kg/m2 eCW1 ([facility]) Body height [in_us] eCW1 ([facility]) Body weight Measured 149.5 [lb_av] 149.5 [lb_av ] eCW1 ([facility]) Diastolic blood pressure 70 mm[Hg] 70 mm[Hg] eCW1 ([facility]) Systolic blood pressure 114 mm[Hg] 114 mm[Hg] e CW1 ([facility]) Body temperature 97.5 [degF] 97.5 [degF] eCW1 ( [facility]) Respiratory rate 18 /min 18 /min eCW1 ([facility]) Heart rate 106 /min 106 /min eCW1 ([facility]) Body mass index (BMI) [Ratio] 25.33 kg/m2 25.33 kg/m2 eCW1 ([facility]) Body height [in_us] eCW1 ([facility]) Body weight Measured 154.6 [lb_av] 154.6 [lb_av ] eCW1 ([facility]) Patient Treatment Plan of Care Planned Activity Planned Date Details Description Data Source (s) Prednisone 20 MG Oral Tablet 02/08/2020 12:00:00 AM EST eCW1 ([facility]) Prednisone 20 MG Oral Tablet 02/08/2020 12:00:00 AM EST eCW1 ([facility]) Prednisone 20 MG Oral Tablet 02/08/2020 12:00:00 AM EST eCW1 ([facility]) Prednisone 20 MG Oral Tablet 02/08/2020 12:00:00 AM EST eCW1 ([facility]) Prednisone 20 MG Oral Tablet 02/08/2020 12:00:00 AM EST eCW1 ([facility]) Levofloxacin 500 MG Oral Tablet 02/04/2020 12:00:00 AM EST eCW1 ([facility]) Levofloxacin 500 MG Oral Tablet 02/04/2020 12:00:00 AM EST eCW1 ([facility]) Natacha Allergy 180 MG 09/05/2019 12:00:00 AM EDT eCW1 ([facility]) Diclofenac Sodium 0.01 MG/MG Topical Gel 08/30/2019 12:00:00 AM EDT eCW1 ([facility]) Azelastine HCl 0.1 % 08/29/2019 12:00:00 AM EDT eCW1 ([facility]) Nicotine 2 MG Chewing Gum [Nicorette] 07/19/2019 12:00:00 AM EDT eCW1 ([facility]) Levofloxacin 750 MG Oral Tablet [Levaquin] 04/18/2019 12:00:[address] eCW1 ([facility]) 60 ACTUAT Fluticasone propionate 0.25 MG /ACTUAT / salmeterol 0.05 MG/ACTUAT Dry Powder Inhaler [Advair] 04/18/2019 12:00:00 AM EST eCW1 ([facility]) 60 ACTUAT Fluticasone propionate 0.25 MG /ACTUAT / salmeterol 0.05 MG/ACTUAT Dry Powder Inhaler [Advair] 04/18/2019 12:00:00 AM EST eCW1 ([facility]) Levofloxacin 750 MG Oral Tablet [Levaquin] 04/18/2019 12:00:[address] eCW1 ([facility])
[2020-04-15 02:50] LABS: BASO % 0.4 % (0.0-1.0); EOS # 0.2 10^3/uL (0.0-0.5); EOS % 2.5 % (0.0-3.0); HEMATOCRIT 44.9 % (36.0-47.0); HEMOGLOBIN 13.7 g/dl (12.0-15.5); LYMPH # 2.7 10^3/uL (1.5-5.0); LYMPH % 32.6 % (24.0-44.0); MEAN CORPUSCULAR HEMOGLOBIN 28.9 pg (27.0-33.0); MEAN CORPUSCULAR HGB CONC 30.5 g/dl (32.0-36.5); MEAN CORPUSCULAR VOLUME 94.7 fl (80.0-96.0); MONO # 0.7 10^3/uL (0.0-0.8); NEUTROPHILS # 4.7 10^3/uL (1.5-8.5); NEUTROPHILS % 56.4 % (36.0-66.0); PLATELET COUNT, AUTOMATED 263 10^3/uL (150-450); RED BLOOD COUNT 4.74 10^6/uL (4.00-5.40); WHITE BLOOD COUNT 8.3 10^3/uL (4.0-10.0)
[2020-04-15] MEDS ORDERED: methylPREDNISolone 125MG 2ML VIAL IV ONE (03:00)
[2020-04-15] MEDS ORDERED: COMBIVENT RESPIMAT 100-20MCG INHALER 4GM INH ONE (03:00)
--- OUTSIDE RECORDS SUMMARY | 2020-04-15 03:06 | CCD ---
Author Author [facility] Organization [facility] Address Unknown Phone Unavailable Care Team Providers Care Medicine Man Name Role Phone NOEMI YANG MD Unavailable [...] Unavailable Unavailable NOEMI YANG MD Unavailable Unavailable CHROSTOWSKI, NOEMI MD Unavailable [...] is protected by Article 27-F of the [facility] Public Health law. If you continue you may have access to information: Regarding HIV / AIDS; Provided by facilities licensed or operated by the [facility] Office of Mental Health; or Provided by the [facility] Office for People With Developmental Disabilities. If such information is present, then the following [facility] mandated warning applies: This information has [...] law may result in a fine or long-term sentence or both. A general authorization for the release of medical or other information is NOT sufficient authorization for further disc losure. Allergies and Adverse Reactions Type Description Substance Reaction Status Data Source(s ) Drug allergy Codeine Phosphate Drug allergy coma Active eCW 1 ([facility]) Drug allergy Singulair montelukast trouble breathing Active eCW 1 ([facility]) Drug allergy Keflex Cephalexin Hives Active eCW1 ([facility]) aspirin Aspirin Aspirin stomach pain Active eCW1 ([facility]) Drug allergy Ipratropium Hooker Ipratropium trouble breathing Activ e eCW1 ([facility]) tetracycline Tetracycline HCl Tetracycline Hives Active eCW1 ([facility]) strawberries strawberries strawberries Hives Active eCW1 ([facility]) yellow dye yellow dye yellow dye Hives Active eCW1 ([facility]) strawberries strawberries strawberries Hives Active eCW1 ([facility]) yellow dye yellow dye yellow dye Hives Active eCW1 ([facility]) strawberries strawberries strawberries Hives Active eCW1 ([facility]) yellow dye yellow dye yellow dye Hives Active eCW1 ([facility]) strawberries strawberries strawberries Hives Active eCW1 ([facility]) yellow dye yellow dye yellow dye Hives Active eCW1 ([facility]) Family History Family Member Name Family Member Gender Family Member Status Date o f Status Description Data Source(s) Unknown Unknown Problem MEDENT ([facility]) Unknown Male Problem MEDENT ([facility]) () - at age 80 Unknown Unknown Problem MEDENT ([facility] ) Unknown Unknown Problem MEDENT ([facility] ) Unknown Unknown Problem MEDENT ([facility] ) MGM colon ca-Dx in her 60's Encounters Encounter Providers Location Date Indications Data Source(s ) [place] [address] [facility] [address] 03/03/2020 12:00:00 AM EST eCW1 ([facility]) Unknown [address] [facility] [place] [address] 02/25/2020 12:00:00 AM EST eCW1 ([facility]) Unknown [address] [facility] [place] [address] 02/22/2020 12:00:00 AM EST eCW1 ([facility]) Unknown [address] [facility] [place] [address] 02/11/2020 12:00:00 AM EST eCW1 ([facility]) Outpatient [address] [facility] [place] [address] 02/08/2020 12:00:00 AM EST eCW1 ([facility]) Unknown [address] [facility] [place] [address] 02/07/2020 12:00:00 AM EST eCW1 ([facility]) Outpatient Attender: NOEMI YANG MD Main Office 02/04/2020 09:15:00 AM EST MEDENT ([facility]) Unknown [address] [facility] [address] [address] 02/04/2020 12:00:00 AM EST eCW1 ([facility]) Outpatient [address] [facility] [address] [address] 02/01/2020 12:00:00 AM EDT eCW1 ([facility]) Unknown [address] [facility] [place] [address] 02/01/2020 12:00:00 AM EDT eCW1 ([facility]) Outpatient Attender: Britt Henley MD Main office - [place] 01/17/2020 11:45:00 AM EDT MEDENT ([facility]) Outpatient Attender: Loli whitney 01/04/2020 03:00:00 PM EDT MEDENT ([facility] [place] [address] [facility] [address] 11/14/2019 12:00:00 AM EDT eCW1 ([facility]) Outpatient Attender: NOEMI YANG MD Main Office 11/02/2019 10:30:00 AM EDT MED[facility] ([facility]) Outpatient Attender: NOEMI YANG MD Main Office 10/29/2019 09:45:00 AM EDT MEDENT ([facility]) Outpatient Attender: NOEMI YANG MD Main Office 10/01/2019 08:45:00 AM EDT MEDENT ([facility]) [place] [address] [facility] [address] 09/05/2019 12:00:00 AM EDT eCW1 ([facility]) [facility] [place] [address] [facility] [address] 08/29/2019 12:00:00 AM EDT eCW1 ([facility]) [facility] [place] [address] [facility] [address] 07/25/2019 12:00:00 AM EDT eCW1 ([facility]) [facility] [place] [address] [facility] [address] 07/19/2019 12:00:00 AM EDT eCW1 ([facility]) Outpatient Attender: Britt Henley MD Main office - [place] 07/18/2019 11:45:00 AM EDT MEDENT ([facility]) [facility] [place] [address] [facility] [address] 07/02/2019 12:00:00 AM EDT eCW1 [facility] [address] [place] [address] [place] [address] 06/29/2019 12:00:00 AM EDT eCW1 [facility]) [facility] [address] [place] [address] Y [address] 06/14/2019 12:00:00 AM EDT [facility]CW1 [facility] [place] [address] [place] [address], [place] [address] 06/06/2019 12:00:00 AM EST eCW1 ([facility]) [facility] [place] [address] [place] [address] N [place] [address] 05/28/2019 12:00:00 AM EST eCW1 [facility]) [facility] [place] [address] [place] [address] N [place] [address] 05/09/2019 12:00:00 AM EST eCW1 [facility]) Outpatient Attender: MARVA Waddell 05/05/2019 03:00:00 PM EST MEDENT ([facility]) [facility] [place] [address] [place] [address], [place] [address] 04/24/2019 12:00:00 AM EST eCW1 [facility]) [facility] [place] [address] [place] [address] N [place] [address] 04/19/2019 12:00:00 AM EST eCW1 ([facility]) [facility] [place] [address] [place] [address] N [place] [address] 04/18/2019 12:00:00 AM EST eCW1 ([facility]) [facility] [place] [address] [place] [address] N [place] [address] 03/23/2019 12:00:00 AM EST eCW1 [facility] [place] [address] [place] [address] N [place] [address] 02/15/2019 12:00:00 AM EST eCW1 ([facility]) Immunizations Vaccine Date Status Description Data Source(s) pneumococcal polysaccharide PPV23 11/14/2019 10:14:00 AM EDT comple claudia eCW1 ([facility]) pneumococcal polysaccharide PPV23 11/14/2019 10:14:00 AM EDT comple claudia eCW1 ([facility]) pneumococcal polysaccharide PPV23 11/14/2019 10:14:00 AM EDT comple claudia eCW1 ([facility]) pneumococcal polysaccharide PPV23 11/14/2019 10:14:00 AM EDT comple claudia eCW1 ([facility]) pneumococcal polysaccharide PPV23 11/14/2019 10:14:00 AM EDT comple claudia eCW1 ([facility]) pneumococcal polysaccharide PPV23 11/14/2019 10:14:00 AM EDT comple claudia eCW1 ([facility]) pneumococcal polysaccharide PPV23 11/14/2019 10:14:00 AM EDT comple claudia eCW1 ([facility]) pneumococcal polysaccharide PPV23 11/14/2019 10:14:00 AM EDT comple claudia eCW1 ([facility]) pneumococcal polysaccharide PPV23 11/14/2019 10:14:00 AM EDT comple claudia eCW1 ([facility]) Medications Medication Brand Name Start Date Product [...] EST active PredniSO NE 20 MG eCW1 ([facility]) Prednisone 20 MG Oral Tablet PredniSONE 20 MG PredniSONE 20 MG 02/08/2020 12:00:00 AM EST active PredniSO NE 20 MG eCW1 ([facility]) Prednisone 20 MG Oral Tablet PredniSONE 20 MG PredniSONE 20 MG 02/08/2020 12:00:00 AM EST active PredniSO NE 20 MG eCW1 ([facility]) Prednisone 20 MG Oral Tablet PredniSONE 20 MG PredniSONE 20 MG 02/08/2020 12:00:00 AM EST active PredniSO NE 20 MG eCW1 ([facility]) Prednisone 20 MG Oral Tablet PredniSONE 20 MG PredniSONE 20 MG 02/08/2020 12:00:00 AM EST active PredniSO NE 20 MG eCW1 ([facility]) 20 mg 02/08/2020 12:00:00 AM EST tablet [...] EST active PredniSO NE 20 MG eCW1 ([facility]) 10 mg 02/07/2020 12:00:00 AM EST tablet [...] MEDENT ( [facility]) Levofloxacin 500 MG Oral Tablet Levofloxacin 500 MG 02/04/2020 1 2:00:00 AM EST 1.0 {tablet} active Levofloxaci n 500 MG eCW1 ([facility]) Levofloxacin 500 MG Oral Tablet Levofloxacin 500 MG 02/04/2020 1 2:00:00 AM EST 1.0 {tablet} active Levofloxaci n 500 MG eCW1 ([facility]) Levofloxacin 500 MG Oral Tablet Levofloxacin 500 MG 02/04/2020 1 2:00:00 AM EST 1.0 {tablet} active Levofloxaci n 500 MG eCW1 ([facility]) Levofloxacin 500 MG Oral Tablet Levofloxacin 500 MG 02/04/2020 1 2:00:00 AM EST 1.0 {tablet} active Levofloxaci n 500 MG eCW1 ([facility]) Levofloxacin 500 MG Oral Tablet Levofloxacin 500 MG 02/04/2020 1 2:00:00 AM EST 1.0 {tablet} active Levofloxaci n 500 MG eCW1 ([facility]) 500 mg 02/04/2020 12:00:00 AM EST tablet 7 TAKE ONE TABLET BY MOUTH ONCE A DAY FOR 7 DAYS TAKE ONE TABLET BY MOUTH ONCE A DAY FOR 7 DAYS SOLD: 020 [facility] Levofloxacin 500 MG Oral Tablet Levofloxacin 500 MG 02/04/2020 1 2:00:00 AM EST 1.0 {tablet} active Levofloxaci n 500 MG eCW1 ([facility]) Levofloxacin 500 MG Oral Tablet Levofloxacin 500 MG 02/04/2020 1 2:00:00 AM EST 1.0 {tablet} active Levofloxaci n 500 MG eCW1 ([facility]) Levofloxacin 500 MG Oral Tablet Levofloxacin 500 MG 02/04/2020 1 2:00:00 AM EST 1.0 {tablet} active Levofloxaci n 500 MG eCW1 ([facility]) 100 mg 01/18/2020 12:00:00 AM EDT capsule [...] 12:00:00 AM EDT ORAL active MEDENT ([facility]) Tolnaftate 10 MG/ML Topical Cream Tolnaftate 01/04/2020 12:00:00 AM EDT active MEDENT ([facility]) 0.02 % 12/17/2019 12:00:00 AM EDT solution [...] MEDENT ([facility]) 75 mg 10/05/2019 12:00:00 AM EDT [...] TIMES A DAY NEEDED SOLD: 10/14/2019 [facility] 180 MG [facility] 180 MG 09/05/2019 12:00:00 A M EDT 1.0 {tablet_as_needed} active Natacha Aller gy 180 MG eCW1 ([facility]) 90 mcg/actuation 09/05/2019 12:00:00 AM EDT HFA [...] FOUR TIMES A DAY SOLD: 09/02/2019 [facility] Diclofenac Sodium 0.01 MG/MG Topical Gel Diclofenac So dium 1 % Diclofenac Sodium 1 % 08/30/2019 12:00:00 AM EDT active Diclofenac Sodium 1 % eCW1 ([facility]) 137 mcg (0.1 %) 08/30/2019 12:00:00 AM EDT aerosol,spray 30 SPRAY ONE SPRAY IN EACH NOSTRIL TWICE A DAY SPRAY ONE SPRAY IN EACH NOSTRIL TWICE A DAY SOLD: 09/02/2019 [facility] Diclofenac Sodium 0.01 MG/MG Topical Gel Diclofenac So dium 1 % Diclofenac Sodium 1 % 08/30/2019 12:00:00 AM EDT active to back and hips eCW1 ([facility]) Azelastine HCl 0.1 % Azelastine HCl 0.1 % 08/29/2019 12:00:00 AM EDT active 1 puff in each nostril eCW1 ([facility]) Azelastine HCl 0.1 % Azelastine HCl 0.1 % 08/29/2019 12:00:00 AM ED T 1.0 {puff_in_each_nostril} suspended Azelast ine HCl 0.1 % eCW1 ([facility]) 60 mg 08/08/2019 12:00:00 AM EDT capsule,biphase [...] EDT active Nicorett e 2 MG eCW1 ([facility]) Nicotine 2 MG Chewing Gum [Nicorette] Nicorette 2 MG Nicoret te 2 MG 07/19/2019 12:00:00 AM EDT active 1 piece for 30 minute as needed eCW1 ([facility]) 20 mg 06/30/2019 12:00:00 AM EDT tablet 20 TAKE 3 TABLETS BY MOUTH DAILY ON DAYS 1-3, THEN TAKE 2 DAILY ON DAYS 4-7, THEN TAKE 1 DAILY ON DAYS 8-10 TAKE 3 TABLETS BY MOUTH DAILY ON DAYS 1-3, THEN TAKE 2 DAILY ON DAYS 4-7, THEN TAKE 1 DAILY ON DAYS 8-10 SOLD: 07/03/2019 [facility] 750 mg 06/20/2019 12:00:00 AM EDT [...] ORAL active MEDENT ([facility]) Clarithromycin 500 MG Oral Tablet Clarithromycin 05/05/2019 12:00:00 AM EST ORAL active MEDENT ([facility]) 20 mg 05/05/2019 12:00:00 AM EST tablet 8 TAKE ONE TABLET BY MOUTH TWO TIMES A DAY FOR 4 DAYS TAKE ONE TABLET BY MOUTH TWO TIMES A DAY FOR 4 DAYS SO LD: 05/06/2019 [facility] 500 mg 05/05/2019 12:00:00 AM EST tablet 14 TAKE ONE TABLET BY MOUTH EVERY 12 HOURS FOR 7 DAYS TAKE ONE TABLET BY MOUTH EVERY 12 HOURS FOR 7 DAYS ERIN [facility] 250-50 mcg/dose 04/20/2019 12:00:00 AM EST blister with jayla ce 60 INHALE ONE PUFF BY MOUTH TWICE A DAY INHALE ONE PUFF BY MOUTH TWICE A DAY SOLD: 04/25/2019 [facility] Levofloxacin 750 MG Oral Tablet [Levaquin] Levaquin 750 MG L evaquin 750 MG 04/18/2019 12:00:00 AM EST suspended 1 tablet eCW1 ([facility]) 60 ACTUAT Fluticasone propionate 0.25 MG /ACTUAT / salmeterol 0.05 MG/ACTUAT Dry Powder Inhaler [Advair] Advair Diskus 250-50 MCG/DOSE Advair Diskus 250-50 MCG/DOSE 04/18/2019 12:00:00 AM EST suspended 1 puff eCW1 ([facility]) 60 ACTUAT Fluticasone propionate 0.25 MG /ACTUAT / salmeterol 0.05 MG/ACTUAT Dry Powder Inhaler [Advair] Advair Diskus 250-50 MCG/DOSE Advair Diskus 250-50 MCG/DOSE 04/18/2019 12:00:00 AM EST 1.0 {puff} activ e Advair Diskus 250-50 MCG/DOSE eCW1 ([facility]) Levofloxacin 750 MG Oral Tablet [Levaquin] Levaquin 750 MG L evaquin 750 MG 04/18/2019 12:00:00 AM EST suspended 1 tablet eCW1 ([facility]) 60 ACTUAT Fluticasone propionate 0.25 MG /ACTUAT / salmeterol 0.05 MG/ACTUAT Dry Powder Inhaler [Advair] Advair Diskus 250-50 MCG/DOSE Advair Diskus 250-50 MCG/DOSE 04/18/2019 12:00:00 AM EST active 1 puff eCW1 ([facility]) Levofloxacin 750 MG Oral Tablet [Levaquin] Levaquin 750 MG L evaquin 750 MG 04/18/2019 12:00:00 AM EST active 1 tablet eCW1 ([facility]) 750 mg 04/18/2019 12:00:00 AM EST tablet 5 TAKE ONE TABLET BY MOUTH EVERY DAY FOR 5 DAYS TAKE ONE TABLET BY MOUTH EVERY DAY FOR 5 DAYS SOLD: 04/18/2019 [facility] Levofloxacin 750 MG Oral Tablet [Levaquin] Levaquin 750 MG L evaquin 750 MG 04/18/2019 12:00:00 AM EST 1.0 {tablet} active Levaquin 750 MG eCW1 ([facility]) 60 ACTUAT Fluticasone propionate 0.25 MG /ACTUAT / salmeterol 0.05 MG/ACTUAT Dry Powder Inhaler [Advair] Advair Diskus 250-50 MCG/DOSE Advair Diskus 250-50 MCG/DOSE 04/18/2019 12:00:00 AM EST suspended 1 puff eCW1 ([facility]) 10 mg 03/09/2019 12:00:00 AM EST tablet [...] type / Coverage type Policy ID Covered democrat ID Covered democrat's relationship to king Policy King Plan Information [facility] [id number] SP [id number] EMEDNY [id number] SP [id number] MEDICARE COMPLETE [id number] SP [id number] [facility](MCAID) O [id number] S [id number] MEDICAID M [id number] S [id number] UNHC COMMUNITY PLAN MCDO [id number] SP [id number] MEDICARE [id number] SP [id number] MEDICAID [id number] SP [id number] MEDICARE C [id number] S [id number] ANS-Medicaid [id number] ANS-Medicare Part B [id number] ANS-Medicaid [id number] ANS-Medicaid [id number] ANS-Medicaid [id number] ANS-Medicare Part B [id number] ANS-Medicaid [id number] ANSI-Medicaid [id number] ANSI-Medicare Part B [id number] ANSI-Medicare Part B [id number] ANSI-Medicaid [id number] ANSI-Medicaid [id number] ANSI-Medicare Part B [id number] ANSI-Medicare Part B [id number] ANSI-Medicaid [id number] ANSI-Medicare Part B [id number] ANSI-Medicaid [id number] ANSI-Medicaid [id number] ANSI-Medicaid [id number] ANSI-Medicaid [id number] ANSI-Medicaid [id number] [facility] [id number] ANSI-Medicaid [id number] ANSI-Medicaid [id number] ANSI-Medicaid [id number] ANSI-Medicaid [id number] ANSI-Medicaid [id number] Medicare Natl Gov't Servi Medicare Primary [id number] Self [id number] [facility] Health Maintenance Organization (O) [id number] Self [id number] Medicare Natl Gov't Servi Medicare Primary [id number] Self [id number] [facility] O [id number] S [id number] ANSI-Medicaid [id number] ANSI-Medicaid [id number] Medicaid [place] Medigap Part B [id number] Self [id number] Blue [facility]/Medicaid Health Maintenance Organization (HMO) [id number] Self [id number] [facility] Health Maintenance Organization (HMO) [id number] [facility] Health Maintenance Organization (O) [id number] Self [id number] ANSI-Medicaid [id number] ANSI-Medicaid [id number] ANSI-Medicaid [id number] ANSI-Medicaid [id number] ANSI-Medicaid [id number] [facility] [id number] SP [id number] [facility] Health Maintenance Organization (O) [id number] Self [id number] [place] Med[place] Part [place] [id number] Self [id number] Hmo Blue Option/Medicaid Health Maintenance Organization (HMO) [id number] Self [id number] [place] Med[place]ap Part [place] [id number] Self [id number] Hmo Blue Option/Medicaid Health Maintenance Organization (HMO) [id number] Self [id number] [place] Medigap Part B [id number] Self [id number] Hmo Blue Option/Medicaid Health Maintenance Organization (HMO) [id number] Self [id number] UNHC COMMUNITY PLAN MCDO [id number] SP [id number] [facility] Community Plan Commercial [id number] Self [id number] United[employer] Care Hmo Commercial [id number] Self [id number] [facility] Hmo Commercial [id number] Self [id number] [facility] Hmo Commercial Self UNHC COMMUNITY PLAN MCDO [id number] SP [id number] [place] Med[place]ap Part B Self Hmo Blue Option/Medicaid Health Maintenance Organization (HMO) 302/802 Self [id number] [facility] Health Maintenance Organization (HMO) [facility] (HMO) Self BLUE CROSS ALCANTARA PLAN [id number] SP [id number] UNHC AMERICHOICE XIX HMO [id number] 18 [id number] BLUE CROSS BLUE SHIELD-O/P [id number] 18 [id number] [employer]BS P [id number] S [id number] BLUE CROSS BLUE SHIELD-CLINIC [id number] 18 [id number] [employer]BS P UNAVAILABLE S UNAV AILABLE HMO BLUE [id number] SP [id number] P UNAVAILABLE UNAVAILA BLE Problems, Conditions, and Diagnoses Code Display Name Description Problem Type Effective Dates Data Source(s) J32.9 24139861 Chronic sinusitis, unspecified location P balbir 02/08/2020 12:00:00 AM EST eCW1 ([facility]) 32429000 Cervico-occipital neuralgia Cervico-occipital neuralgi a Problem 01/17/2020 12:00:00 AM EDT MEDENT ([facility] ) [id number] Allergic rhinitis due to house dust mite Allergic rhinitis due to house dust mite Problem 11/02/2019 12:00:00 AM EDT MEDENT ([facility]) Note: 2+ reaction to dust mites on intra dermal test. Completed 2019. 82489861 Allergic rhinitis due to animals Allergic rhinit is due to animals Problem 11/02/2019 12:00:00 AM EDT [facility] ([facility]) Note: 3+ reaction to cat dander on intr adermal test. Completed 2019. [id number] Chronic sinusitis Chronic sinusitis Problem 10/01/2019 12:00:00 AM EDT [facility] ([facility]) [id number] Immunodeficiency disorder Immunodeficiency disorder Pr oblem 10/01/2019 12:00:00 AM EDT [facility] ([facility] ) Adverse effect of penicillins, initial e ncounter Adverse effect of penicillins, initial encounter Problem 10/01/2019 12:00:00 AM EDT ME D[facility] ([facility]) [id number] Chronic obstructive lung disease Chronic obstruc tive lung disease Problem 10/01/2019 12:00:00 AM EDT [facility] ([facility]) J30.89 [id number] Non-seasonal allergic rhinitis, unspecifi ed trigger Problem 09/05/2019 12:00:00 AM EDT eCW1 ([facility]) F17.218 [id number] Cigarette nicotine d ependence with other nicotine- induced disorder Problem 07/19/2019 12:00:00 AM EDT [facility] F17.218 [id number] Cigarette nicotine d ependence with other nicotine- induced disorder Problem 07/19/2019 12:00:00 AM EDT [facility] Surgeries/Procedures Procedure Description Date Indications Data Source(s) BRNCDILAT RSPSE SPMTRY PRE&POST-BRNCDILAT ADMN 020 12:00:00 AM EST [facility] ([facility]) CHEMODNRVTJ MUSC MUSC INNERVATED FACIAL NRV 11/23/2019 12:00:00 AM EDT [facility] ([facility]) PERCUTANEOUS TESTS W/ALLERGENIC EXTRACTS 11/02/2019 [...] [facility] ([facility] [place] [facility] NRV 08/23/2019 12:00:00 AM EDT [facility] ([facility], ) Office Visit, Est Pt., Level 2 FC 07/19/2019 12:00:00 AM EDT eCW1 ([facility]) Office Visit, Est Pt., Level 4 PC 07/19/2019 12:00:00 AM EDT eCW1 ([facility]) Office Visit, Est Pt., Level 3 PC 05/28/2019 12:00:00 AM EST eCW1 ([facility]) [facility] INNERV[facility] FACIAL NRV 05/24/2019 12:00:00 AM EST MEDENT ([facility], ) [facility] INNERVATED FACIAL NRV 02/16/2019 12:00:00 AM EST MEDENT ([facility], ) Results ID Date Data Source [id number] 12/21/2019 08:37:00 AM EDT MEDENT ([facility] [...] and its perform ance characteristics determined by [facility]. It has not been cleared or approved by the U.S. Food and Drug Administration. Performed at: [facility] [address] [place] [address] [id number] Velvet Cutter: Jessica Nolan PhD, Phone: [phone] Laboratory test finding (navigational concept) 12.4 ug/mL Normal (applies to non-numeric results) MEDENT ([facility]) Laboratory test finding (navigational concept) 15.9 ug/mL Normal (applies to non-numeric results) MED[facility] ([facility]) ID Date Data Source [id number] 10/05/2019 09:18:00 AM EDT MEDENT ([facility] [...] and its perform ance characteristics determined by [employer]. It has not been cleared or approved by the U.S. Food and Drug Administration. Laboratory test finding (navigational concept) 2.1 ug/mL Normal (applies to non-numeric results) MED[facility] ([facility]) Laboratory test finding (navigational concept) 0.4 ug/mL Below low normal MED[facility] ([facility]) ID Date Data Source [id number] 10/05/2019 09:18:00 AM EDT MEDENT ([facility]van n[facility] [...] for research purposes</content>
<content>only by the assay's distributor publications. The performance</content>
<content>characteristics of this product have not been</content>
<content>established. Results should not be used as a</c ontent>
<content>diagnostic procedure without confirmation of the</content>
<content>diagnosis by another medically established diagnostic</content>
<content>product or procedure.</content>
<content> Performed at: [email or web address]</content>
<content>[address] [place], [place] [id number]</content>
<content>Velvet Cutter: Jessica Nolan PhD, Phone: [phone]</content>
<content> Performed at: [facility]</content>
<content>[address] [place] [phone]</content>
<content>Velvet Cutter: Rickie Barker MD, Phone: [phone]</content>
<content></content> Rubella virus IgG Ab [Units/volume] in [...] > 10.00 IU/ML ID Date Data Source [id number] 10/05/2019 09:18:00 AM EDT MEDENT ([facility] [...] llergy of [place]) ID Date Data Source [id number] 10/05/2019 09:18:00 AM EDT MEDENT ([facility] n[facility] [...] Little GFR Left</content>
<content>ESRD GFR <15 on VAT OVERHAULER</content>
<content></content> Laboratory test finding (navigational concept) 4.6 [...] [place]) Laboratory test finding (navigational concept) 6 meq/L [...] o f [place]) ID Date Data Source [id number] 10/05/2019 09:18:00 AM EDT MEDENT ([facility]) Name Value Range Interpretation Code Description Data Aby rce(s) Supporting Document(s) Erythrocyte sedimentation rate by Westergren method 7 mm/hr 0-30 Normal (applies to non-numeric results) [facility] ([facility] [place]) ID Date Data Source [id number] 10/05/2019 09:18:00 AM EDT MEDENT ([facility] [...] [place]) Laboratory test finding (navigational concept) 0.4 10 0 .0-0.8 Normal (applies to non-numeric results) [facility] ([facility]) Laboratory test finding (navigational concept) 0.2 10 0 .0-0.5 Normal (applies to non-numeric results) [facility] ([facility]) Laboratory test finding (navigational concept) 0.0 10 0 .0-0.2 Normal (applies to non-numeric results) [facility] ([facility]) Procedure Social History Code Duration Value Status Description Data Source(s ) Smoking 03/03/2020 12:00:00 AM EST Current Smoker completed [place] Smoker eCW1 ([facility]) Smoking 02/08/2020 12:00:00 AM EST Current Smoker completed Curre nt Smoker eCW1 ([facility]) Smoking 02/08/2020 12:00:00 AM EST Current Smoker completed Curre nt Smoker eCW1 ([facility]) Smoking 02/08/2020 12:00:00 AM EST Current Smoker completed Curre nt Smoker eCW1 ([facility]) Smoking 02/08/2020 12:00:00 AM EST Current Smoker completed Curre nt Smoker eCW1 ([facility]) Smoking 02/08/2020 12:00:00 AM EST Current Smoker completed Curre nt Smoker eCW1 ([facility]) Smoking 02/01/2020 12:00:00 AM EDT Current Smoker completed Curre nt Smoker eCW1 ([facility]) Smoking 02/01/2020 12:00:00 AM EDT Current Smoker completed Curre nt Smoker eCW1 ([facility]) Smoking 02/01/2020 12:00:00 AM EDT Current Smoker completed Curre nt Smoker eCW1 ([facility]) Smoking 09/05/2019 12:00:00 AM EDT Current Smoker completed Curre nt Smoker eCW1 ([facility]) Vital Signs ID Date Data Source UNK Name Value Range Interpretation Code Description Data Source(s) Diastolic blood pressure 80 mm[Hg] 80 mm[Hg] eCW1 ([facility]) Systolic blood pressure 120 mm[Hg] 120 mm[Hg] e CW1 ([facility]) Body temperature 96.4 [degF] 96.4 [degF] eCW1 ( [facility]) Respiratory rate 18 /min 18 /min eCW1 ([facility]) Heart rate 116 /min 116 /min eCW1 ([facility]) Body mass index (BMI) [Ratio] 26.12 kg/m2 26.12 kg/m2 W1 ([facility]) Body height [in_i] [facility] Body weight 159.4 [lb_av] 159.4 [lb_av] eCW1 ([facility]) Body mass index (BMI) [Ratio] 25.1 kg/m2 [...] blood pressure 82 mm[Hg] 82 mm[Hg] eCW1 ([facility]) Systolic blood pressure 130 mm[Hg] 130 mm[Hg] e CW1 ([facility]) Body temperature 97.1 [degF] 97.1 [degF] eCW1 ( [facility]) Respiratory rate 18 /min 18 /min eCW1 ([facility]) Heart rate 102 /min 102 /min eCW1 ([facility]) Body mass index (BMI) [Ratio] 26.28 kg/m2 26.28 kg/m2 W1 ([facility]) Body height [in_i] eCW[facility] Body weight 160.4 [lb_av] 160.4 [lb_av] eCW1 ([facility]) Body mass index (BMI) [Ratio] 24.3 kg/m2 24.3 k g/m2 MEDENT ([facility]) Body height 67 [in_i] 67 [in_i] MEDENT ([facility]) 5'7" Body weight 155.00 [lb_av] 155.00 [lb_av] MEDEN T ([facility]) Body temperature 98.2 [degF] 98.2 [degF] MEDENT ([facility]) Oxygen saturation in Arterial blood by Pulse oximetry 92 % 92 % MEDENT ([facility], [facility]) Respiratory rate 18 /min 18 /min MEDENT ( [facility]) Heart rate 101 /min 101 /min MEDENT ([facility]) Diastolic blood pressure 76 mm[Hg] 76 mm[Hg] MEDENT ([facility]) Systolic blood pressure 112 mm[Hg] 112 mm[Hg] M EDENT ([facility], [facility]) Body mass index (BMI) [Ratio] 23.5 kg/m2 23.5 k g/m2 MED[facility] ([facility]) Diastolic blood pressure 81 mm[Hg] 81 mm[Hg] MEDENT ([facility]) Systolic blood pressure 119 mm[Hg] 119 mm[Hg] M EDENT ([facility] [...] Systolic blood pressure 140 mm[Hg] 140 mm[Hg] M EDENT ([facility]) Diastolic blood pressure 68 mm[Hg] 68 mm[Hg] eCW1 ([facility]) Systolic blood pressure 108 mm[Hg] 108 mm[Hg] e CW1 ([facility]) Body temperature 97.5 [degF] 97.5 [degF] eCW1 ( [facility]) Respiratory rate 18 /min 18 /min eCW1 ([facility]) Heart rate 106 /min 106 /min eCW1 ([facility]) Body mass index (BMI) [Ratio] 24.61 kg/m2 24.61 kg/m2 W1 ([facility]) Body height [in_i] [facility]CW[facility] Body weight 150.2 [lb_av] 150.2 [lb_av] eCW1 ([facility]) Diastolic blood pressure 74 mm[Hg] 74 mm[Hg] eCW1 ([facility]) Systolic blood pressure 118 mm[Hg] 118 mm[Hg] e CW1 ([facility]) Body temperature 97.7 [degF] 97.7 [degF] eCW1 ( [facility]) Respiratory rate 18 /min 18 /min eCW1 ([facility]) Heart rate 114 /min 114 /min eCW1 ([facility]) Body mass index (BMI) [Ratio] 23.89 kg/m2 23.89 kg/m2 eCW1 ([facility]) Body height [in_us] [facility]CW[facility] Body weight Measured 145.8 [lb_av] 145.8 [lb_av ] eCW1 ([facility]) Diastolic blood pressure 72 mm[Hg] 72 mm[Hg] eCW1 ([facility]) Systolic blood pressure 118 mm[Hg] 118 mm[Hg] e CW1 ([facility]) Body temperature 96.2 [degF] 96.2 [degF] eCW1 ( [facility]) Respiratory rate 18 /min 18 /min eCW1 ([facility]) Heart rate 101 /min 101 /min eCW1 ([facility]) Body mass index (BMI) [Ratio] 24.22 kg/m2 24.22 kg/m2 eCW1 ([facility]) Body height [in_us] [facility]CW[facility] Body weight Measured 147.8 [lb_av] 147.8 [lb_av ] eCW1 ([facility]) Body mass index (BMI) [Ratio] 24.7 kg/m2 24.7 k g/m2 MEDENT ([facility]) Body height 67 [in_i] 67 [in_i] MEDENT ([facility]) 5'7" Body weight 158.00 [lb_av] 158.00 [lb_av] MEDEN T ([facility], [facility]) Body temperature 98.5 [degF] 98.5 [degF] MEDENT ([facility]) Oxygen saturation in Arterial blood by Pulse oximetry 92 % 92 % MEDENT ([facility]) Respiratory rate 16 /min 16 /min MEDENT ( [facility]) Heart rate 100 /min 100 /min MEDENT ([facility], [facility]) Diastolic blood pressure 98 mm[Hg] 98 mm[Hg] MEDENT ([facility]) Systolic blood pressure 130 mm[Hg] 130 mm[Hg] M EDENT ([facility]) Diastolic blood pressure 82 mm[Hg] 82 mm[Hg] eCW1 ([facility]) Systolic blood pressure 120 mm[Hg] 120 mm[Hg] e CW1 ([facility]) Body temperature 97.3 [degF] 97.3 [degF] eCW1 ( [facility]) Respiratory rate 18 /min 18 /min eCW1 ([facility]) Heart rate 107 /min 107 /min eCW1 ([facility]) Body mass index (BMI) [Ratio] 24.50 kg/m2 24.50 kg/m2 eCW1 ([facility]) Body height [in_us] [facility]CW[facility] Body weight Measured 149.5 [lb_av] 149.5 [lb_av ] eCW1 ([facility]) Diastolic blood pressure 70 mm[Hg] 70 mm[Hg] eCW1 ([facility]) Systolic blood pressure 114 mm[Hg] 114 mm[Hg] e CW1 ([facility]) Body temperature 97.5 [degF] 97.5 [degF] eCW1 ( [facility]) Respiratory rate 18 /min 18 /min eCW1 ([facility]) Heart rate 106 /min 106 /min eCW1 ([facility]) Body mass index (BMI) [Ratio] 25.33 kg/m2 25.33 kg/m2 eCW1 ([facility]) Body height [in_us] [facility]CW[facility] Body weight Measured 154.6 [lb_av] 154.6 [lb_av ] eCW1 ([facility]) Patient Treatment Plan of Care Planned Activity Planned Date Details Description Data Source (s) Prednisone 20 MG Oral Tablet 02/08/2020 12:00:00 AM EST eCW1 ([facility]) Prednisone 20 MG Oral Tablet 02/08/2020 12:00:00 AM EST eCW1 ([facility]) Prednisone 20 MG Oral Tablet 02/08/2020 12:00:00 AM EST eCW1 ([facility]) Prednisone 20 MG Oral Tablet 02/08/2020 12:00:00 AM EST eCW1 ([facility]) Prednisone 20 MG Oral Tablet 02/08/2020 12:00:00 AM EST eCW1 ([facility]) Levofloxacin 500 MG Oral Tablet 02/04/2020 12:00:00 AM EST eCW1 ([facility]) Levofloxacin 500 MG Oral Tablet 02/04/2020 12:00:00 AM EST eCW1 ([facility]) Natacha Allergy 180 MG 09/05/2019 12:00:00 AM EDT eCW1 ([facility]) Diclofenac Sodium 0.01 MG/MG Topical Gel 08/30/2019 12:00:00 AM EDT eCW1 ([facility]) Azelastine HCl 0.1 % 08/29/2019 12:00:00 AM EDT eCW1 ([facility]) Nicotine 2 MG Chewing Gum [Nicorette] 07/19/2019 12:00:00 AM EDT eCW1 ([facility]) Levofloxacin 750 MG Oral Tablet [Levaquin] 04/18/2019 12:00:[address] eCW1 ([facility]) 60 ACTUAT Fluticasone propionate 0.25 MG /ACTUAT / salmeterol 0.05 MG/ACTUAT Dry Powder Inhaler [Advair] 04/18/2019 12:00:00 AM EST eCW1 ([facility]) 60 ACTUAT Fluticasone propionate 0.25 MG /ACTUAT / salmeterol 0.05 MG/ACTUAT Dry Powder Inhaler [Advair] 04/18/2019 12:00:00 AM EST eCW1 ([facility]) Levofloxacin 750 MG Oral Tablet [Levaquin] 04/18/2019 12:00:[address] eCW1 ([facility])
[2020-04-15 03:07] LABS: INR 0.95; PROTHROMBIN TIME 12.9 SECONDS (12.5-14.3)
[2020-04-15 03:26] LABS: ALBUMIN 3.1 GM/DL (3.2-5.2); ALT/SGPT 35 U/L (12-78); BILIRUBIN,DIRECT < 0.1 MG/DL (0.0-0.2); BILIRUBIN,TOTAL 0.3 MG/DL (0.2-1.0); BLOOD UREA NITROGEN 14 MG/DL (7-18); CALCIUM LEVEL 7.2 MG/DL (8.8-10.2); CARBON DIOXIDE LEVEL 27 MEQ/L (21-32); CHLORIDE LEVEL 113 MEQ/L (98-107); CK-MB VALUE MASS 4.2 NG/ML (<3.6); CPK CREATINE PHOSPHOKINASE 183 U/L (26-192); CREATININE FOR GFR 0.68 MG/DL (0.55-1.30); GLOMERULAR FILTRATION RATE > 60.0 (>45); GLUCOSE, FASTING 92 MG/DL (70-100); NT-PRO BNP 22 PG/ML (<125); POTASSIUM SERUM 3.4 MEQ/L (3.5-5.1); SODIUM LEVEL 146 MEQ/L (136-145); TOTAL PROTEIN 5.4 GM/DL (6.4-8.2); TROPONIN I < 0.02 NG/ML (< 0.10)
[2020-04-15] MEDS ORDERED: POTASSIUM CHLORIDE 10 MEQ SR TABLET PO ONE (03:30)
[2020-04-15] MEDS ORDERED: IPRATROPIUM 0.5MG/ALBUTEROL 2.5MG INH SOL UD 3ML (DUONEB) NEB ONE ×3 (03:30→06:30)
--- NOTE | 2020-04-15 04:23 | REPVR ---
PROCEDURE INFORMATION: Exam: XR Chest, 2 Views Exam date and time: 04/15/2020 3:54 AM Age: 64 years old Clinical indication: Shortness of breath; Additional info: SOB TECHNIQUE: Imaging protocol: XR of the chest Views: 2 views. COMPARISON: CR PORTABLE CHEST X-RAY 06/30/2019 1:09 PM FINDINGS: Lungs: There are bilateral lower lung zones linear atelectatic lung changes. Pleural space: Unremarkable. No pleural effusion. No pneumothorax. Heart/Mediastinum: There is mild aortic knob calcifications. No cardiomegaly. Bones/joints: Unremarkable. IMPRESSION: 1. No focal consolidation. 2. Bilateral lower lung zone linear atelectatic changes. Electronically signed by: Joe Carrillo On 04/15/2020 04:23:48 AM
[2020-04-15] MEDS ORDERED: ACETAMINOPHEN TAB 650MG DOSE (2X325MG) PO ONE (05:15)
[2020-04-15] MEDS ORDERED: ISOVUE-370 76% 100ML VIAL As Ordered ONE (05:24)
--- NOTE | 2020-04-15 05:53 | REPVR ---
PROCEDURE INFORMATION: Exam: CT Angiography Chest With Contrast Exam date and time: 04/15/2020 5:11 AM Age: 64 years old Clinical indication: Shortness of breath; Additional info: SOB TECHNIQUE: Imaging protocol: Computed tomographic angiography of the chest with intravenous contrast. 3D rendering (Not supervised by radiologist): MIP and/or 3D reconstructed images were created by the technologist. Radiation optimization: All CT scans at this facility use at least one of these dose optimization techniques: automated exposure control; mA and/or kV adjustment per patient size (includes targeted exams where dose is matched to clinical indication); or iterative reconstruction. Contrast material: ISO; Contrast volume: 75 ml; Contrast route: INTRAVENOUS (IV); COMPARISON: CT Chest without contrast 07/12/2017 1:50 PM FINDINGS: Pulmonary arteries: Normal. No pulmonary emboli. Aorta: Unremarkable. No aortic aneurysm. No aortic dissection. Lungs: There are severe centrilobular emphysematous lung changes. There is a 5 mm right upper lobe lung nodule on axial image 34. There is 6-7 mm subpleural nodule posteriorly in the right upper lobe on axial image 55. There is a 3-4 mm left upper lobe subpleural nodule on axial image 37. There is 9 mm right upper lobe bleb. There is right middle lobe discoid atelectasis. Linear atelectasis is also seen in the right lung base. Pleural space: Unremarkable. No pneumothorax. No pleural effusion. Heart: Unremarkable. No cardiomegaly. No pericardial effusion. Lymph nodes: Unremarkable. No enlarged lymph nodes. Bones/joints: Unremarkable. No acute fracture. Soft tissues: Unremarkable. IMPRESSION: 1. No CT evidence of pulmonary embolism or right heart strain. 2. Severe centrilobular emphysematous lung changes. 3. Few scattered lung nodules the largest measuring 6-7 mm.For patients at low risk (minimal or absent history of smoking and of other known risk factors), recommend CT Chest at 3-6 months, then consider CT Chest at 18-24 months. For patients at high risk (history of smoking or of other known risk factors), recommend CT Chest at 3-6 months, then CT Chest at 18-24 months. (Reference: Shea). 4. Right middle lobe discoid atelectases and right lung base linear atelectatic changes. REFERENCES: MacMahon H, et al. Guidelines for Management of Incidental Pulmonary Nodules Detected on CT Images: From the Fleischner Society 2017. Radiology. 2017;284(1):228-243. Electronically signed by: Joe Carrillo On 04/15/2020 05:53:22 AM
[2020-04-15 09:03] LABS: CK-MB VALUE MASS 4.9 NG/ML (<3.6); CPK CREATINE PHOSPHOKINASE 224 U/L (26-192); MB/CK RELATIVE INDEX 2.19 (< OR =4); TROPONIN I < 0.02 NG/ML (< 0.10)
--- NOTE | 2020-04-15 09:05 | ECGEPIP ---
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
--- NOTE | 2020-04-15 09:08 | ECGEPIP ---
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
[2020-04-15] MEDS ORDERED: PRED10TA2 PO (09:55)
[2020-04-15 10:07] VITALS: O2SAT 89
[2020-04-15 10:17] VITALS: BP 148/69
--- NOTE | 2020-04-16 14:43 | ED PDOC ---
Post-Departure Follow-Up cta chest faxed to dr aguilar for fu Hunter Peña MD Apr 16, 2020 14:43
== END 2020-04-15 10:22 | disposition home or self-care (01) ==
LOC: M ED 01:58
DX: J44.1 Chronic obstructive pulmonary disease with (acute) exacerbation (principal); R91.8 Other nonspecific abnormal finding of lung field; J45.909 Unspecified asthma, uncomplicated; Z86.73 Personal history of transient ischemic attack (TIA), and cerebral infarction without residual deficits; K21.9 Gastro-esophageal reflux disease without esophagitis; F17.200 Nicotine dependence, unspecified, uncomplicated; Z79.899 Other long term (current) drug therapy; Z88.0 Allergy status to penicillin; Z88.2 Allergy status to sulfonamides; Z88.1 Allergy status to other antibiotic agents; Z88.5 Allergy status to narcotic agent; Z88.8 Allergy status to other drugs, medicaments and biological substances; Z91.02 Food additives allergy status
CPT/HCPCS: 71046; 71275; 80048; 80076; 82550; 82553; 83880; 84443; 84484; 85025; 85610; 87486; 87581; 87633; 87798; 93005; 93041; 94640; 94760; 96374; 99285; J2930; Q9967

== ENCOUNTER → 2020-04-30 | Outpatient (REF) | payer MEDICARE, MEDICAID ==
[2020-04-30 14:48] LABS: BLOOD UREA NITROGEN 20 MG/DL (7-18); GLUCOSE, FASTING 80 MG/DL (70-100)
[2020-04-30 14:49] LABS: CALCIUM LEVEL 9.2 MG/DL (8.8-10.2); CARBON DIOXIDE LEVEL 32 MEQ/L (21-32); CHLORIDE LEVEL 105 MEQ/L (98-107); GLOMERULAR FILTRATION RATE > 60.0 (>45); POTASSIUM SERUM 4.3 MEQ/L (3.5-5.1); SODIUM LEVEL 144 MEQ/L (136-145)
== END ==
LOC: M LAB REF 13:18
PROVIDERS: ATTEND Family Medicine
DX: E87.6 Hypokalemia (principal)

== ENCOUNTER → 2020-10-23 | Outpatient (CLI) | payer MEDICARE, MEDICAID ==
[~2020-10-23] MED LIST changes: -AMIT10TA PO; +AMIT10TA7 PO
--- NOTE | 2020-10-23 09:56 | REP ---
INDICATION: ABN FINDINGS OF LUNG FIELD. COMPARISON: 04/15/2020 TECHNIQUE: Noncontrast imaging through the chest with coronal and sagittal reconstructions. FINDINGS: The lung garcia show some patchy areas of dependent atelectasis deep sulcus in right lower lobe greater than left. There are few scattered 2-5 mm nodules in the right lung which are unchanged or smaller than the previous study. No new nodule identified. No left lung nodule identified. No calcified pleural plaque, pleural thickening, pneumothorax and only some minor apical scarring. The aorta has some calcifications at the arch and descending portion as well as its root. There is no pathologic sized mediastinal or hilar adenopathy. Sub cm nodes are seen throughout. No hilar mass. Bone windows show marginal osteophytes throughout the mid and lower thoracic spine. Sternum, manubrium, medial clavicles, ribs, shoulders scapulae grossly intact. No hiatal hernia. Visualized portion of upper abdomen shows acute abnormality. IMPRESSION: 1. Few scattered 2-5 mm nodules in the right mid and upper lung zone without new nodules. These are the same or smaller than on 04/15/2020. 2. Left lung without acute finding. Some right middle lobe linear fibrotic change and dependent atelectatic changes are seen. Underlying COPD again seen. No other significant or new finding. <Electronically signed by Patel Gutierrez > 10/23/20 [id number]
== END ==
LOC: M PLAIMG 08:49
PROVIDERS: ATTEND Physician Assistant
DX: R91.8 Other nonspecific abnormal finding of lung field (principal); J44.9 Chronic obstructive pulmonary disease, unspecified

== ENCOUNTER → 2020-11-04 | Outpatient (REF) | payer MEDICARE, MEDICAID ==
[2020-11-04 15:30] LABS: ALT/SGPT 41 U/L (12-78); BILIRUBIN,TOTAL 0.3 MG/DL (0.2-1.0); BLOOD UREA NITROGEN 14 MG/DL (7-18); CALCIUM LEVEL 9.4 MG/DL (8.8-10.2); CARBON DIOXIDE LEVEL 30 MEQ/L (21-32); CHLORIDE LEVEL 106 MEQ/L (98-107); CHOLESTEROL LEVEL 245 MG/DL (<200); CHOLESTEROL RISK RATIO 4.016 (<5); CREATININE FOR GFR 0.75 MG/DL (0.55-1.30); GLOMERULAR FILTRATION RATE > 60.0 (>45); GLUCOSE, FASTING 87 MG/DL (70-100); HDL CHOLESTEROL 61 MG/DL (>40); LDL CHOLESTEROL 164 MG/DL (<100); NON-HDL-C 184 MG/DL; POTASSIUM SERUM 4.4 MEQ/L (3.5-5.1); SODIUM LEVEL 143 MEQ/L (136-145); TOTAL PROTEIN 7.1 GM/DL (6.4-8.2); TRIGLYCERIDES LEVEL 101 MG/DL (<150)
== END ==
LOC: M SFHCADAM 08:07
PROVIDERS: ATTEND Family Medicine
DX: E78.5 Hyperlipidemia, unspecified (principal)

== ENCOUNTER → 2020-12-19 | Outpatient (REF) | payer MEDICARE, MEDICAID ==
[2020-12-19 14:20] LABS: ALBUMIN 3.7 GM/DL (3.2-5.2); ALT/SGPT 44 U/L (12-78); BILIRUBIN,TOTAL 0.4 MG/DL (0.2-1.0); BLOOD UREA NITROGEN 15 MG/DL (7-18); CALCIUM LEVEL 9.3 MG/DL (8.8-10.2); CARBON DIOXIDE LEVEL 29 MEQ/L (21-32); CHLORIDE LEVEL 107 MEQ/L (98-107); CPK CREATINE PHOSPHOKINASE 254 U/L (26-192); CREATININE FOR GFR 0.74 MG/DL (0.55-1.30); GLOMERULAR FILTRATION RATE > 60.0 (>45); GLUCOSE, FASTING 94 MG/DL (70-100); POTASSIUM SERUM 4.8 MEQ/L (3.5-5.1); SODIUM LEVEL 143 MEQ/L (136-145); TOTAL PROTEIN 6.8 GM/DL (6.4-8.2)
== END ==
LOC: M SFHCADAM 09:01
PROVIDERS: ATTEND Family Medicine
DX: R25.2 Cramp and spasm (principal)

== ENCOUNTER → 2021-02-05 | Outpatient (CLI) | payer MEDICARE, MEDICAID ==
--- NOTE | 2021-02-05 13:40 | REP ---
INDICATION: SCREEN MAMMO. COMPARISON: Multiple the latest 03/02/2016. There are no prior DBT images to review. TECHNIQUE: Digital screening mammography was carried out bilaterally in the CC and MLO projections using both 2D and 3D modalities and compared to the prior exams. By history, the patient has no complaints of a palpable breast abnormality or other significant breast complaints. FINDINGS: The breasts are unchanged in size and shape. Once again, scattered benign calcifications are seen bilaterally. There are no suspicious calcific clusters. There is no skin thickening or nipple retraction. In the central retroareolar region of the left breast there is a potential tiny shukri density seen best on DBT imaging. No other suspicious features are seen in either breast. The Volpara volumetric breast density pattern is b. IMPRESSION: BIRADS/ACR category 0 mammogram. Potential tiny shukri density seen in the central retroareolar region of the left breast for which diagnostic digital DBT spot compression views are recommended in the CC and MLO projections along with ultrasonography if indicated. This patient's Tyrer-Cuzick lifetime breast cancer risk assessment score is 5%. This mammogram was interpreted with the aid of an FDA-approved computer-aided detection system. The patient states she had a clinical breast exam in over a year. The patient letter being requested is M0. RECOMMENDATION: As above <Electronically signed by Harry Morales > 02/05/21 [id number]
== END ==
LOC: M WHC 07:54
PROVIDERS: ATTEND Family Medicine
DX: R92.2 Inconclusive mammogram (principal)

== ENCOUNTER → 2021-02-13 | Outpatient (REF) | payer MEDICARE, MEDICAID ==
[2021-02-13 14:07] LABS: C REACTIVE PROTEIN QUANTITATIV 1.47 MG/DL (0.00-0.30)
== END ==
LOC: M SFHCADAM 10:30
PROVIDERS: ATTEND Family Medicine
DX: R74.8 Abnormal levels of other serum enzymes (principal)

== ENCOUNTER → 2021-02-25 | Outpatient (CLI) | payer MEDICARE, MEDICAID ==
--- NOTE | 2021-02-25 09:59 | REP ---
INDICATION: LEFT BREAST ADD VIEWS. COMPARISON: 02/05/2021, 03/02/2016. TECHNIQUE: Multiple images in various projections with tomosynthesis. FINDINGS: The suspected subcentimeter nodular opacity in the left retroareolar region does not persist on additional imaging. No new mass or architectural distortion is seen. IMPRESSION: BIRADS/ACR category 1, negative. No persistent nodule on today's additional views. This mammogram was interpreted with the aid of an FDA-approved computer-aided detection system. The patient letter being requested is M 1. RECOMMENDATION: Repeat screening mammography recommended 1 year (for women over 40). <Electronically signed by Harvey Phillips > 02/25/21 0956
== END ==
LOC: M WHC 08:53
PROVIDERS: ATTEND Family Medicine
DX: Z12.31 Encounter for screening mammogram for malignant neoplasm of breast (principal)
CPT/HCPCS: 77065; G0279

== ENCOUNTER → 2021-05-06 | Outpatient (REF) | payer MEDICARE, MEDICAID ==
[2021-05-06 12:41] LABS: BASO % 0.4 % (0.0-1.0); EOS # 0.2 10^3/uL (0.0-0.5); EOS % 2.7 % (0.0-3.0); HEMATOCRIT 45.4 % (36.0-47.0); HEMOGLOBIN 14.2 g/dl (12.0-15.5); LYMPH # 2.1 10^3/uL (1.5-5.0); LYMPH % 27.9 % (24.0-44.0); MEAN CORPUSCULAR HEMOGLOBIN 28.6 pg (27.0-33.0); MEAN CORPUSCULAR HGB CONC 31.3 g/dl (32.0-36.5); MEAN CORPUSCULAR VOLUME 91.3 fl (80.0-96.0); MONO # 0.5 10^3/uL (0.0-0.8); MONO % 6.4 % (2.0-8.0); NEUTROPHILS # 4.7 10^3/uL (1.5-8.5); NEUTROPHILS % 62.3 % (36.0-66.0); PLATELET COUNT, AUTOMATED 318 10^3/uL (150-450); RED BLOOD COUNT 4.97 10^6/uL (4.00-5.40); WHITE BLOOD COUNT 7.5 10^3/uL (4.0-10.0)
[2021-05-06 12:59] LABS: ERYTHROCYTE SEDIMENTATION RATE 12 mm/hr (0-30)
[2021-05-06 13:09] LABS: ALBUMIN 3.8 GM/DL (3.2-5.2); ALT/SGPT 45 U/L (12-78); BILIRUBIN,TOTAL 0.2 MG/DL (0.2-1.0); BLOOD UREA NITROGEN 20 MG/DL (7-18); CALCIUM LEVEL 9.3 MG/DL (8.8-10.2); CARBON DIOXIDE LEVEL 29 MEQ/L (21-32); CHLORIDE LEVEL 111 MEQ/L (98-107); CHOLESTEROL LEVEL 182 MG/DL (<200); CHOLESTEROL RISK RATIO 3.084 (<5); CREATININE FOR GFR 0.85 MG/DL (0.55-1.30); FREE THYROXINE INDEX 2.6 % (1.3-4.8); GLOMERULAR FILTRATION RATE > 60.0 (>45); GLUCOSE, FASTING 92 MG/DL (70-100); HDL CHOLESTEROL 59 MG/DL (>40); LDL CHOLESTEROL 107 MG/DL (<100); NON-HDL-C 123 MG/DL; POTASSIUM SERUM 4.7 MEQ/L (3.5-5.1); RHEUMATOID FACTOR QUANT < 10.0 IU/ML (<15.0); SODIUM LEVEL 144 MEQ/L (136-145); T UPTAKE 29 % (30-39); THYROXINE (T4) 8.9 UG/DL (4.5-12.0); TRIGLYCERIDES LEVEL 81 MG/DL (<150)
[2021-05-06 13:34] LABS: TOTAL 25(OH) VITAMIN D 22.6 NG/ML (30.0-100.0); VITAMIN B12 LEVEL 766 PG/ML
[2021-05-06 13:35] LABS: FOLATE 9.5 NG/ML
[2021-05-07 13:08] LABS: ANTINUCLEAR ANTIBODIES DIRECT Negative (Negative)
== END ==
LOC: M LAB REF 12:27
PROVIDERS: ATTEND Psychiatry & Neurology Neurology
DX: Z86.73 Personal history of transient ischemic attack (TIA), and cerebral infarction without residual deficits (principal); M62.838 Other muscle spasm; G60.9 Hereditary and idiopathic neuropathy, unspecified

== ENCOUNTER 2021-05-25 13:55 | Outpatient (CLI) | payer MEDICARE, MEDICAID ==
[~2021-05-25] VITALS: Ht 170.2 cm; Wt 75.0 kg
[~2021-05-25 13:55] MED LIST changes: +ALBUTEROL 90 MCG/ACT 8GM HFA INHALER INH PRN; +ALBUTEROL SULFATE 2.5 MG/0.5 ML INH NEB SOLN INH PRN; +EPINEPHrine INJ 1 MG/ML 1ML AMP IM PRN; +NS 1,000 ML IV SCH; +diphenhydrAMINE 50MG/ML VIAL (J1200) IV PRN; +methylPREDNISolone 125MG 2ML VIAL IV PRN
[2021-05-25] MEDS ORDERED: SOTROVIMAB 500 MG in NS 100 ML IV ONE (14:30)
[2021-05-25 14:32] VITALS: BP 153/92
[2021-05-25 15:17] VITALS: BP 124/69
[2021-05-25 16:19] VITALS: BP 120/74
== END 2021-05-25 16:20 | disposition home or self-care (01) ==
LOC: M OPCLI4 13:55 → M OPCLI4PR 13:55 → M 4MAIN 14:16 → M OPCLI4 16:20
PROVIDERS: ATTEND Family Medicine
DX: U07.1 COVID-19 (principal); Z88.0 Allergy status to penicillin; Z88.1 Allergy status to other antibiotic agents; Z88.2 Allergy status to sulfonamides; Z88.8 Allergy status to other drugs, medicaments and biological substances

== ENCOUNTER → 2021-06-17 | Outpatient (REF) | payer MEDICARE, MEDICAID ==
[~2021-06-17] MED LIST changes: -ALBUTEROL 90 MCG/ACT 8GM HFA INHALER INH PRN; -ALBUTEROL SULFATE 2.5 MG/0.5 ML INH NEB SOLN INH PRN; -EPINEPHrine INJ 1 MG/ML 1ML AMP IM PRN; -NS 1,000 ML IV SCH; -diphenhydrAMINE 50MG/ML VIAL (J1200) IV PRN; -methylPREDNISolone 125MG 2ML VIAL IV PRN
== END ==
LOC: M SFHCADAM 11:12
PROVIDERS: ATTEND Family Medicine
DX: R09.81 Nasal congestion (principal)

== ENCOUNTER → 2022-03-22 | Outpatient (REF) | payer MEDICARE ==
[~2022-03-22] MED LIST changes: +ALBU2.5V10 INH; -ALBU83IN INH; +CLOP75TA99 PO; -PLAV1TAB2 PO
[2022-03-22 13:52] LABS: BLOOD UREA NITROGEN 17 MG/DL (9-23); CREATININE FOR GFR 0.77 MG/DL (0.55-1.30); GLOMERULAR FILTRATION RATE > 60.0 (>45)
== END ==
LOC: M LAB REF 13:11
PROVIDERS: ATTEND Otolaryngology
DX: R22.1 Localized swelling, mass and lump, neck (principal)

== ENCOUNTER → 2022-03-24 | Outpatient (CLI) | payer MEDICARE, MEDICAID ==
[~2022-03-24] MED LIST changes: +ISOVUE-370 76% 100ML VIAL As Ordered ONE
== END ==
LOC: M RAD 07:59
PROVIDERS: ATTEND Otolaryngology
DX: R22.1 Localized swelling, mass and lump, neck (principal)
CPT/HCPCS: 70491; Q9967

== ENCOUNTER → 2022-04-29 | Outpatient (CLI) | payer MEDICARE, MEDICAID ==
[~2022-04-29] MED LIST changes: +CVS1CAP2 PO; +IPRA0.00 INH; -ISOVUE-370 76% 100ML VIAL As Ordered ONE; +LEVOTAB10 PO; +MYLA1SUS PO; +SYMB16INH INH
== END ==
LOC: M WHC 13:46
PROVIDERS: ATTEND Otolaryngology
DX: E04.1 Nontoxic single thyroid nodule (principal)

== ENCOUNTER → 2022-05-03 | Outpatient (CLI) | payer MEDICARE | LOC: M LABSMTC 10:46 | PROVIDERS: ATTEND Anesthesiology | DX: Z01.812 Encounter for preprocedural laboratory examination (principal); Z11.52 Encounter for screening for COVID-19 ==

== ENCOUNTER 2022-05-06 12:28 | Day surgery (SDC) | payer MEDICARE ==
[~2022-05-06] VITALS: Ht 170.2 cm; Wt 72.6 kg
[~2022-05-06 12:28] MED LIST changes: +NS 1,000 ML IV ONE
[2022-05-06] MEDS ORDERED: PREV15TA2 PO (13:19)
[2022-05-06] MEDS ORDERED: BOTO200I IJ (13:28)
[2022-05-06] MEDS ORDERED: fentaNYL 100 MCG/2 ML INJECTION As Ordered ONE (13:41)
[2022-05-06] MEDS ORDERED: propofoL 200 MG/20 ML VIAL As Ordered ONE (13:41)
[2022-05-06] MEDS ORDERED: LIDOCAINE 2% 100MG/5ML SDV (FOR ANES.) As Ordered ONE (13:41)
[2022-05-06 14:30] VITALS: BP 131/66
== END 2022-05-06 14:37 | disposition home or self-care (01) ==
LOC: M OPP 12:28
PROVIDERS: ATTEND Internal Medicine Gastroenterology
DX: K22.89 Other specified disease of esophagus (principal); R10.13 Epigastric pain; Z79.02 Long term (current) use of antithrombotics/antiplatelets; Z79.1 Long term (current) use of non-steroidal anti-inflammatories (NSAID); Z79.51 Long term (current) use of inhaled steroids; Z79.899 Other long term (current) drug therapy; Z88.0 Allergy status to penicillin; Z88.1 Allergy status to other antibiotic agents; Z88.2 Allergy status to sulfonamides; Z88.5 Allergy status to narcotic agent; Z88.6 Allergy status to analgesic agent; Z91.040 Latex allergy status; Z91.048 Other nonmedicinal substance allergy status; J44.9 Chronic obstructive pulmonary disease, unspecified; J45.909 Unspecified asthma, uncomplicated; Z86.69 Personal history of other diseases of the nervous system and sense organs; Z86.73 Personal history of transient ischemic attack (TIA), and cerebral infarction without residual deficits
CPT/HCPCS: 43239; 88305; J3010

== ENCOUNTER → 2022-09-06 | Outpatient (REF) | payer MEDICARE, MEDICAID ==
[~2022-09-06] MED LIST changes: +BOTO200I IJ; -NS 1,000 ML IV ONE; +PREV15TA2 PO
[2022-09-06 13:22] LABS: BASO # 0.1 10^3/uL (0.0-0.2); BASO % 0.8 % (0.0-1.0); EOS # 0.2 10^3/uL (0.0-0.5); EOS % 3.3 % (0.0-3.0); HEMATOCRIT 46.8 % (36.0-47.0); HEMOGLOBIN 14.6 g/dl (12.0-15.5); LYMPH % 32.6 % (24.0-44.0); MEAN CORPUSCULAR HEMOGLOBIN 29.2 pg (27.0-33.0); MEAN CORPUSCULAR HGB CONC 31.2 g/dl (32.0-36.5); MEAN CORPUSCULAR VOLUME 93.6 fl (80.0-96.0); MONO # 0.4 10^3/uL (0.0-0.8); MONO % 6.9 % (2.0-8.0); NEUTROPHILS # 3.4 10^3/uL (1.5-8.5); NEUTROPHILS % 56.1 % (36.0-66.0); PLATELET COUNT, AUTOMATED 286 10^3/uL (150-450); WHITE BLOOD COUNT 6.1 10^3/uL (4.0-10.0)
[2022-09-06 13:47] LABS: ALBUMIN 3.8 G/DL (3.2-5.2); ALKALINE PHOSPHATASE 141 U/L (46-116); ALT/SGPT 25 U/L (7.0-40); AST/SGOT 14 U/L (<34); BILIRUBIN,TOTAL 0.3 MG/DL (0.3-1.2); BLOOD UREA NITROGEN 18 MG/DL (9-23); CALCIUM LEVEL 8.7 MG/DL (8.3-10.6); CARBON DIOXIDE LEVEL 30 MMOL/L (20-31); CHLORIDE LEVEL 107 MMOL/L (98-107); GLOMERULAR FILTRATION RATE > 60.0 (>45); GLUCOSE, FASTING 86 MG/DL (74-106); SODIUM LEVEL 143 MMOL/L (136-145); TOTAL PROTEIN 6.6 G/DL (5.7-8.2)
[2022-09-06 13:48] LABS: FREE T4 1.05 NG/DL (0.89-1.76)
[2022-09-06 13:49] LABS: THYROID STIMULATING HORMONE 5.051 uIU/ML (0.55-4.78)
== END ==
LOC: M SFHCADAM 08:40
PROVIDERS: ATTEND Family Medicine
DX: R53.83 Other fatigue (principal)

== ENCOUNTER → 2022-09-30 | Outpatient (REF) | payer MEDICARE, MEDICAID ==
[2022-09-30 16:27] LABS: THYROID STIMULATING HORMONE 2.162 uIU/ML (0.55-4.78)
== END ==
LOC: M SFHCADAM 12:59
PROVIDERS: ATTEND Family Medicine
DX: R79.89 Other specified abnormal findings of blood chemistry (principal); Z79.899 Other long term (current) drug therapy

== ENCOUNTER → 2022-10-21 | Outpatient (CLI) | payer MEDICARE, MEDICAID ==
[~2022-10-21] MED LIST changes: -AMIT25TA17 PO; +AMIT25TA19 PO
== END ==
LOC: M ADAMS 14:37
PROVIDERS: ATTEND Physician Assistant
DX: R22.41 Localized swelling, mass and lump, right lower limb (principal)

== ENCOUNTER → 2022-11-24 | Outpatient (CLI) | payer MEDICARE, MEDICAID | LOC: M RAD 13:23 | PROVIDERS: ATTEND Otolaryngology | DX: E04.1 Nontoxic single thyroid nodule (principal); R22.1 Localized swelling, mass and lump, neck ==

== ENCOUNTER → 2022-11-24 | Outpatient (CLI) | payer MEDICARE, MEDICAID | LOC: M RAD 13:24 | PROVIDERS: ATTEND Physician Assistant | DX: R22.41 Localized swelling, mass and lump, right lower limb (principal); E04.1 Nontoxic single thyroid nodule; R22.1 Localized swelling, mass and lump, neck ==

== ENCOUNTER → 2022-12-09 | Outpatient (CLI) | payer MEDICARE, MEDICAID | LOC: M RAD 08:27 | PROVIDERS: ATTEND Physician Assistant | DX: Z12.2 Encounter for screening for malignant neoplasm of respiratory organs (principal); J43.2 Centrilobular emphysema; F17.218 Nicotine dependence, cigarettes, with other nicotine-induced disorders; J84.10 Pulmonary fibrosis, unspecified ==

== ENCOUNTER 2023-01-06 03:23 | Emergency (ER) | payer MEDICARE, MEDICAID ==
[~2023-01-06] VITALS: Ht 170.2 cm; Wt 60.6 kg
[2023-01-06] MEDS ORDERED: IPRATROPIUM 0.5MG/ALBUTEROL 2.5MG INH SOL UD 3ML (DUONEB) NEB ONE ×2 (03:45→05:55)
[2023-01-06 04:01] LABS: ABG BASE EXCESS -0.4 (-2.0-2.0); ABG HCO3 25.6 MMOL/L (22.0-26.0); ABG O2 SATURATION 90.8 % (95.0-99.0); ABG PARTIAL PRESSURE CO2 46.9 mmHg (35.0-45.0); ABG PARTIAL PRESSURE O2 62.2 mmHg (75.0-100.0); ABG pH (ARTERIAL) 7.355 UNITS (7.350-7.450)
[2023-01-06 04:05] LABS: BASO % 0.4 % (0.0-1.0); EOS # 0.2 10^3/uL (0.0-0.5); EOS % 1.7 % (0.0-3.0); HEMATOCRIT 45.5 % (36.0-47.0); HEMOGLOBIN 14.9 g/dl (12.0-15.5); LYMPH # 2.4 10^3/uL (1.5-5.0); LYMPH % 20.6 % (24.0-44.0); MEAN CORPUSCULAR HEMOGLOBIN 30.4 pg (27.0-33.0); MEAN CORPUSCULAR HGB CONC 32.7 g/dl (32.0-36.5); MEAN CORPUSCULAR VOLUME 92.9 fl (80.0-96.0); MONO # 0.8 10^3/uL (0.0-0.8); NEUTROPHILS % 69.9 % (36.0-66.0); PLATELET COUNT, AUTOMATED 303 10^3/uL (150-450); WHITE BLOOD COUNT 11.4 10^3/uL (4.0-10.0)
[2023-01-06 04:23] LABS: ALKALINE PHOSPHATASE 162 U/L (46-116); ALT/SGPT 29 U/L (7.0-40); AST/SGOT 24 U/L (<34); BILIRUBIN,DIRECT < 0.1 MG/DL (<0.4); BILIRUBIN,TOTAL 0.3 MG/DL (0.3-1.2); BLOOD UREA NITROGEN 11 MG/DL (9-23); CALCIUM LEVEL 9.2 MG/DL (8.3-10.6); CARBON DIOXIDE LEVEL 29 MMOL/L (20-31); CHLORIDE LEVEL 108 MMOL/L (98-107); CK-MB VALUE MASS 4.4 NG/ML (<3.6); CPK CREATINE PHOSPHOKINASE 336 U/L (34-145); GLOMERULAR FILTRATION RATE > 60.0 (>45); GLUCOSE, FASTING 110 MG/DL (74-106); POTASSIUM SERUM 3.9 MMOL/L (3.5-5.1); SODIUM LEVEL 144 MMOL/L (136-145); TOTAL PROTEIN 7.1 G/DL (5.7-8.2)
[2023-01-06 05:13] LABS: CK-MB VALUE MASS 4.2 NG/ML (<3.6)
[2023-01-06 05:14] LABS: MB/CK RELATIVE INDEX 1.28 (< OR =4)
[2023-01-06] MEDS ORDERED: ACETAMINOPHEN 500 MG TAB PO ONE (07:45)
[2023-01-06 08:18] VITALS: BP 140/64; TEMP 98.6; O2SAT 91
== END 2023-01-06 08:33 | disposition home or self-care (01) ==
LOC: M ED 03:23 → EDBD 03:23 → M ED 08:33
DX: J06.9 Acute upper respiratory infection, unspecified (principal); J44.9 Chronic obstructive pulmonary disease, unspecified; E78.5 Hyperlipidemia, unspecified; R56.9 Unspecified convulsions; R91.8 Other nonspecific abnormal finding of lung field; Z99.81 Dependence on supplemental oxygen; F17.200 Nicotine dependence, unspecified, uncomplicated; Z88.0 Allergy status to penicillin; Z88.1 Allergy status to other antibiotic agents; Z88.8 Allergy status to other drugs, medicaments and biological substances; Z91.040 Latex allergy status; Z79.51 Long term (current) use of inhaled steroids; Z79.899 Other long term (current) drug therapy

== ENCOUNTER 2023-01-06 10:36 | Observation (INO) | payer MEDICARE, MEDICAID ==
[~2023-01-06] VITALS: Ht 170.2 cm; Wt 69.9 kg
[2023-01-06] MEDS ORDERED: predniSONE 20 MG TAB PO ONE (12:00)
[2023-01-06] MEDS: IPRATROPIUM 0.5MG/ALBUTEROL 2.5MG INH SOL UD 3ML (DUONEB) NEB SCH ×6 (12:12→13:02)
[2023-01-06] MEDS ORDERED: ACETAMINOPHEN TAB 650MG DOSE (2X325MG) PO ONE (12:50)
[2023-01-06] MEDS ORDERED: MED REC IN PROGRESS XX SCH (13:45)
[2023-01-06] MEDS ORDERED: AZITHROMYCIN INJ 500 MG, VIAL MATE ADAPTER 1 EACH in NS 250 ML IV SCH (14:35)
[2023-01-06] MEDS ORDERED: MOM 30ML SUSPENSION UDC PO PRN (14:35)
[2023-01-06 15:40] LABS: INR 1.03; PROTHROMBIN TIME 13.2 SECONDS (12.5-14.5)
[2023-01-06 16:40] VITALS: BP 151/86; TEMP 98.1; O2SAT 90
[2023-01-06] MEDS: AZITHROMYCIN 250MG TABLET PO SCH (18:28)
[2023-01-06] MEDS: NICOTINE 21MG/24HR 1 EA TRANSDERMAL TD SCH (18:28)
[2023-01-06] MEDS ORDERED: HOME MED LIST COMPLETE! XX SCH (18:40)
[2023-01-06] MEDS: COMBIVENT RESPIMAT 100-20MCG INHALER 4GM INH SCH ×2 (19:51→23:33)
[2023-01-06] MEDS: RIVAROXABAN 10MG TAB (XARELTO) PO SCH (19:58)
[2023-01-06] MEDS: ACETAMINOPHEN TAB 650MG DOSE (2X325MG) PO PRN (19:59)
[2023-01-06] MEDS: methylPREDNISolone 125MG 2ML VIAL IV SCH (19:59)
[2023-01-06] MEDS ORDERED: ALBUTEROL 90 MCG/ACT 8GM HFA INHALER INH PRN (20:05)
[2023-01-06] MEDS ORDERED: DOCUSATE SODIUM 100MG CAPSULE PO SCH (21:00)
[2023-01-06 21:43] VITALS: BP 152/84; TEMP 98.1; O2SAT 89
[2023-01-06] MEDS: CLOPIDOGREL 75 MG TAB PO SCH (22:17)
[2023-01-06] MEDS: AMITRIPTYLINE 10MG TABLET PO SCH (22:17)
[2023-01-06] MEDS: SYMBICORT 160/4.5MCG INHALER 6GM INH SCH (22:21)
[2023-01-07] MEDS: guaiFENesin 200 MG TAB PO PRN ×4 (00:48→21:19)
[2023-01-07] MEDS: methylPREDNISolone 125MG 2ML VIAL IV SCH ×2 (05:12→12:43)
[2023-01-07 05:51] VITALS: BP 121/65; TEMP 97.5; O2SAT 90
[2023-01-07 06:54] LABS: HEMOGLOBIN 14.7 g/dl (12.0-15.5); MEAN CORPUSCULAR HEMOGLOBIN 29.8 pg (27.0-33.0); MEAN CORPUSCULAR VOLUME 93.1 fl (80.0-96.0); PLATELET COUNT, AUTOMATED 309 10^3/uL (150-450); RED BLOOD COUNT 4.94 10^6/uL (4.00-5.40); WHITE BLOOD COUNT 8.6 10^3/uL (4.0-10.0)
[2023-01-07 07:22] LABS: BLOOD UREA NITROGEN 12 MG/DL (9-23); CALCIUM LEVEL 9.5 MG/DL (8.3-10.6); CARBON DIOXIDE LEVEL 31 MMOL/L (20-31); CHLORIDE LEVEL 108 MMOL/L (98-107); CREATININE FOR GFR 0.57 MG/DL (0.55-1.30); GLOMERULAR FILTRATION RATE > 60.0 (>45); GLUCOSE, FASTING 127 MG/DL (74-106); POTASSIUM SERUM 4.7 MMOL/L (3.5-5.1); SODIUM LEVEL 144 MMOL/L (136-145)
[2023-01-07] MEDS: SYMBICORT 160/4.5MCG INHALER 6GM INH SCH ×2 (07:31→19:27)
[2023-01-07] MEDS: COMBIVENT RESPIMAT 100-20MCG INHALER 4GM INH SCH ×3 (07:31→19:28)
[2023-01-07] MEDS: PANTOPRAZOLE 20 MG TAB PO SCH (09:24)
[2023-01-07] MEDS: AZITHROMYCIN 250MG TABLET PO SCH (09:24)
[2023-01-07] MEDS: NICOTINE 21MG/24HR 1 EA TRANSDERMAL TD SCH (09:25)
[2023-01-07 14:00] VITALS: BP 128/73; TEMP 98.4; O2SAT 90
[2023-01-07 19:26] VITALS: O2SAT 89
[2023-01-07 20:00] VITALS: BP 133/75; TEMP 97.7; O2SAT 92
[2023-01-07] MEDS: ACETAMINOPHEN TAB 650MG DOSE (2X325MG) PO PRN (20:25)
[2023-01-07] MEDS: AMITRIPTYLINE 10MG TABLET PO SCH (20:25)
[2023-01-07] MEDS: RIVAROXABAN 10MG TAB (XARELTO) PO SCH (20:25)
[2023-01-07] MEDS: CLOPIDOGREL 75 MG TAB PO SCH (20:25)
[2023-01-08] MEDS: COMBIVENT RESPIMAT 100-20MCG INHALER 4GM INH SCH ×2 (02:52→08:16)
[2023-01-08 06:00] VITALS: BP 142/74; TEMP 97.9; O2SAT 93
[2023-01-08 06:26] LABS: HEMATOCRIT 43.8 % (36.0-47.0); HEMOGLOBIN 13.9 g/dl (12.0-15.5); MEAN CORPUSCULAR HEMOGLOBIN 29.6 pg (27.0-33.0); MEAN CORPUSCULAR HGB CONC 31.7 g/dl (32.0-36.5); MEAN CORPUSCULAR VOLUME 93.4 fl (80.0-96.0); PLATELET COUNT, AUTOMATED 305 10^3/uL (150-450); RED BLOOD COUNT 4.69 10^6/uL (4.00-5.40); WHITE BLOOD COUNT 13.7 10^3/uL (4.0-10.0)
[2023-01-08 07:02] LABS: BLOOD UREA NITROGEN 21 MG/DL (9-23); CALCIUM LEVEL 9.4 MG/DL (8.3-10.6); CARBON DIOXIDE LEVEL 33 MMOL/L (20-31); CHLORIDE LEVEL 107 MMOL/L (98-107); CREATININE FOR GFR 0.67 MG/DL (0.55-1.30); GLOMERULAR FILTRATION RATE > 60.0 (>45); GLUCOSE, FASTING 92 MG/DL (74-106); POTASSIUM SERUM 4.7 MMOL/L (3.5-5.1); SODIUM LEVEL 144 MMOL/L (136-145)
[2023-01-08] MEDS: NICOTINE 21MG/24HR 1 EA TRANSDERMAL TD SCH (08:42)
[2023-01-08] MEDS: guaiFENesin 200 MG TAB PO PRN (08:42)
[2023-01-08] MEDS: PANTOPRAZOLE 20 MG TAB PO SCH (08:42)
[2023-01-08] MEDS: AZITHROMYCIN 250MG TABLET PO SCH (08:42)
[2023-01-08] MEDS ORDERED: predniSONE 50 MG TAB PO SCH (09:00)
[2023-01-08] MEDS ORDERED: HYDR-4570 PO (09:44)
[2023-01-08] MEDS ORDERED: PRED10TA2 PO (09:44)
[2023-01-08] MEDS ORDERED: GUAI20TA PO (09:44)
[2023-01-08] MEDS ORDERED: PRED20TA PO (09:44)
[2023-01-08] MEDS ORDERED: IPRA0.00 INH (09:44)
[2023-01-08] MEDS ORDERED: AZIT500T5 PO (09:44)
[2023-01-08] MEDS ORDERED: NICO21PAT TD (09:44)
[2023-01-08] MEDS: SYMBICORT 160/4.5MCG INHALER 6GM INH SCH (10:35)
== END 2023-01-08 11:30 | disposition home or self-care (01) ==
LOC: M ED 10:36 → M ED INP 10:37 → ENRESERV 15:06 → M MSPAV 16:39
PROVIDERS: ADMIT Student in an Organized Health Care Education/Training Program; ATTEND Student in an Organized Health Care Education/Training Program
DX: J44.1 Chronic obstructive pulmonary disease with (acute) exacerbation (principal); R74.8 Abnormal levels of other serum enzymes; B97.89 Other viral agents as the cause of diseases classified elsewhere; R06.02 Shortness of breath; R91.1 Solitary pulmonary nodule; J45.909 Unspecified asthma, uncomplicated; Z86.73 Personal history of transient ischemic attack (TIA), and cerebral infarction without residual deficits; F17.210 Nicotine dependence, cigarettes, uncomplicated; J06.9 Acute upper respiratory infection, unspecified; E78.5 Hyperlipidemia, unspecified; R56.9 Unspecified convulsions; R91.8 Other nonspecific abnormal finding of lung field; Z99.81 Dependence on supplemental oxygen; Z88.1 Allergy status to other antibiotic agents; Z88.0 Allergy status to penicillin; Z88.2 Allergy status to sulfonamides; Z91.048 Other nonmedicinal substance allergy status; Z91.040 Latex allergy status; Z88.8 Allergy status to other drugs, medicaments and biological substances; Z88.5 Allergy status to narcotic agent; Z88.6 Allergy status to analgesic agent; Z79.899 Other long term (current) drug therapy; Z79.02 Long term (current) use of antithrombotics/antiplatelets; Z79.51 Long term (current) use of inhaled steroids
CPT/HCPCS: 36415; 36600; 71045; 80048; 80076; 82550; 82553; 82803; 83605; 84145; 84484; 85025; 85027; 85610; 87040; 87486; 87581; 87633; 87798; 93041; 94640; 94664; 94760; 96374; 96376; 97116; 97161; 99285; G0378; J2930; J7512

== ENCOUNTER → 2023-01-21 | Outpatient (REF) | payer MEDICARE, MEDICAID ==
[~2023-01-21] MED LIST changes: +GUAI20TA PO; +HYDR-4570 PO; +NICO21PAT TD
[2023-01-25 14:49] LABS: BLOOD UREA NITROGEN 17 MG/DL (8-27); CALCIUM LEVEL 9.6 MG/DL (8.7-10.3); CARBON DIOXIDE LEVEL 25 mmol/L (20-29); CHLORIDE LEVEL 103 mmol/L (96-106); CREATININE FOR GFR 0.82 MG/DL (0.57-1.00); GLOMERULAR FILTRATION RATE > 60.0 (>59); POTASSIUM SERUM 4.9 mmol/L (3.5-5.2); SODIUM LEVEL 144 mmol/L (134-144)
[2023-01-25 14:50] LABS: GLUCOSE, FASTING 83 MG/DL (70-99)
== END ==
LOC: M SFHCADAM 09:07
PROVIDERS: ATTEND Physician Assistant
DX: R74.8 Abnormal levels of other serum enzymes (principal)

== ENCOUNTER → 2023-04-27 | Outpatient (CLI) | payer MEDICARE, MEDICAID | LOC: M WHC 11:03 | PROVIDERS: ATTEND Family Medicine | DX: N63.13 Unspecified lump in the right breast, lower outer quadrant (principal) | CPT/HCPCS: 77066; G0279 ==

== ENCOUNTER → 2023-05-24 | Outpatient (REF) | payer MEDICARE, MEDICAID ==
[2023-05-24 14:06] LABS: URIC ACID 4.9 MG/DL (3.1-7.8)
[2023-05-24 14:09] LABS: ALKALINE PHOSPHATASE 149 U/L (46-116); ALT/SGPT 23 U/L (7.0-40); AST/SGOT 12 U/L (<34); BILIRUBIN,TOTAL 0.3 MG/DL (0.3-1.2); BLOOD UREA NITROGEN 18 MG/DL (9-23); CALCIUM LEVEL 9.6 MG/DL (8.3-10.6); CARBON DIOXIDE LEVEL 30 MMOL/L (20-31); CHLORIDE LEVEL 107 MMOL/L (98-107); CPK CREATINE PHOSPHOKINASE 198 U/L (34-145); CREATININE FOR GFR 0.69 MG/DL (0.55-1.30); GLOMERULAR FILTRATION RATE > 60.0 (>39); GLUCOSE, FASTING 93 MG/DL (74-106); POTASSIUM SERUM 4.9 MMOL/L (3.5-5.1); SODIUM LEVEL 143 MMOL/L (136-145)
[2023-05-24 14:11] LABS: RHEUMATOID FACTOR QUANT < 3.5 IU/ML (<14)
[2023-05-24 14:13] LABS: BASO % 0.5 % (0.0-1.0); EOS # 0.2 10^3/uL (0.0-0.5); EOS % 2.5 % (0.0-3.0); HEMATOCRIT 48.8 % (36.0-47.0); HEMOGLOBIN 15.4 g/dl (12.0-15.5); LYMPH # 1.8 10^3/uL (1.5-5.0); LYMPH % 27.6 % (24.0-44.0); MEAN CORPUSCULAR HGB CONC 31.6 g/dl (32.0-36.5); MEAN CORPUSCULAR VOLUME 94.9 fl (80.0-96.0); MONO # 0.4 10^3/uL (0.0-0.8); MONO % 6.5 % (2.0-8.0); NEUTROPHILS # 4.1 10^3/uL (1.5-8.5); NEUTROPHILS % 62.7 % (36.0-66.0); PLATELET COUNT, AUTOMATED 319 10^3/uL (150-450); RED BLOOD COUNT 5.14 10^6/uL (4.00-5.40); WHITE BLOOD COUNT 6.5 10^3/uL (4.0-10.0)
[2023-05-24 14:29] LABS: ERYTHROCYTE SEDIMENTATION RATE 23 mm/hr (0-30)
[2023-05-26 03:10] LABS: ANA (HEP2) Negative (.); CYCLIC CITRULLINATED PEPTIDE 10 units (0-19)
== END ==
LOC: M SFHCADAM 09:37
PROVIDERS: ATTEND Family Medicine
DX: R74.8 Abnormal levels of other serum enzymes (principal); G89.4 Chronic pain syndrome

== ENCOUNTER → 2023-05-30 | Outpatient (CLI) | payer MEDICARE, MEDICAID | LOC: M WUC 13:57 → M ADAMS 13:57 | PROVIDERS: ATTEND Physician Assistant | DX: R91.8 Other nonspecific abnormal finding of lung field (principal); J22 Unspecified acute lower respiratory infection ==

== ENCOUNTER → 2023-06-30 | Outpatient (CLI) | payer MEDICARE, MEDICAID | LOC: M PLAIMG 13:02 | PROVIDERS: ATTEND Physician Assistant | DX: R91.8 Other nonspecific abnormal finding of lung field (principal) ==

== ENCOUNTER → 2023-07-28 | Outpatient (REF) | payer MEDICARE, MEDICAID ==
[2023-07-28 13:26] LABS: ALBUMIN 3.8 G/DL (3.2-5.2); ALKALINE PHOSPHATASE 153 U/L (46-116); ALT/SGPT 27 U/L (7.0-40); AST/SGOT 14 U/L (<34); BILIRUBIN,TOTAL 0.4 MG/DL (0.3-1.2); BLOOD UREA NITROGEN 13 MG/DL (9-23); CALCIUM LEVEL 9.5 MG/DL (8.3-10.6); CARBON DIOXIDE LEVEL 31 MMOL/L (20-31); CHLORIDE LEVEL 104 MMOL/L (98-107); CHOLESTEROL LEVEL 190 MG/DL (<200); CHOLESTEROL RISK RATIO 3.18 (<5); CREATININE FOR GFR 0.75 MG/DL (0.55-1.30); GLOMERULAR FILTRATION RATE > 60.0 (>39); GLUCOSE, FASTING 83 MG/DL (74-106); HDL CHOLESTEROL 59.7 MG/DL (>40); LDL CHOLESTEROL 113.7 MG/DL (<100); NON-HDL-C 130.3 MG/DL; POTASSIUM SERUM 4.5 MMOL/L (3.5-5.1); SODIUM LEVEL 142 MMOL/L (136-145); TOTAL PROTEIN 6.6 G/DL (5.7-8.2); TRIGLYCERIDES LEVEL 83 MG/DL (<150)
== END ==
LOC: M SFHCADAM 09:43
PROVIDERS: ATTEND Family Medicine
DX: G45.3 Amaurosis fugax (principal)

== ENCOUNTER → 2023-08-12 | Outpatient (CLI) | payer MEDICARE, MEDICAID | LOC: M PLARAD 10:01 | PROVIDERS: ATTEND Psychiatry & Neurology Neurology | DX: Z53.9 Procedure and treatment not carried out, unspecified reason (principal) ==

== ENCOUNTER → 2023-08-16 | Outpatient (CLI) | payer MEDICARE, MEDICAID | LOC: M RAD 10:41 | PROVIDERS: ATTEND Psychiatry & Neurology Neurology | DX: Z53.9 Procedure and treatment not carried out, unspecified reason (principal) ==

== ENCOUNTER → 2023-10-10 | Outpatient (CLI) | payer MEDICARE, MEDICAID | LOC: M RAD 12:55 | PROVIDERS: ATTEND Family Medicine | DX: Z86.73 Personal history of transient ischemic attack (TIA), and cerebral infarction without residual deficits (principal) ==

== ENCOUNTER → 2023-11-04 | Outpatient (CLI) | payer MEDICARE, MEDICAID | LOC: M RAD 11:35 | PROVIDERS: ATTEND Otolaryngology | DX: E04.1 Nontoxic single thyroid nodule (principal) ==

== ENCOUNTER → 2023-11-22 | Outpatient (REF) | payer MEDICARE, MEDICAID | LOC: M SFHCADAM 14:03 | PROVIDERS: ATTEND Family Medicine | DX: R25.2 Cramp and spasm (principal) ==

== ENCOUNTER → 2023-12-14 | Outpatient (REF) | payer MEDICARE, MEDICAID ==
[2023-12-14 17:40] LABS: LIPASE 37 U/L (12-53)
[2023-12-14 17:42] LABS: ALKALINE PHOSPHATASE 163 U/L (46-116); ALT/SGPT 32 U/L (7.0-40); AST/SGOT 18 U/L (<34); BILIRUBIN,TOTAL 0.4 MG/DL (0.3-1.2); BLOOD UREA NITROGEN 10 MG/DL (9-23); CARBON DIOXIDE LEVEL 30 MMOL/L (20-31); CHLORIDE LEVEL 106 MMOL/L (98-107); CREATININE FOR GFR 0.72 MG/DL (0.55-1.30); GLOMERULAR FILTRATION RATE > 60.0 (>39); GLUCOSE, FASTING 85 MG/DL (74-106); POTASSIUM SERUM 4.4 MMOL/L (3.5-5.1); SODIUM LEVEL 142 MMOL/L (136-145); TOTAL PROTEIN 7.1 G/DL (5.7-8.2)
[2023-12-14 17:47] LABS: BASO % 0.5 % (0.0-1.0); EOS # 0.2 10^3/uL (0.0-0.5); HEMATOCRIT 45.9 % (36.0-47.0); HEMOGLOBIN 14.7 g/dl (12.0-15.5); LYMPH # 2.3 10^3/uL (1.5-5.0); LYMPH % 27.9 % (24.0-44.0); MEAN CORPUSCULAR HEMOGLOBIN 29.7 pg (27.0-33.0); MEAN CORPUSCULAR VOLUME 92.7 fl (80.0-96.0); MONO # 0.5 10^3/uL (0.0-0.8); MONO % 6.5 % (2.0-8.0); NEUTROPHILS # 5.1 10^3/uL (1.5-8.5); NEUTROPHILS % 62.6 % (36.0-66.0); PLATELET COUNT, AUTOMATED 297 10^3/uL (150-450); RED BLOOD COUNT 4.95 10^6/uL (4.00-5.40); WHITE BLOOD COUNT 8.2 10^3/uL (4.0-10.0)
[2023-12-14 18:19] LABS: CPK CREATINE PHOSPHOKINASE 274 U/L (34-145)
[2023-12-14 18:20] LABS: ALBUMIN 4.1 G/DL (3.2-5.2); ALKALINE PHOSPHATASE 164 U/L (46-116); ALT/SGPT 31 U/L (7.0-40); AST/SGOT 18 U/L (<34); BILIRUBIN,TOTAL 0.5 MG/DL (0.3-1.2); BLOOD UREA NITROGEN 11 MG/DL (9-23); CARBON DIOXIDE LEVEL 30 MMOL/L (20-31); CHLORIDE LEVEL 105 MMOL/L (98-107); CREATININE FOR GFR 0.72 MG/DL (0.55-1.30); GLOMERULAR FILTRATION RATE > 60.0 (>39); GLUCOSE, FASTING 83 MG/DL (74-106); POTASSIUM SERUM 4.6 MMOL/L (3.5-5.1); SODIUM LEVEL 142 MMOL/L (136-145); TOTAL PROTEIN 7.1 G/DL (5.7-8.2)
== END ==
LOC: M SFHCADAM 13:02
PROVIDERS: ATTEND Physician Assistant Medical
DX: R10.9 Unspecified abdominal pain (principal); K92.1 Melena; R11.2 Nausea with vomiting, unspecified

== ENCOUNTER → 2024-01-16 | Outpatient (CLI) | payer MEDICARE, MEDICAID | LOC: M RAD 08:21 | PROVIDERS: ATTEND Physician Assistant Medical | DX: R10.11 Right upper quadrant pain (principal); R11.2 Nausea with vomiting, unspecified; K76.0 Fatty (change of) liver, not elsewhere classified ==

== ENCOUNTER → 2024-01-19 | Outpatient (CLI) | payer MEDICARE, MEDICAID ==
[2024-01-23 14:56] LABS: D002-IGE D FARINAE MITE < 0.10 kU/L (<0.10); E001-IGE CAT EPITHELIUM/DANDER < 0.10 kU/L (<0.10); E005-IGE DOG DANDER/HAIR/EPITH < 0.10 kU/L (<0.10); G003-IGE ORCHARD GRASS < 0.10 kU/L (<0.10); G006-IGE TIMOTHY GRASS < 0.10 kU/L (<0.10); M001-IGE PENICILLIUM CHRYSOGEN < 0.10 kU/L (<0.10); M003-IGE D pteronyssinus < 0.10 kU/L (<0.10); M006-IGE ALTERNARIA alternata < 0.10 kU/L (<0.10); M009-IGE FUSARIUM proliferatum < 0.10 kU/L (<0.10); T001-IGE MAPLE/BOX ELDER < 0.10 kU/L (<0.10); T003-IGE COMMON SILVER BIRCH < 0.10 kU/L (<0.10); T005-IGE BEECH (AMERICAN) < 0.10 kU/L (<0.10); T007-IGE OAK, WHITE < 0.10 kU/L (<0.10); T008-IGE ELM, AMERICAN WHITE < 0.10 kU/L (<0.10); T014-IGE COTTONWOOD < 0.10 kU/L (<0.10); T015-IGE ASH, WHITE < 0.10 kU/L (<0.10); T016-IGE PINE, WHITE < 0.10 kU/L (<0.10); W001-IGE RAGWEED, SHORT < 0.10 kU/L (<0.10); W003-IGE RAGWEED, GIANT < 0.10 kU/L (<0.10); W006-IGE MUGWORT < 0.10 kU/L (<0.10); W009-IGE PLANTAIN,ENGLISH < 0.10 kU/L (<0.10); W010-IGE LAMB'S QUARTER < 0.10 kU/L (<0.10); W012-IGE GOLDENROD < 0.10 kU/L (<0.10); W013-IgE COCKLEBUR IGE < 0.10 kU/L (<0.10)
[2024-01-25 11:42] LABS: G002-IGE BERMUDA GRASSOLD <0.10 kU/L
[2024-01-26 20:02] LABS: IGE HICKORY, WHITE < 0.10 kU/L (<0.10); M007-IGE BOTRYTIS cinerea < 0.10 kU/L (<0.10)
== END ==
LOC: M WUC 12:02
PROVIDERS: ATTEND Allergy & Immunology Allergy
DX: J30.89 Other allergic rhinitis (principal)

== ENCOUNTER → 2024-02-22 | Outpatient (CLI) | payer MEDICARE, MEDICAID ==
[~2024-02-22] MED LIST changes: +BENA25CA4 PO; -BOTO200I IJ; +BOTO200I INJ; +CETI-24 PO; +LANS30CA PO; +NICO14PA TD; +NICO2GUM PO; +SPIR12.9 INH
[2024-02-22 14:56] LABS: BASO % 0.4 % (0.0-1.0); EOS # 0.2 10^3/uL (0.0-0.5); EOS % 1.5 % (0.0-3.0); HEMATOCRIT 47.3 % (36.0-47.0); HEMOGLOBIN 15.2 g/dl (12.0-15.5); LYMPH # 1.9 10^3/uL (1.5-5.0); LYMPH % 19.8 % (24.0-44.0); MEAN CORPUSCULAR HEMOGLOBIN 30.4 pg (27.0-33.0); MEAN CORPUSCULAR HGB CONC 32.1 g/dl (32.0-36.5); MEAN CORPUSCULAR VOLUME 94.6 fl (80.0-96.0); MONO # 0.6 10^3/uL (0.0-0.8); MONO % 5.6 % (2.0-8.0); NEUTROPHILS % 72.2 % (36.0-66.0); PLATELET COUNT, AUTOMATED 305 10^3/uL (150-450); WHITE BLOOD COUNT 9.8 10^3/uL (4.0-10.0)
[2024-02-22 15:00] LABS: LDH LACTATE DEHYDROGENASE 198 U/L (120-246)
[2024-02-22 15:01] LABS: ALKALINE PHOSPHATASE 170 U/L (35-104); ALT/SGPT 29 U/L (7.0-40); AST/SGOT 12 U/L (<34); BILIRUBIN,TOTAL 0.3 MG/DL (0.3-1.2); BLOOD UREA NITROGEN 13 MG/DL (9-23); CALCIUM LEVEL 9.9 MG/DL (8.3-10.6); CARBON DIOXIDE LEVEL 30 MMOL/L (20-31); CHLORIDE LEVEL 106 MMOL/L (98-107); CPK CREATINE PHOSPHOKINASE 199 U/L (34-145); CREATININE FOR GFR 0.71 MG/DL (0.55-1.30); GLOMERULAR FILTRATION RATE > 60.0 (>39); GLUCOSE, FASTING 94 MG/DL (74-106); POTASSIUM SERUM 4.4 MMOL/L (3.5-5.1); SODIUM LEVEL 141 MMOL/L (136-145); TOTAL PROTEIN 7.6 G/DL (5.7-8.2)
[2024-02-22 15:04] LABS: ERYTHROCYTE SEDIMENTATION RATE 35 mm/hr (0-30)
[2024-02-23 16:26] LABS: ALDOLASE 5.4 U/L (< OR = 8.1)
[2024-03-01 20:23] LABS: ANTI JO-1 ANTIBODIES (RDL) < 11 SI (<11); ANTI-EJ AB (RDL) < 11 SI (<11); ANTI-MDA5-AB CADM-140 (RDL) < 11 SI (<11); ANTI-NXP-2 P140 (RDL) < 11 SI (<11); ANTI-OJ AB (RDL) 20 SI (<11); ANTI-PL-12 AB (RDL) < 11 SI (<11); ANTI-PL-7 AB (RDL) < 11 SI (<11); ANTI-SRP AB (RDL) < 11 SI (<11); ANTI-TIF-1 AB (RDL) < 11 SI (<11); MI 2 BETA ANTIBODIES < 11 SI (<11); MI-2 ANTIBODIES (RDL) < 11 SI (<11)
== END ==
LOC: M LABDRWAD 08:55
PROVIDERS: ATTEND Internal Medicine Rheumatology
DX: R74.8 Abnormal levels of other serum enzymes (principal); R25.2 Cramp and spasm; Z82.61 Family history of arthritis

== ENCOUNTER → 2024-02-28 | Outpatient (CLI) | payer MEDICARE, MEDICAID ==
[~2024-02-28] MED LIST changes: -BENA25CA4 PO; +BOTO200I IJ; -BOTO200I INJ; -CETI-24 PO; -LANS30CA PO; -NICO14PA TD; -NICO2GUM PO; -SPIR12.9 INH
== END ==
LOC: M WUC 08:37
PROVIDERS: ATTEND Nurse Practitioner Family
DX: R05.9 Cough, unspecified (principal); J44.1 Chronic obstructive pulmonary disease with (acute) exacerbation

== ENCOUNTER 2024-03-14 09:02 | Observation (INO) | payer MEDICARE, MEDICAID ==
[~2024-03-14] VITALS: Ht 167.6 cm; Wt 75.5 kg
[~2024-03-14 09:02] MED LIST changes: -BOTO200I IJ; +BOTO200I INJ
[2024-03-14 09:17] VITALS: TEMP 96
[2024-03-14 09:48] LABS: BASO % 0.4 % (0.0-1.0); EOS # 0.2 10^3/uL (0.0-0.5); EOS % 1.4 % (0.0-3.0); HEMATOCRIT 45.9 % (36.0-47.0); HEMOGLOBIN 15.2 g/dl (12.0-15.5); LYMPH # 2.4 10^3/uL (1.5-5.0); LYMPH % 22.3 % (24.0-44.0); MEAN CORPUSCULAR HEMOGLOBIN 30.2 pg (27.0-33.0); MEAN CORPUSCULAR HGB CONC 33.1 g/dl (32.0-36.5); MEAN CORPUSCULAR VOLUME 91.3 fl (80.0-96.0); MONO # 0.9 10^3/uL (0.0-0.8); MONO % 8.2 % (2.0-8.0); NEUTROPHILS # 7.4 10^3/uL (1.5-8.5); NEUTROPHILS % 67.3 % (36.0-66.0); PLATELET COUNT, AUTOMATED 338 10^3/uL (150-450); RED BLOOD COUNT 5.03 10^6/uL (4.00-5.40)
[2024-03-14 10:14] LABS: CK-MB VALUE MASS 5.1 NG/ML (<3.6)
[2024-03-14 10:18] LABS: ALBUMIN 3.8 G/DL (3.2-5.2); ALKALINE PHOSPHATASE 156 U/L (35-104); ALT/SGPT 27 U/L (7.0-40); AST/SGOT 15 U/L (<34); BILIRUBIN,DIRECT 0.1 MG/DL (<0.4); BILIRUBIN,TOTAL 0.4 MG/DL (0.3-1.2); BLOOD UREA NITROGEN 17 MG/DL (9-23); CALCIUM LEVEL 9.5 MG/DL (8.3-10.6); CARBON DIOXIDE LEVEL 29 MMOL/L (20-31); CHLORIDE LEVEL 105 MMOL/L (98-107); CPK CREATINE PHOSPHOKINASE 284 U/L (34-145); CREATININE FOR GFR 0.76 MG/DL (0.55-1.30); GLOMERULAR FILTRATION RATE > 60.0 (>39); GLUCOSE, FASTING 92 MG/DL (74-106); MB/CK RELATIVE INDEX 1.79 (< OR =4); POTASSIUM SERUM 4.2 MMOL/L (3.5-5.1); SODIUM LEVEL 139 MMOL/L (136-145); TOTAL PROTEIN 7.2 G/DL (5.7-8.2)
[2024-03-14] MEDS: ALBUTEROL SULFATE 2.5MG/0.5ML INH NEB SOLN INH ONE (10:29)
[2024-03-14] MEDS: IPRATROPIUM 0.5MG/ALBUTEROL 2.5MG INH SOL UD 3ML (DUONEB) NEB ONE (10:29)
[2024-03-14 11:18] LABS: CK-MB VALUE MASS 5.2 NG/ML (<3.6)
[2024-03-14 11:19] LABS: MB/CK RELATIVE INDEX 1.91 (< OR =4)
[2024-03-14] MEDS: predniSONE 20 MG TAB PO ONE (11:45)
[2024-03-14] MEDS ORDERED: BENA25CA4 PO (13:01)
[2024-03-14] MEDS ORDERED: LANS30CA PO (13:01)
[2024-03-14] MEDS ORDERED: SPIR12.9 INH (13:01)
[2024-03-14] MEDS ORDERED: CETI-24 PO (13:01)
[2024-03-14] MEDS ORDERED: PRED10TA2 PO (13:01)
[2024-03-14] MEDS ORDERED: HOME MED LIST COMPLETE! XX SCH (13:05)
[2024-03-14] MEDS ORDERED: diphenhydrAMINE 25MG CAP PO PRN (14:35)
[2024-03-14] MEDS ORDERED: CETIRIZINE (ZyrTEC) 10 MG TAB PO PRN (14:35)
[2024-03-14] MEDS ORDERED: ALBUTEROL SULFATE 2.5MG/0.5ML INH NEB SOLN NEB PRN (14:40)
[2024-03-14] MEDS: TIOTROPIUM INHALER/CAPSULE (SPIRIVA) INH SCH (15:02)
[2024-03-14] MEDS: IPRATROPIUM 0.5MG/ALBUTEROL 2.5MG INH SOL UD 3ML (DUONEB) NEB SCH (15:03)
[2024-03-14] MEDS ORDERED: NICOTINE POLACRILEX 2 MG GUM PO PRN (15:40)
[2024-03-14] MEDS: NICOTINE 14 MG/24 HR TRANSDERMAL TD SCH (19:34)
[2024-03-14] MEDS: CLOPIDOGREL 75 MG TAB PO SCH (21:15)
[2024-03-14] MEDS: ACETAMINOPHEN 500 MG TAB PO PRN (21:15)
[2024-03-14] MEDS: SYMBICORT 160/4.5MCG INHALER 6GM INH SCH (22:04)
[2024-03-15 06:00] VITALS: BP 128/68
[2024-03-15 06:42] LABS: HEMATOCRIT 45.2 % (36.0-47.0); HEMOGLOBIN 14.7 g/dl (12.0-15.5); MEAN CORPUSCULAR HEMOGLOBIN 29.9 pg (27.0-33.0); MEAN CORPUSCULAR HGB CONC 32.5 g/dl (32.0-36.5); MEAN CORPUSCULAR VOLUME 92.1 fl (80.0-96.0); PLATELET COUNT, AUTOMATED 339 10^3/uL (150-450); RED BLOOD COUNT 4.91 10^6/uL (4.00-5.40); WHITE BLOOD COUNT 10.8 10^3/uL (4.0-10.0)
[2024-03-15] MEDS: predniSONE 20 MG TAB PO SCH (08:19)
[2024-03-15 08:30] VITALS: O2SAT 90
[2024-03-15] MEDS ORDERED: NICO2GUM PO (08:35)
[2024-03-15] MEDS ORDERED: NICO14PA TD (08:35)
[2024-03-15] MEDS ORDERED: PRED20TA PO (08:35)
== END 2024-03-15 08:54 | disposition left against medical advice (07) ==
LOC: EDBD 09:02 → M ED 09:02 → M ED INP 14:41
PROVIDERS: ADMIT Student in an Organized Health Care Education/Training Program; ATTEND Student in an Organized Health Care Education/Training Program
DX: J44.1 Chronic obstructive pulmonary disease with (acute) exacerbation (principal); R09.02 Hypoxemia; B34.8 Other viral infections of unspecified site; B34.1 Enterovirus infection, unspecified; R91.8 Other nonspecific abnormal finding of lung field; J02.9 Acute pharyngitis, unspecified; M79.89 Other specified soft tissue disorders; J45.909 Unspecified asthma, uncomplicated; Z86.73 Personal history of transient ischemic attack (TIA), and cerebral infarction without residual deficits; K21.9 Gastro-esophageal reflux disease without esophagitis; G43.909 Migraine, unspecified, not intractable, without status migrainosus; Z90.89 Acquired absence of other organs; Z98.891 History of uterine scar from previous surgery; Z98.890 Other specified postprocedural states; F17.210 Nicotine dependence, cigarettes, uncomplicated; Z88.2 Allergy status to sulfonamides; Z88.5 Allergy status to narcotic agent; Z88.1 Allergy status to other antibiotic agents; Z88.6 Allergy status to analgesic agent; Z91.048 Other nonmedicinal substance allergy status; Z91.040 Latex allergy status; Z88.8 Allergy status to other drugs, medicaments and biological substances; Z79.899 Other long term (current) drug therapy; Z79.51 Long term (current) use of inhaled steroids; Z79.02 Long term (current) use of antithrombotics/antiplatelets
CPT/HCPCS: 36415; 71045; 80048; 80076; 82550; 82553; 84484; 85025; 85027; 87486; 87581; 87633; 87798; 93005; 93041; 93970; 94640; 94760; 99285; G0378; J7512

== ENCOUNTER → 2024-03-16 | Outpatient (CLI) | payer MEDICARE, MEDICAID ==
[~2024-03-16] MED LIST changes: +BENA25CA4 PO; +CETI-24 PO; +LANS30CA PO; +NICO14PA TD; +NICO2GUM PO; +SPIR12.9 INH
== END ==
LOC: M SOG 07:50
PROVIDERS: ATTEND Orthopaedic Surgery
DX: M54.2 Cervicalgia (principal); M25.512 Pain in left shoulder; Z53.8 Procedure and treatment not carried out for other reasons

== ENCOUNTER → 2024-04-05 | Outpatient (CLI) | payer MEDICARE, MEDICAID | LOC: M SOG 07:44 | PROVIDERS: ATTEND Orthopaedic Surgery | DX: M54.2 Cervicalgia (principal); M25.512 Pain in left shoulder ==

== ENCOUNTER → 2024-04-19 | Outpatient (CLI) | payer MEDICARE, MEDICAID | LOC: M WHC 13:43 | PROVIDERS: ATTEND Family Medicine | DX: Z53.9 Procedure and treatment not carried out, unspecified reason (principal) ==

== ENCOUNTER → 2024-05-24 | Outpatient (CLI) | payer MEDICARE, MEDICAID | LOC: M CARPUL 08:58 | PROVIDERS: ATTEND Internal Medicine Cardiovascular Disease | DX: R07.9 Chest pain, unspecified (principal); R94.31 Abnormal electrocardiogram [ECG] [EKG]; I45.10 Unspecified right bundle-branch block; F40.240 Claustrophobia ==

== ENCOUNTER → 2024-06-20 | Outpatient (CLI) | payer MEDICARE, MEDICAID | LOC: M WHC 08:36 | PROVIDERS: ATTEND Family Medicine | DX: Z12.31 Encounter for screening mammogram for malignant neoplasm of breast (principal) ==

== ENCOUNTER → 2024-06-25 | Outpatient (CLI) | payer MEDICARE, MEDICAID | LOC: M RAD 10:29 | PROVIDERS: ATTEND Family Medicine | DX: R60.0 Localized edema (principal) ==

== ENCOUNTER → 2024-07-02 | Outpatient (CLI) | payer MEDICARE, MEDICAID | LOC: M RAD 07:57 | PROVIDERS: ATTEND Family Medicine | DX: Z87.891 Personal history of nicotine dependence (principal) ==

== ENCOUNTER → 2024-07-11 | Outpatient (REF) | payer MEDICARE, MEDICAID | LOC: M SFHCADAM 12:24 | PROVIDERS: ATTEND Family Medicine | DX: Z53.21 Procedure and treatment not carried out due to patient leaving prior to being seen by health care provider (principal) ==

== ENCOUNTER 2024-07-18 22:34 | Emergency (ER) | payer MEDICAID, MEDICARE ==
[~2024-07-18] VITALS: Ht 167.6 cm; Wt 86.3 kg
[2024-07-18 22:35] VITALS: BP 151/78; TEMP 97.2; O2SAT 95
[2024-07-18] MEDS: traMADol 50 MG TAB PO ONE (23:53)
[2024-07-19] MEDS ORDERED: TRAM50TA2 PO (01:37)
== END 2024-07-19 02:07 | disposition home or self-care (01) ==
LOC: M ED 22:34
DX: S50.11XA Contusion of right forearm, initial encounter (principal); I65.21 Occlusion and stenosis of right carotid artery; X58.XXXA Exposure to other specified factors, initial encounter; Y92.9 Unspecified place or not applicable; Y93.9 Activity, unspecified; Y99.9 Unspecified external cause status; J45.909 Unspecified asthma, uncomplicated; J44.9 Chronic obstructive pulmonary disease, unspecified; K21.9 Gastro-esophageal reflux disease without esophagitis; E78.5 Hyperlipidemia, unspecified; Z86.73 Personal history of transient ischemic attack (TIA), and cerebral infarction without residual deficits; Z98.61 Coronary angioplasty status; Z79.899 Other long term (current) drug therapy; Z88.2 Allergy status to sulfonamides; Z91.89 Other specified personal risk factors, not elsewhere classified; Z88.1 Allergy status to other antibiotic agents; Z88.5 Allergy status to narcotic agent; Z88.8 Allergy status to other drugs, medicaments and biological substances; Z91.040 Latex allergy status

== ENCOUNTER 2024-07-19 12:15 | Emergency (ER) | payer MEDICARE ==
[~2024-07-19] VITALS: Ht 167.6 cm; Wt 79.5 kg
[~2024-07-19 12:15] MED LIST changes: +TRAM50TA2 PO
[2024-07-19 13:24] LABS: HEMATOCRIT 43.8 % (36.0-47.0); HEMOGLOBIN 13.9 g/dl (12.0-15.5); MEAN CORPUSCULAR HEMOGLOBIN 29.3 pg (27.0-33.0); MEAN CORPUSCULAR HGB CONC 31.7 g/dl (32.0-36.5); MEAN CORPUSCULAR VOLUME 92.2 fl (80.0-96.0); PLATELET COUNT, AUTOMATED 289 10^3/uL (150-450); RED BLOOD COUNT 4.75 10^6/uL (4.00-5.40); WHITE BLOOD COUNT 7.7 10^3/uL (4.0-10.0)
[2024-07-19 13:47] LABS: ATYPICAL LYMPH 1 % (0-5); BASOPHILS 1 % (0-1); EOSINOPHILS 2 % (0-3); LYMPHOCYTES 29 % (16-44); MONOCYTES 5 % (0-5); NEUTROPHILS 62 % (28-66)
[2024-07-19 13:48] LABS: ANISOCYTOSIS 1+; PLATELET ESTIMATE NORMAL (NORMAL)
[2024-07-19 14:05] LABS: CK-MB VALUE MASS 4.1 NG/ML (<3.6)
[2024-07-19 14:18] LABS: CALCIUM LEVEL 9.1 MG/DL (8.3-10.6); CREATININE FOR GFR 0.79 MG/DL (0.55-1.30); GLOMERULAR FILTRATION RATE 79.9 (>39); MB/CK RELATIVE INDEX 2.08 (< OR =4); POTASSIUM SERUM 3.9 MMOL/L (3.5-5.1)
[2024-07-19] MEDS ORDERED: ISOVUE-370 76% 100ML VIAL As Ordered ONE (14:41)
[2024-07-19 15:26] LABS: CK-MB VALUE MASS 3.9 NG/ML (<3.6)
[2024-07-19 15:33] LABS: MB/CK RELATIVE INDEX 1.94 (< OR =4)
[2024-07-19 16:00] VITALS: BP 103/58; O2SAT 96
[2024-07-19 16:49] VITALS: TEMP 96.8
== END 2024-07-19 16:49 | disposition home or self-care (01) ==
LOC: M ED 12:15 → EDBD 12:15 → M ED 16:49
DX: R07.89 Other chest pain (principal); I74.2 Embolism and thrombosis of arteries of the upper extremities; I50.9 Heart failure, unspecified; E78.5 Hyperlipidemia, unspecified; J45.909 Unspecified asthma, uncomplicated; K21.9 Gastro-esophageal reflux disease without esophagitis; J44.9 Chronic obstructive pulmonary disease, unspecified; Z86.73 Personal history of transient ischemic attack (TIA), and cerebral infarction without residual deficits; F17.200 Nicotine dependence, unspecified, uncomplicated; Z79.899 Other long term (current) drug therapy; Z88.8 Allergy status to other drugs, medicaments and biological substances; Z88.2 Allergy status to sulfonamides; Z91.89 Other specified personal risk factors, not elsewhere classified; Z88.1 Allergy status to other antibiotic agents; Z88.5 Allergy status to narcotic agent; Z91.040 Latex allergy status; Z91.02 Food additives allergy status
CPT/HCPCS: 71045; 71275; 80048; 82550; 82553; 84484; 85025; 93005; 99284; Q9967

== ENCOUNTER → 2024-07-31 | Outpatient (REF) | payer MEDICARE, MEDICAID ==
[~2024-07-31] MED LIST changes: +FURO20TA2 PO
== END ==
LOC: M SFHCADAM 10:48
PROVIDERS: ATTEND Family Medicine
DX: Z53.21 Procedure and treatment not carried out due to patient leaving prior to being seen by health care provider (principal)

== ENCOUNTER 2024-08-02 17:50 | Emergency (ER) | payer MEDICARE, MEDICAID ==
[~2024-08-02] VITALS: Ht 167.6 cm; Wt 84.9 kg
[~2024-08-02 17:50] MED LIST changes: -FURO20TA2 PO
[2024-08-02 17:55] VITALS: BP 147/72; TEMP 98.4; O2SAT 96
[2024-08-02] MEDS ORDERED: FURO20TA2 PO (18:03)
== END 2024-08-02 18:37 | disposition left against medical advice (07) ==
LOC: M ED 17:50
DX: Z53.21 Procedure and treatment not carried out due to patient leaving prior to being seen by health care provider (principal)

== ENCOUNTER → 2024-08-07 | Outpatient (REF) | payer MEDICARE, MEDICAID ==
[~2024-08-07] MED LIST changes: +FURO20TA2 PO
[2024-08-07 14:48] LABS: ALBUMIN 3.9 G/DL (3.2-5.2); BILIRUBIN,TOTAL 0.3 MG/DL (0.3-1.2); CALCIUM LEVEL 9.2 MG/DL (8.3-10.6); CREATININE FOR GFR 0.74 MG/DL (0.55-1.30); GLOMERULAR FILTRATION RATE 86.4 (>39); POTASSIUM SERUM 4.1 MMOL/L (3.5-5.1)
== END ==
LOC: M SFHCADAM 09:51
PROVIDERS: ATTEND Family Medicine
DX: R60.0 Localized edema (principal)

== ENCOUNTER → 2024-08-21 | Outpatient (CLI) | payer MEDICARE, MEDICAID | LOC: M RAD 12:45 | PROVIDERS: ATTEND Family Medicine | DX: R10.32 Left lower quadrant pain (principal) ==

== ENCOUNTER → 2024-08-22 | Outpatient (CLI) | payer MEDICARE, OTHER | LOC: M RAD 12:22 | PROVIDERS: ATTEND Physician Assistant Medical | DX: R09.A2 Foreign body sensation, throat (principal) ==

== ENCOUNTER → 2024-10-31 | Outpatient (REF) | payer MEDICARE, MEDICAID ==
[~2024-10-31] MED LIST changes: +AMIT10TA11 PO; -AMIT10TA7 PO; +HYDR-3364 PO; -HYDR-4570 PO
[2024-10-31 19:33] LABS: CALCIUM LEVEL 9.6 MG/DL (8.3-10.6); CARBON DIOXIDE LEVEL 29.0 MMOL/L (20-31); CHLORIDE LEVEL 104.0 MMOL/L (98-107); CREATININE FOR GFR 0.88 MG/DL (0.55-1.30); GLOMERULAR FILTRATION RATE 70.2 (>39); POTASSIUM SERUM 4.5 MMOL/L (3.5-5.1); SODIUM LEVEL 145.0 MMOL/L (136-145)
== END ==
LOC: M LABDRWAD 18:42 → M LABWUC 18:42
PROVIDERS: ATTEND Registered Nurse
DX: G95.9 Disease of spinal cord, unspecified (principal)

== ENCOUNTER → 2024-12-06 | Outpatient (CLI) | payer MEDICARE, MEDICAID | LOC: M SOG 06:47 | PROVIDERS: ATTEND Orthopaedic Surgery | DX: M19.041 Primary osteoarthritis, right hand (principal); M19.042 Primary osteoarthritis, left hand ==

== ENCOUNTER → 2025-01-31 | Outpatient (CLI) | payer MEDICARE, MEDICAID | LOC: M PLAIMG 12:29 | PROVIDERS: ATTEND Physician Assistant | DX: R91.8 Other nonspecific abnormal finding of lung field (principal); J43.9 Emphysema, unspecified; K76.0 Fatty (change of) liver, not elsewhere classified ==

== ENCOUNTER → 2025-02-14 | Outpatient (CLI) | payer MEDICARE, MEDICAID | LOC: M WHC 08:04 | PROVIDERS: ATTEND Otolaryngology | DX: E07.89 Other specified disorders of thyroid (principal) ==

== ENCOUNTER 2025-02-19 12:10 | Emergency (ER) | payer MEDICARE, MEDICAID ==
[~2025-02-19] VITALS: Ht 170.2 cm; Wt 90.4 kg
[2025-02-19 12:14] VITALS: TEMP 97.3
[2025-02-19 13:45] LABS: ALT/SGPT 62.0 U/L (7.0-40); AST/SGOT 36.0 U/L (<34); CALCIUM LEVEL 9.1 MG/DL (8.3-10.6); CARBON DIOXIDE LEVEL 27.0 MMOL/L (20-31); CHLORIDE LEVEL 106.0 MMOL/L (98-107); CREATININE FOR GFR 0.87 MG/DL (0.55-1.30); GLOMERULAR FILTRATION RATE 71.2 (>39); POTASSIUM SERUM 4.4 MMOL/L (3.5-5.1); SODIUM LEVEL 144.0 MMOL/L (136-145)
[2025-02-19 15:42] LABS: BASO # 0.0 10^3/uL (0.0-0.2); BASO % 0.5 % (0.0-1.0); EOS # 0.2 10^3/uL (0.0-0.5); EOS % 1.9 % (0.0-3.0); LYMPH # 2.6 10^3/uL (1.5-5.0); LYMPH % 30.4 % (24.0-44.0); MONO # 0.6 10^3/uL (0.0-0.8); MONO % 7.2 % (2.0-8.0); NEUTROPHILS # 5.1 10^3/uL (1.5-8.5); NEUTROPHILS % 59.4 % (36.0-66.0); PLATELET COUNT, AUTOMATED 328 10^3/uL (150-450)
[2025-02-19 16:30] VITALS: BP 141/67
[2025-02-19 17:09] LABS: CK-MB VALUE MASS 7.1 NG/ML (<3.6)
[2025-02-19] MEDS ORDERED: ISOVUE-370 76% 100 ML VIAL As Ordered ONE (17:09)
[2025-02-19 17:18] LABS: CPK CREATINE PHOSPHOKINASE 348.0 U/L (34-145); MB/CK RELATIVE INDEX 2.04 (< OR =4)
[2025-02-19 17:24] LABS: KETONE, URINE AUTO RFX NEGATIVE (NEGATIVE); LEUKOCYTE ESTERASE UR AUTO RFX NEGATIVE (NEGATIVE); MUCUS, URINE RFX SMALL (NEGATIVE); NITRITE, URINE AUTO RFX NEGATIVE (NEGATIVE); RBC, URINE AUTO RFX 1 /HPF (0-3); SQUAM EPITHELIAL CELL UR AURFX 6 /HPF (0-6); WBC, URINE AUTO RFX 1 /HPF (0-3)
[2025-02-19 17:55] VITALS: O2SAT 78
[2025-02-19] MEDS ORDERED: REGL10TA6 PO (19:04)
== END 2025-02-19 19:35 | disposition home or self-care (01) ==
LOC: M ED 12:10
DX: A08.4 Viral intestinal infection, unspecified (principal); R19.7 Diarrhea, unspecified; R74.01 Elevation of levels of liver transaminase levels; S32.592A Other specified fracture of left pubis, initial encounter for closed fracture; K57.30 Diverticulosis of large intestine without perforation or abscess without bleeding; I70.0 Atherosclerosis of aorta; K76.0 Fatty (change of) liver, not elsewhere classified; J45.909 Unspecified asthma, uncomplicated; K21.9 Gastro-esophageal reflux disease without esophagitis; G40.909 Epilepsy, unspecified, not intractable, without status epilepticus; E78.5 Hyperlipidemia, unspecified; Z88.1 Allergy status to other antibiotic agents; Z88.2 Allergy status to sulfonamides; Z88.5 Allergy status to narcotic agent; Z88.8 Allergy status to other drugs, medicaments and biological substances; Z91.040 Latex allergy status; Z91.09 Other allergy status, other than to drugs and biological substances; Z79.1 Long term (current) use of non-steroidal anti-inflammatories (NSAID); Z79.52 Long term (current) use of systemic steroids; Z79.899 Other long term (current) drug therapy; Y92.9 Unspecified place or not applicable; Y93.9 Activity, unspecified; Y99.9 Unspecified external cause status
CPT/HCPCS: 36415; 71046; 74174; 80053; 81001; 82550; 82553; 83605; 84484; 85025; 93005; 99284; Q9967

== ENCOUNTER → 2025-02-20 | Outpatient (REF) | payer MEDICARE, MEDICAID ==
[~2025-02-20] MED LIST changes: +REGL10TA6 PO
== END ==
LOC: M LAB REF 10:30
DX: K62.5 Hemorrhage of anus and rectum (principal); R19.7 Diarrhea, unspecified; R10.30 Lower abdominal pain, unspecified